=== PATIENT | female | born 1950 | race Caucasian/White ===

== ENCOUNTER → 2017-12-06 09:41 | Outpatient (CLI) | payer MEDICARE, OTHER, SELFPAY ==
--- NOTE | 2017-12-06 09:51 | XR_ITS ---
XR KUB HISTORY: ITS.REASON: SLOW TRANSIT CONSTIPATION,LLQ PAIN ORDERING PHYSICIAN: Apolonia Carbajal PATIENT AGE: 67 years COMPARISON: None FINDINGS: There is a moderate amount retained colonic feces throughout the colon. Full calcified gallstones are present. No evidence of small bowel obstruction. Small calcific densities overlie the kidneys and may be vascular. No acute bony anomalies. IMPRESSION: 1. Constipation. 2. Cholelithiasis
== END ==
PROVIDERS: PCP Nurse Practitioner Family; Visit Provider Nurse Practitioner Family
DX: R10.32 Left lower quadrant pain (principal); K59.01 Slow transit constipation
CPT/HCPCS: 74018

== ENCOUNTER → 2018-01-17 09:05 | Outpatient (CLI) | payer MEDICARE, OTHER, SELFPAY ==
[2018-01-17 10:18] LABS: Blood Urea Nitrogen 15 mg/dL (7-18); Creatinine,Serum 1.03 mg/dL (0.55-1.02); Estimated Glomerular Filt Rate 53 ml/min (>60); GFR (African American) 65 ML/MIN (>60)
--- NOTE | 2018-01-17 10:31 | CT_ITS ---
CT abdomen wo/w con CLINICAL INDICATION: ITS.REASON: LEFT KIDNEY MASS ORDERING PHYSICIAN: Apolonia Carbajal PATIENT AGE: 67 years COMPARISON: 12/17/2017 TECHNIQUE: Axial images obtained without and with contrast with sagittal and coronal reformats. All CT scans at the facility use one or more dose reduction, viz: automated exposure control, ma/kV adjustment per patient size (including targeted exams where dose is matched to indication, i.e. head), or iterative reconstruction technique. PROCEDURE: Oral Contrast: None IV Contrast: 75 mL of Isovue-370. FINDINGS: Lung base images show coronary artery calcifications. Hypoattenuating left breast mass once again noted at 4 cm consistent with seroma. Gallstones with distended gallbladder is noted.. On the portal venous phase enhanced images there are multiple small hypoattenuating lesions within the liver. 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 In addition, there are several isodense lesion of the spleen which are demonstrated on the portal venous phase images measuring up to 16 mm not readily apparent on the delayed or unenhanced images possibly due to hemangiomas. There are small lymph nodes in the celiac region. A parenchymal calcification present involving the left kidney superiorly and laterally at 4 mm no change with associated scar. There is an exophytic left renal nodule measuring 2 cm along the lower pole of the left kidney. Unenhanced density is 38 Hounsfield units. This does show some mild enhancement of 67 Hounsfield units. Delayed images show the density of 30 Hounsfield units. This may very well be due to a complex cyst. Ultrasound may confirm. No hydronephrosis. 3. Moderate amount retained colonic feces. IMPRESSION: 1. 2 cm left renal exophytic nodule which may be due to a complex cyst. Consider ultrasound for confirmation. 2. Multiple hypoattenuating small hepatic lesions as described above seen only on the immediate enhanced images consistent with biliary hamartomas 3. Cholelithiasis. 4. Hypoattenuating splenic lesions seen on the portal phase images which may be due to hemangiomas
== END ==
PROVIDERS: PCP Nurse Practitioner Family; Visit Provider Nurse Practitioner Family
DX: N28.89 Other specified disorders of kidney and ureter (principal)
CPT/HCPCS: 36415; 74170; 82565; 84520; Q9967

== ENCOUNTER → 2018-02-01 09:40 | Outpatient (CLI) | payer MEDICARE, OTHER, SELFPAY ==
--- NOTE | 2018-02-01 09:41 | US_ITS ---
US abdomen complete HISTORY: Abdominal pain and weight loss ITS.REASON: gallbladder problem, abdominal pain ORDERING PHYSICIAN: Jorge Walker MD PATIENT AGE: 67 years COMPARISON: None FINDINGS: PANCREAS:Unremarkable. No obvious mass or abnormal fluid collection. No ductal dilatation LIVER:No focal liver lesions demonstrated. Homogeneous echogenicity. No intrahepatic biliary ductal dilatation evident. There is appropriate direction of blood flow within a normal sized portal vein RIGHT KIDNEY:Normal size right kidney with some mild cortical scarring. A 13 mm cyst is present along the upper pole. LEFT KIDNEY:No hydronephrosis. Mild cortical scarring. 2.5 cm cyst is present along the lower pole and a 2.3 cm cyst along the upper pole. GALLBLADDER:Gallstones are present. Gallbladder is slightly distended and a x 4.5 cm. No gallbladder wall thickening, pericholecystic fluid, or common duct dilatation. AORTA:No evidence of aneurysmal dilatation. SPLEEN:Unremarkable. Normal size and echogenicity ASCITES:None demonstrated. IMPRESSION: 1. Cholelithiasis with mildly distended gallbladder 2. Bilateral renal cysts
--- NOTE | 2018-02-01 12:28 | CI_ITS ---
Cerebrovascular Exam Indications: 785.9 Bruit. IMPRESSIONS 1. The bilateral vertebral arteries are patent with normal antegrade flow. 2. Study suggests less than 20% stenosis involving the right internal carotid artery. 3. Study suggests 20-49% stenosis involving the left internal carotid artery, lower end of the scale. Carotid duplex study. Complete study and Doppler flow study including spectral analysis, color and patterson scale imaging. Weight: Weight: 63.5kg. Weight: 139.7lb. Location: Vascular laboratory. Patient status: Outpatient. Tables: Arterial flow: + +--------+--------+ Location V sys V ed + +--------+--------+ Right CCA - proximal 74.8cm/s 11.3cm/s + +--------+--------+ Right CCA - distal 55.3cm/s 15.1cm/s + +--------+--------+ Right ECA 52.2cm/s -------- + +--------+--------+ Right ICA - proximal 55.3cm/s 22cm/s + +--------+--------+ Right ICA - mid 68.5cm/s 24.5cm/s + +--------+--------+ Right ICA - distal 111cm/s 32.1cm/s + +--------+--------+ Right vertebral 46.5cm/s -------- + +--------+--------+ Left CCA - proximal 61.6cm/s 8.2cm/s + +--------+--------+ Left CCA - distal 51.5cm/s 13.2cm/s + +--------+--------+ Left ECA 53.1cm/s -------- + +--------+--------+ Left ICA - proximal 46.4cm/s 13.6cm/s + +--------+--------+ Left ICA - mid 64.9cm/s 22cm/s + +--------+--------+ Left ICA - distal 67.7cm/s 19.2cm/s + +--------+--------+ Left vertebral 50.6cm/s -------- + +--------+--------+ Velocity ratios: + + + + + + Right, V sys Right, V ed Left, V sys Left, V ed + + + + + + Max ICA/dist CCA 2.01 2.13 1.31 1.67 + + + + + + (Report amended ) Electronically signed by: Miles Stone [id number]
== END ==
PROVIDERS: PCP Nurse Practitioner Family; Visit Provider Surgery
DX: K82.9 Disease of gallbladder, unspecified (principal); R10.9 Unspecified abdominal pain; E11.9 Type 2 diabetes mellitus without complications; I45.10 Unspecified right bundle-branch block; R09.89 Other specified symptoms and signs involving the circulatory and respiratory systems; Z01.818 Encounter for other preprocedural examination
CPT/HCPCS: 76700; 93880

== ENCOUNTER → 2018-04-21 14:11 | Outpatient (CLI) | payer MEDICARE, OTHER, SELFPAY ==
[2018-04-21 14:56] LABS: Basophils % 0.2 % (0.1-2.0); Eosinophils % 0.2 % (0.1-12.0); Hematocrit 35.1 % (37.0-47.0); Hemoglobin 12.4 g/dL (12.2-16.2); Lymphocytes # 1.2 K/mm3 (0.7-4.5); Lymphocytes % 11.8 % (10-50); Mean Corpuscular HGB Conc 35.3 g/dL (31.8-35.4); Mean Corpuscular Hemoglobin 31.4 pg (27.0-31.2); Mean Corpuscular Volume 88.8 fl (81-99); Mean Platelet Volume 6.7 fl (7.4-10.4); Monocytes # 0.8 K/mm3 (0.1-1.0); Monocytes % 7.7 % (1.7-9.3); Neutrophils # 7.8 K/mm3 (1.8-7.8); Neutrophils % 80.1 % (37.0-80.0); Platelet Count 167 K/mm3 (142-424); Red Blood Count 3.95 M/mm3 (4.20-5.40); Red Cell Distribution Width 14.5 % (11.5-17.5); White Blood Count 9.8 K/mm3 (4.8-10.8)
[2018-04-21 16:09] LABS: Alanine Aminotransferase 13 U/L (12-78); Albumin Level 3.4 gm/dL (3.4-5.0); Albumin/Globulin Ratio 1.1 (1.1-1.8); Alkaline Phosphatase 96 U/L (46-116); Anion Gap 15.8 mEq/L (5-15); Aspartate Amino Transferase 11 U/L (15-37); Bilirubin,Total 0.6 mg/dL (0.2-1.0); Blood Urea Nitrogen 18 mg/dL (7-18); Calcium 9.2 mg/dL (8.5-10.1); Carbon Dioxide 27 mmol/L (21.0-32.0); Chloride 98 mmol/L (98-107); Creatinine,Serum 1.14 mg/dL (0.55-1.02); Estimated Glomerular Filt Rate 47 ml/min (>60); Free T4 (Free Thyroxine) 1.05 ng/dl (0.76-1.46); GFR (African American) 57 ML/MIN (>60); Globulin 3.1 gm/dl (1.3-3.2); Glucose 154 mg/dL (74-106); Magnesium 1.8 mg/dL (1.4-2.2); Sodium 138 mmol/L (136-145); Thyroid Stimulating Hormone 4.16 uIU/ml (0.358-3.740); Total Protein,Serum 6.5 gm/dL (6.4-8.2)
[2018-04-21 16:25] LABS: Potassium 2.8 mmoL/L (3.5-5.1)
== END ==
PROVIDERS: Visit Provider Nurse Practitioner Family
DX: R53.1 Weakness (principal); R63.4 Abnormal weight loss
CPT/HCPCS: 36415; 80053; 83735; 84439; 84443; 85025

== ENCOUNTER → 2018-06-01 12:38 | Outpatient (CLI) | payer MEDICARE, OTHER, SELFPAY ==
--- NOTE | 2018-06-01 12:48 | CT_ITS ---
CT head/brain wo con HISTORY: Memory loss, confusion, altered mental status ITS.REASON: memory changes ORDERING PHYSICIAN: Trisha Grider MD PATIENT AGE: 68 years COMPARISON: None TECHNIQUE: Axial images obtained without contrast. Brain and bone windows reviewed. All CT scans at the facility use one or more dose reduction, viz: automated exposure control, ma/kV adjustment per patient size (including targeted exams where dose is matched to indication, i.e. head), or iterative reconstruction technique. FINDINGS: No midline shift, mass effect, intracranial hemorrhage, hydrocephalus, or extra-axial fluid collection is evident. There is mild generalized atrophy with mild periventricular ischemic gliotic change. The calvarium has an unremarkable appearance. No mastoid effusion. No sinus air-fluid levels.. IMPRESSION: 1. No acute finding. 2. Atrophy with mild periventricular ischemic gliotic change
[2018-06-01 13:14] LABS: Blood Urea Nitrogen 22 mg/dL (7-18); Creatinine,Serum 1.08 mg/dL (0.55-1.02); Estimated Glomerular Filt Rate 50 ml/min (>60); GFR (African American) 61 ML/MIN (>60)
== END ==
PROVIDERS: Visit Provider Specialist
DX: F09 Unspecified mental disorder due to known physiological condition (principal); F20.9 Schizophrenia, unspecified; R41.3 Other amnesia
CPT/HCPCS: 36415; 70450; 82565; 84520

== ENCOUNTER → 2018-07-03 12:06 | Outpatient (CLI) | payer MEDICARE, OTHER, SELFPAY ==
[2018-07-03 13:58] LABS: Erythrocyte Sedimentation Rate 11 mm/hr (0-30)
[2018-07-03 15:52] LABS: Alanine Aminotransferase 12 U/L (12-78); Albumin Level 3.4 gm/dL (3.4-5.0); Albumin/Globulin Ratio 1.2 (1.1-1.8); Alkaline Phosphatase 126 U/L (46-116); Anion Gap 9.1 mEq/L (5-15); Aspartate Amino Transferase 10 U/L (15-37); Bilirubin,Total 0.3 mg/dL (0.2-1.0); Blood Urea Nitrogen 23 mg/dL (7-18); Calcium 8.9 mg/dL (8.5-10.1); Carbon Dioxide 32 mmol/L (21.0-32.0); Chloride 100 mmol/L (98-107); Creatinine,Serum 1.02 mg/dL (0.55-1.02); Estimated Glomerular Filt Rate 54 ml/min (>60); GFR (African American) 65 ML/MIN (>60); Globulin 2.9 gm/dl (1.3-3.2); Glucose 142 mg/dL (74-106); Potassium 4.1 mmoL/L (3.5-5.1); Sodium 137 mmol/L (136-145); Total Protein,Serum 6.3 gm/dL (6.4-8.2)
[2018-07-04 12:39] LABS: Folate 7.6 ng/mL (>3.0); Rapid Plasma Reagin Ab Titer Non Reactive (NonRea<1:1); Vitamin B12 692 pg/mL (232-1245)
[2018-07-04 14:31] LABS: Anti-Centromere B Antibodies <0.2 AI (0.0-0.9); Anti-Jo-1 <0.2 AI (0.0-0.9); Anti-Smith Antibody <0.2 AI (0.0-0.9); Antichromatin Antibodies <0.2 AI (0.0-0.9); Antiscleroderma-70 Antibodies <0.2 AI (0.0-0.9); RNP Antibodies <0.2 AI (0.0-0.9); Sjogren's Anti-SS-A <0.2 AI (0.0-0.9); Sjogren's Anti-SS-B <0.2 AI (0.0-0.9)
[2018-07-04 15:30] LABS: Anti-DNA (DS) Ab Qn <1 IU/mL (0-9)
== END ==
PROVIDERS: Visit Provider Specialist
DX: F09 Unspecified mental disorder due to known physiological condition (principal); F20.9 Schizophrenia, unspecified; R41.3 Other amnesia
CPT/HCPCS: 36415; 80053; 82607; 82746; 84443; 85651; 86225; 86235; 86592

== ENCOUNTER → 2019-01-22 09:37 | Outpatient (CLI) | payer MEDICARE, OTHER, SELFPAY ==
[2019-01-22 10:22] LABS: Basophils % 0.5 % (0.1-2.0); Eosinophils # 0.2 K/mm3 (0.0-0.4); Eosinophils % 4.5 % (0.1-12.0); Hemoglobin 12.7 g/dL (12.2-16.2); Lymphocytes # 1.5 K/mm3 (0.7-4.5); Lymphocytes % 29.9 % (10-50); Mean Corpuscular HGB Conc 33.4 g/dL (31.8-35.4); Mean Corpuscular Hemoglobin 30.4 pg (27.0-31.2); Mean Corpuscular Volume 91.2 fl (81-99); Mean Platelet Volume 7.5 fl (7.4-10.4); Monocytes # 0.3 K/mm3 (0.1-1.0); Neutrophils # 2.9 K/mm3 (1.8-7.8); Neutrophils % 59.1 % (37.0-80.0); Platelet Count 157 K/mm3 (142-424); Red Blood Count 4.16 M/mm3 (4.20-5.40); Red Cell Distribution Width 12.9 % (11.5-17.5); White Blood Count 4.9 K/mm3 (4.8-10.8)
[2019-01-22 10:27] LABS: INR 0.99 (0.9-1.1); Prothrombin Time 10.3 seconds (9.4-11.8)
== END ==
PROVIDERS: Visit Provider Nurse Practitioner Family
DX: R42 Dizziness and giddiness (principal); R53.1 Weakness; Z51.81 Encounter for therapeutic drug level monitoring
CPT/HCPCS: 36415; 85025; 85610

== ENCOUNTER → 2019-04-20 14:00 | Outpatient (CLI) | payer MEDICARE, OTHER, SELFPAY ==
--- NOTE | 2019-04-20 14:07 | XR_ITS ---
PROCEDURE: XR LUMBAR SPINE MIN 4V CLINICAL INDICATION: LOW BACK PAIN COMPARISON: ABDWW CT abdomen wo/w con from 01/17/2018 FINDINGS: There straightening of the lumbar lordosis. There is multilevel degenerative disc disease at T12-L1 L1-L2 L2-L3 L4-5 and L5-S1. No fracture or dislocation. Multiple gallstones are noted. There is a mild amount of retained colonic feces and there is mild lumbar curvature convex right. Small bilateral renal calcifications are present and could be vascular. IMPRESSION: 1. Lumbar spondylosis. 2. Cholelithiasis Dictated by: Miles Stone MD 04/20/2019 17:47 Electronically signed by Miles Stone MD in [place] 04/20/2019 17:47
== END ==
PROVIDERS: PCP Nurse Practitioner Family; Visit Provider Nurse Practitioner Family
DX: M54.5 Low back pain (principal)
CPT/HCPCS: 72110

== ENCOUNTER → 2019-05-24 10:18 | Outpatient (CLI) | payer MEDICARE, OTHER, SELFPAY ==
--- NOTE | 2019-05-24 10:21 | MM_ITS ---
PROCEDURE: MM DIG SCREENING MAMM BI W/CAD CLINICAL INDICATION: SCREENING A history of breast cancer patient's maternal aunt. There has been a previous lumpectomy with follow-up radiation therapy left breast. COMPARISON: DIAG MAMMO BI-LAT W/ CAD from 03/07/2014 DIAG MAMMO BI-LAT W/ CAD from 08/28/2015 [facility] DIG MAMM-SCREEN KIMBERLY W/CAD from 10/06/2016 TECHNIQUE: Standard CC and MLO images were obtained. Mónica images were performed. FINDINGS: Prominent diffuse scattered fibroglandular densities are seen in both breasts. There is a large stable asymmetric density just deep to the nipple left breast at the previous lumpectomy site with inward dimpling of the skin and nipple. There are surgical clips at the lumpectomy site. There are scattered benign-appearing microcalcifications in each breast. There is a stable cluster of benign-appearing microcalcifications lower inner quadrant right breast. . There is stable asymmetric benign-appearing nodular density upper right breast. There is minimal scattered arterial calcification in each breast. There is no new or suspicious lesion in either breast mónica images were reviewed showing no suspicious abnormality. IMPRESSION: Moderate diffuse breast density with stable and postsurgical changes as described above BI-RAD Category: 2 Benign Finding(s) FOLLOW-UP: 1YR 1 Year Follow-up (A letter has been sent to the patient regarding results of the study.) Dictated by: Dr. Jesse Thomas MD 05/29/2019 09:[address] Jesse Thomas MD in [place] 05/29/2019 09:32
== END ==
PROVIDERS: PCP Nurse Practitioner Family; Visit Provider Nurse Practitioner Family
DX: Z12.31 Encounter for screening mammogram for malignant neoplasm of breast (principal)
CPT/HCPCS: 77063; 77067

== ENCOUNTER → 2019-11-22 13:56 | Outpatient (CLI) | payer MEDICARE, OTHER, SELFPAY ==
--- NOTE | 2019-11-22 14:04 | XR_ITS ---
PROCEDURE: XR SHOULDER RT MIN 2V CLINICAL INDICATION: RT SHOULDER INJURY Pain COMPARISON: No exams were available for comparison FINDINGS: No fracture or dislocation. No lytic or blastic change. There is normal mineralization. There is some mild cortical regularity of the greater tuberosity which may be seen with rotator cuff disease. Other findings:None. IMPRESSION: Mild irregularity at the greater tuberosity which may be seen with rotator cuff disease otherwise negative Dictated by: Miles Stone MD 11/22/2019 14:31 Electronically signed by Miles Stone MD in [place] 11/22/2019 14:31
== END ==
PROVIDERS: PCP Nurse Practitioner Family; Visit Provider Nurse Practitioner Family
DX: S49.91XA Unspecified injury of right shoulder and upper arm, initial encounter (principal)
CPT/HCPCS: 73030

== ENCOUNTER → 2020-01-01 12:59 | Outpatient (CLI) | payer MEDICARE, OTHER, SELFPAY ==
--- NOTE | 2020-01-01 | MR_ITS ---
PROCEDURE: MR SHOULDER RT WO CON CLINICAL INDICATION: RT SHOULDER PAIN Pt c/o rt shoulder pain. She states she may have injured it pulling up on a walker to stand. Prior xray rt shoulder 11/22/2019 COMPARISON: CR XR SHOULDER RT MIN 2V from 11/22/2019 TECHNIQUE: Routine multiplanar multi echo sequences are performed without gadolinium enhancement. FINDINGS: There are hypertrophic changes of the acromioclavicular joint. There is a complete tear of the supraspinatus tendon in its mid aspect along the mid aspect of the humeral head region. There is mild retraction of the supraspinatus muscle and tendon. The infraspinatus tendon appears intact.. There appears to be a partial tear of the subscapularis tendon distally and superiorly. The teres minor tendon is intact. The long head of the biceps tendon is not visualized superiorly and could be torn. There is good degree of motion artifact at this area as well which could obscure the tendon. No obvious labral tear. There is a small shoulder joint effusion. Fluid is present in subcoracoid region and in the subacromial area. Small amount fluid also present in the subdeltoid area. There is a small amount of edema within the humeral neck. Osteoarthritic changes are present at the glenohumeral joint. IMPRESSION: 1. Complete tear of the supraspinatus tendon 2. Partial tear of the subscapularis tendon 3. The long head of the biceps tendon is not adequately visualized superiorly and may also be torn. There is some fluid in the bicipital tendon sheath. Motion artifact does obscure visualization at this area and could give the false impression of a bicipital tendon tear. 4. Osteoarthritic change with shoulder joint effusion and subcoracoid bursitis Dictated by: Miles Stone MD 01/03/2020 09:37 Miles Stone MD in [place] 01/03/2020 09:37
== END ==
PROVIDERS: PCP Nurse Practitioner Family; Visit Provider Nurse Practitioner Family
DX: S49.91XA Unspecified injury of right shoulder and upper arm, initial encounter (principal)
CPT/HCPCS: 73221

== ENCOUNTER 2020-04-02 14:00 | Outpatient (RCR) | payer MEDICARE, OTHER, SELFPAY ==
--- NOTE | 2020-02-27 10:48 | HMH.OTOPEV ---
OT Inpatient Evaluation Rehab OT Outpatient Eval Start: 02/27/20 10:18 Freq: Status: Active Protocol: Document 02/27/20 10:18 RMARSHALL (Rec: 02/27/20 10:48 [id number] Electronically Signed By Elyssa Marshall OT 02/27/20 10:18 Outpatient Therapy Subjective History Subjective History Pt is a 69 year old female who reports to therapy for initial evaluation to right shoulder. Pt reports she injured her shoulder while pulling on her walker to stand up from her couch. She explains when she pulled herself up, her shoulder popped and she had immediate pain. According to her notes this accident happened in October . Pt has had an MRI completed confirming a complete tear at supraspinatus, partial tear at subscapularis, and a possible complete tear of long head of the biceps tendon ( not visible on MRI). Pt does demonstrate with decreased AROM and strength at right shoulder. Pt is right hand dominant. Pt expresses she does not want to have surgery due to health concerns ( diabetes). Pt will continue to be seen twice weekly in order to address all functional deficits of right shoulder. Chief Complaint Pain,Stiff,Weakness Symptom Type Ache,Throb,Sharp,Dull Symptoms Relieved By Rest/Positioning Symptoms Aggravated By Physical Activity,Lifting Prior Functional Limitations None Current Functional Limitations Reaching,Lifting,Housework, Dressing,Sleeping,Recreation Activity Symptom Description Intermittent,Activity Dependent Level of pain today (0-10) 0 Pain scale - at its best (0-10) 0 Pain scale - at its worst (0-10) 9 Shoulder/Elbow Eval Shoulder Objective Measurements Shoulder ROM Right Shoulder Abduction Active Range of 95 degrees Motion (degrees) Shoulder Flexion Active Range of Motion 85 degrees (degrees) Query Text:
--- NOTE | 2020-03-31 13:52 | HMH.RHREAS ---
Rehab Reassessment Rehab OP Re-assessment Start: 03/31/20 13:05 Freq: Status: Active Protocol: Document 03/31/20 13:05 MAVIS (Rec: 03/31/20 13:52 MAVIS [id number]) Electronically Signed By Elyssa Marshall OT 03/31/20 13:05 Rehab Re-assessment Subjective Subjective It still hurts. Objective Objective Notes Pt continues to be seen in order to address right shoulder deficits. Pt engages in R shoulder AROM/AAROM/ strengthening exercses. Pt also receives modalities in order to decrease pain/ inflammation at right shoulder . Assessment Progress Assessment Progressing as Expected Assessment Notes Pt reports she is still continuing to have pain at the right shoulder despite therapy treatment. However, pt's AROM has improved significantly since beginning therapy. Pt claims she realizes her motion is much better and she is now able to do tasks she was not able to do prior to therapy. Pt rates her pain at a 6/10 at worst now. Current R shoulder AROM; MMT Flex: 130 degrees; 3+ Abd: 150 degrees; 3+ ER: 75 degrees: 3+ IR: 60 degrees: 3+ Patient goals met Short term goals have been met Goals Not Met LTG Revised Goals Continue progressing towards shelter goals written on initial evaluation. Plan Plan Continue with OT plan of care at this time. Frequency of Therapy 2 x's a week Duration of therapy 4 more weeka Time and Billing Re-Eval Time 10 Re-Eval Billing Units 1 PHYSICIAN CERTIFICATION: I certify the specified therapy services for Bea Escobar are required, authorized, and reviewed every 30 days.
== END 2020-04-02 15:00 | disposition home or self-care (01) ==
LOC: OT 14:00
PROVIDERS: PCP Nurse Practitioner Family; Visit Provider Orthopaedic Surgery
DX: M75.101 Unspecified rotator cuff tear or rupture of right shoulder, not specified as traumatic (principal); M12.811 Other specific arthropathies, not elsewhere classified, right shoulder
CPT/HCPCS: 97014; 97110; 97164; 97166; G0283

== ENCOUNTER → 2020-06-26 14:12 | Outpatient (CLI) | payer MEDICARE, OTHER, SELFPAY ==
--- NOTE | 2020-06-26 14:28 | XR_ITS ---
PROCEDURE: XR ANKLE RT MIN 3V CLINICAL INDICATION: ACUTE RT ANKLE PAIN COMPARISON: No exams were available for comparison FINDINGS: No fracture or dislocation. No lytic or blastic change. There is normal mineralization. The joint spaces are well-preserved. No significant degenerative/arthritic changes. No erosive changes evident. Other findings:Generalized vascular calcification is present. IMPRESSION: No acute findings. Dictated by: Miles Stone MD 06/26/2020 14:56 Miles Stone MD in [place] 06/26/2020 14:56
== END ==
PROVIDERS: PCP Nurse Practitioner Family; Visit Provider Nurse Practitioner Family
DX: M25.571 Pain in right ankle and joints of right foot (principal)
CPT/HCPCS: 73610

== ENCOUNTER → 2020-07-30 08:37 | Outpatient (CLI) | payer MEDICARE, OTHER, SELFPAY ==
--- NOTE | 2020-07-30 | US_ITS ---
APPROVED REPORT Exam Type: Ankle to Brachial Index Behaviorist: Lise RCS, RVS Indications Rest Pain: Right complains of burning sensation in right foot Risk Factors Hypertension Hyperlipidemia Pressures/Indices Right Indices Left Indices Brachial 172.00 mmHg Brachial 169.00 mmHg Low Thigh 194.00 mmHg 1.13 Low Thigh 184.00 mmHg 1.07 Ankle(PT) Ankle(PT) 164.00 mmHg 0.95 Ankle(DP) Ankle(DP) 202.00 mmHg 1.17 Digit 131.00 mmHg 0.76 Digit 161.00 mmHg 0.94 Findings RT TEREZA=Non compressible LT TEREZA=1.17 RT TPI=0.76 LT TPI=0.94 Conclusion RT TEREZA=Non compressible LT TEREZA=1.17 RT TPI=0.76 LT TPI=0.94 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
--- NOTE | 2020-07-30 08:41 | US_ITS ---
PROCEDURE: US KIDNEY CLINICAL INDICATION: NODULE OF KIDNEY COMPARISON: No exams were available for comparison FINDINGS: The right kidney is 10cmx5.2x5cm. No hydronephrosis, cortical thinning, or renal mass or perinephric fluid collection is evident. The left kidney is [id number]. No hydronephrosis, cortical thinning, or renal soft tissue mass or perinephric fluid collection is evident. Anechoic lesions are noted in the kidneys bilaterally measuring up to 1.2 centimeters. No other focal suspicious masses. The Multiple gallstones are partially visualized. IMPRESSION: Bilateral renal anechoic lesions measuring up to 1.2 centimeters, likely represent cysts. Dictated by: Alaina Sparrow 07/30/2020 11:20 Alaina Sparrow in [place] 07/30/2020 11:20
== END ==
PROVIDERS: PCP Nurse Practitioner Family; Visit Provider Nurse Practitioner Family
DX: M79.604 Pain in right leg (principal); M79.605 Pain in left leg; R09.89 Other specified symptoms and signs involving the circulatory and respiratory systems; N28.89 Other specified disorders of kidney and ureter
CPT/HCPCS: 76770; 93923

== ENCOUNTER → 2020-08-07 11:37 | Outpatient (CLI) | payer MEDICARE, OTHER, SELFPAY ==
--- NOTE | 2020-08-07 12:16 | MM_ITS ---
PROCEDURE: MM DIG SCREENING MAMM BI W/CAD Digital Breast Tomosynthesis Included CLINICAL INDICATION: SCREENING There has been a previous lumpectomy for malignancy left breast. There is history of breast cancer patient's maternal. COMPARISON: MG DIAG MAMMO BI-LAT W/ CAD from 08/28/2015 MG [facility] DIG MAMM-SCREEN KIMBERLY W/CAD from 10/06/2016 MG MM DIG SCREENING MAMM BI W/CAD from 05/24/2019 TECHNIQUE: Standard CC and MLO images and 3D Tomosynthesis was obtained. R2 CAD reviewed. FINDINGS: Again noted is a large mass deep to the nipple left breast associated surgical clips inward retraction and these findings are stable unchanged from 3 previous mammograms consistent previous lumpectomy. There is mild spiculation of the border of this mass but this has been seen previously and is stable. There is mild diffuse skin thickening probably due to previous radiation therapy. Scattered fibroglandular densities are seen throughout both breast. There is arterial calcification in both breasts and scattered benign-appearing microcalcifications are seen in both breasts. A stable benign-appearing nodular density upper-outer quadrant right breast. IMPRESSION: Stable mass and post lumpectomy scarring left breast with no suspicious lesion right breast BI-RAD Category: 2 Benign Finding(s) FOLLOW-UP: 1YR 1 Year Follow-up (A letter has been sent to the patient regarding results of the study.) Dictated by: Dr. Jesse Thomas MD 08/08/2020 11:59 Dr. Jesse Thomas MD in [place] 08/08/2020 11:59
== END ==
PROVIDERS: PCP Nurse Practitioner Family; Visit Provider Nurse Practitioner Family
DX: Z12.31 Encounter for screening mammogram for malignant neoplasm of breast (principal)
CPT/HCPCS: 77063; 77067

== ENCOUNTER → 2021-06-15 10:01 | Outpatient (CLI) | payer MEDICARE, OTHER, SELFPAY ==
--- NOTE | 2021-06-15 | US_ITS ---
FINAL REPORT CLINICAL HISTORY: ELEVATED LIVER ENZYMES FINDINGS: Sonographic images of the right upper quadrant were obtained. The pancreas is partially obscured. The liver has increased echogenicity consistent with fatty infiltration. The gallbladder wall measures 4 mm which is mildly thickened but nonspecific. There are numerous stones, sludge and polyps in the gallbladder. There is no evidence of biliary ductal dilatation.The common duct measures 2 mm. Limited images of the right kidney shows a 1.4 cm cyst in the renal cortex. IMPRESSION: Right renal cyst as described. Fatty infiltrated liver. Numerous stones, sludge and polyps in the gallbladder. Mildly thickened gallbladder wall, cholecystitis is not excluded. If indicated, nuclear medicine hepatobiliary scan may be helpful. Reviewed, Interpreted and Dictated by Jorge Bush III, MD Transcribed by Ronda Mckenna Authenticated by Jorge Bush III, MD on 06/15/2021 12:30:05 PM [facility]
== END ==
PROVIDERS: PCP Family Medicine; Visit Provider Nurse Practitioner Family
DX: R74.8 Abnormal levels of other serum enzymes (principal)
CPT/HCPCS: 76705

== ENCOUNTER → 2021-08-06 10:51 | Outpatient (CLI) | payer MEDICARE, OTHER, SELFPAY ==
--- NOTE | 2021-08-06 10:55 | MM_ITS ---
PROCEDURE INFORMATION: Exam: MG Bilateral Screening 3D Mammography Exam date and time: 08/06/2021 10:57 AM Age: 71 years old Clinical indication: Screening examination; history of left lumpectomy for carcinoma TECHNIQUE: Imaging protocol: Bilateral Screening tomosynthesis and 2D mammography including computer-aided detection (CAD) when performed. COMPARISON: 1. MG MM DIG SCREENING MAMM BI W/CAD 08/07/2020 1:01 PM 2. MG MM DIG SCREENING MAMM BI W/CAD 05/24/2019 11:00 AM FINDINGS: MAMMOGRAPHY: Breast composition: The breast tissue is composed of scattered areas of fibroglandular density. Mass: Stable 4.6 cm mass in the lumpectomy site, most likely reflecting a chronic seroma Architectural distortion: Stable post operative architectural distortion in the left central breast with associated overlying skin thickening and retraction due to prior lumpectomy for carcinoma. Calcifications: No suspicious calcifications. Asymmetric density: None. Skin thickening: see above. Axillary adenopathy: There is very limited evaluation of the posterior left breast due to the patient's inability to fully cooperate with the examination. IMPRESSION: No mammographic evidence of malignancy. Annual screening is recommended unless otherwise clinically indicated. ASSESSMENT: BI-RADS Category 2: Benign
== END ==
PROVIDERS: PCP Nurse Practitioner Family; Visit Provider Nurse Practitioner Family
DX: Z12.31 Encounter for screening mammogram for malignant neoplasm of breast (principal)
CPT/HCPCS: 77063; 77067

== ENCOUNTER 2022-02-19 11:00 | Outpatient (RCR) | payer MEDICARE, OTHER, SELFPAY | END 2022-02-19 11:05 | disposition home or self-care (01) | LOC: OT 11:00 | PROVIDERS: PCP Nurse Practitioner Family; Visit Provider Nurse Practitioner Family | DX: M25.511 Pain in right shoulder (principal); S46.011D Strain of muscle(s) and tendon(s) of the rotator cuff of right shoulder, subsequent encounter | CPT/HCPCS: 97010; 97014; 97110; 97140; 97166; G0283 ==

== ENCOUNTER → 2022-05-14 13:37 | Outpatient (CLI) | payer MEDICARE, OTHER, SELFPAY ==
--- NOTE | 2022-05-14 13:41 | MM_ITS ---
PROCEDURE INFORMATION: Exam: MG Left Diagnostic Breast Tomosynthesis Exam date and time: 05/14/2022 1:47 PM Age: 72 years old Clinical indication: Concern for left axillary swelling. Personal history of left breast cancer, status post lumpectomy. TECHNIQUE: Imaging protocol: Left Diagnostic tomosynthesis and 2D mammography including computer-aided detection (CAD) when performed. Unilateral or bilateral exam. COMPARISON: 1. MG MM DIG SCREENING MAMM BI W/CAD 08/06/2021 10:57 AM 2. MG MM DIG SCREENING MAMM BI W/CAD 08/07/2020 1:01 PM 3. MG MM DIG SCREENING MAMM BI W/CAD 05/24/2019 11:00 AM 4. MG [facility] DIG MAMM-SCREEN KIMBERLY W/CAD 10/06/2016 10:20 AM FINDINGS: MAMMOGRAPHY: Breast composition: There are scattered areas of fibroglandular density. Mass: Stable 4.6 cm mass at the lumpectomy site most likely reflecting a chronic seroma. No suspicious mass. Architectural distortion: Stable postoperative architectural distortion deformity in retraction in the left central breast related to lumpectomy. Calcifications: No suspicious calcifications. Asymmetric density: None. Skin thickening: Stable skin thickening. Axillary adenopathy: Limited visualization of the axilla and posterior left breast due to history of the patient's inability to cooperate fully with the examination. IMPRESSION: Patient will be recalled for left axillary ultrasound for further evaluation of left axilla, with history of left axillary swelling and limited visualization of the left axilla on mammography. Further evaluation of a palpable abnormality should be based on clinical grounds regardless of radiographic findings or lack thereof. No mammographic evidence of malignancy. ASSESSMENT: BI-RADS Category 0: Incomplete- Need Additional Imaging Evaluation and/or Prior Mammograms for Comparison
--- NOTE | 2022-05-14 13:41 | US_ITS ---
PROCEDURE INFORMATION: Exam: US Left Breast, Complete Exam date and time: 05/14/2022 3:07 PM Age: 72 years old Clinical indication: Arm, upper; Left; Patient HX: PT has lt axillary swelling-- scanned RT breast also; Additional info: L axillary swelling, HX of breast cancer TECHNIQUE: Imaging protocol: Complete ultrasound of all four quadrants of the Left breast and the retroareolar regions, including ultrasound of the axilla when performed. COMPARISON: No relevant recent comparison exams. FINDINGS: Breast: High resolution sonography of the LEFT breast shows marked shadowing at site of lumpectomy with questionable underlying 3.1 x 4.5 cm nodule demonstrating punctate internal vascularity. A few scattered echogenic nodules with hypoechoic cortex adjacent to the site of the scar/axilla. IMPRESSION: 1. Questionable 3.1 x 4.5 cm nodule with extensive shadowing underlying the site lumpectomy scar. 2. Benign-appearing lymph nodes with diffusely fatty hilum adjacent to the surgical site/LEFT axilla. ASSESSMENT: BI-RADS 0: Need Additional Imaging Evaluation and/or Mammograms For Comparison
== END ==
PROVIDERS: PCP Nurse Practitioner Family; Visit Provider Nurse Practitioner Family
DX: M79.89 Other specified soft tissue disorders (principal); Z85.3 Personal history of malignant neoplasm of breast
CPT/HCPCS: 76882; 77061; 77065; G0279

== ENCOUNTER → 2022-08-09 12:52 | Outpatient (CLI) | payer MEDICARE, OTHER, SELFPAY ==
--- NOTE | 2022-08-09 12:55 | MM_ITS ---
PROCEDURE INFORMATION: Exam: MG Bilateral Screening 3D Mammography Exam date and time: 08/09/2022 12:50 PM Age: 72 years old Clinical indication: Screening mammogram TECHNIQUE: Imaging protocol: Bilateral Screening tomosynthesis and 2D mammography including computer-aided detection (CAD) when performed. COMPARISON: 1. The MG MM DIG MAMM DX UNILAT LT CAD 05/14/2022 1:47 PM 2. 05/24/2019 3. MG MM DIG SCREENING MAMM BI W/CAD 08/06/2021 10:57 AM 4. MG MM DIG SCREENING MAMM BI W/CAD 08/07/2020 1:01 PM 5. MG MM DIG SCREENING MAMM BI W/CAD 05/24/2019 11:00 AM FINDINGS: MAMMOGRAPHY: Breast composition: There are scattered areas of fibroglandular density. Mass: Stable benign-appearing nodules are present in the bilateral breasts. No new or morphologically suspicious nodule has developed to suggest malignancy. Architectural distortion: No new or suspicious architectural distortion. Calcifications: Stable benign-appearing calcifications are present. No new or suspicious cluster of microcalcifications have developed. Asymmetric density: No new or suspicious asymmetric density is present Skin thickening: None. Axillary adenopathy: None. Other findings: Stable postoperative findings on the left IMPRESSION: No mammographic evidence of malignancy. Recommend annual screening mammography unless otherwise clinically indicated. ASSESSMENT: BI-RADS category 2: Benign
== END ==
PROVIDERS: PCP Nurse Practitioner Family; Visit Provider Nurse Practitioner Family
DX: Z12.31 Encounter for screening mammogram for malignant neoplasm of breast (principal)
CPT/HCPCS: 77063; 77067

== ENCOUNTER → 2022-09-16 13:46 | Outpatient (CLI) | payer MEDICARE, OTHER, SELFPAY ==
[2022-09-16 14:41] LABS: Basophils % 0.4 % (0.1-2.0); Eosinophils # 0.2 K/mm3 (0.0-0.4); Hematocrit 42.4 % (37.0-47.0); Hemoglobin 13.9 g/dL (12.2-16.2); Lymphocytes # 1.8 K/mm3 (0.7-4.5); Lymphocytes % 29.9 % (10-50); Mean Corpuscular HGB Conc 32.8 g/dL (31.8-35.4); Mean Corpuscular Hemoglobin 30.8 pg (27.0-31.2); Mean Corpuscular Volume 93.8 fl (81-99); Mean Platelet Volume 8.1 fl (7.4-10.4); Monocytes # 0.4 K/mm3 (0.1-1.0); Monocytes % 7.2 % (1.7-9.3); Neutrophils # 3.5 K/mm3 (1.8-7.8); Neutrophils % 59.5 % (37.0-80.0); Platelet Count 187 K/mm3 (142-424); Red Blood Count 4.52 M/mm3 (4.20-5.40); Red Cell Distribution Width 13.2 % (11.5-17.5); White Blood Count 5.9 K/mm3 (4.8-10.8)
[2022-09-16 15:29] LABS: Alanine Aminotransferase 24 U/L (12-78); Albumin Level 4.4 g/dl (3.5-5.0); Alkaline Phosphatase 163 U/L (38-126); Anion Gap 18.3 mEq/L (5-15); Aspartate Amino Transferase 31 U/L (14-36); Bilirubin,Indirect 0.3 mg/dL (0.0-0.9); Bilirubin,Total 0.3 mg/dl (0.2-1.3); Bilirubin,Unconjugated 0.5 mg/dL (0.0-1.1); Blood Urea Nitrogen 21 mg/dl (7-17); Calcium 9.2 mg/dl (8.4-10.2); Carbon Dioxide 29 mmol/L (22.0-30.0); Chloride 94 mmol/L (98-107); Chol/HDL Ratio 3.4 (1-3.5); Cholesterol 198 mg/dl (140-200); Estimated Glomerular Filt Rate 62 ml/min (>60); GFR (African American) 74 ML/MIN (>60); Glucose 212 mg/dl (74-100); HDL Cholesterol 58 mg/dl (40-60); Magnesium 1.9 mg/dl (1.6-2.3); Potassium 4.3 mmoL/L (3.5-5.1); Sodium 137 mmol/L (136-145); Total Protein,Serum 6.8 g/dl (6.3-8.2); Triglycerides 174 mg/dl (30-150); VLDL Cholesterol 35 mg/dL (0-40)
[2022-09-16 15:40] LABS: Direct LDL Cholesterol 106.15 mg/dL (100-129)
[2022-09-16 15:49] LABS: Free T4 (Free Thyroxine) 0.93 ng/dl (0.78-2.19)
[2022-09-16 16:00] LABS: Thyroid Stimulating Hormone 2.08 uIU/mL (0.465-4.68)
== END ==
PROVIDERS: PCP Nurse Practitioner Family; Visit Provider Nurse Practitioner
DX: E11.9 Type 2 diabetes mellitus without complications (principal); E78.5 Hyperlipidemia, unspecified; I10 Essential (primary) hypertension; I65.23 Occlusion and stenosis of bilateral carotid arteries; R06.00 Dyspnea, unspecified
CPT/HCPCS: 36415; 80048; 80061; 80076; 83735; 84439; 84443; 85025

== ENCOUNTER → 2022-09-22 12:33 | Outpatient (CLI) | payer MEDICARE, OTHER, SELFPAY ==
--- NOTE | 2022-09-22 12:47 | CA_ITS ---
FINAL REPORT TECHNIQUE: Color Doppler, duplex Doppler and patterson scale sonography of the bilateral neck arterial vasculature was performed. Velocities were measured in the carotid arteries. Stenosis evaluation based on the validated velocity criteria. CLINICAL HISTORY: baltazar, HTN, HLD, DM, dizziness. FINDINGS: The peak systolic velocity of the right common carotid artery is 67 cm/s. The peak systolic velocity of the right internal carotid artery is 107 cm/s and end diastolic velocity 21 cm/s. The ICA/CCA ratio is 2.1. A small amount of plaque is present. The right external carotid artery is patent. The right vertebral artery is patent with antegrade flow. The peak systolic velocity of the left common carotid artery is 70 cm/s. The peak systolic velocity of the left internal carotid artery is 69 cm/s and end diastolic velocity 18 cm/s. The ICA/CCA ratio is 1.1. A small amount of plaque is present. The left external carotid artery is patent.The left vertebral artery is patent with antegrade flow. IMPRESSION: Less than 50% bilateral carotid stenoses. Bilateral patent vertebral arteries with antegrade flow. If indicated, CTA or MRA could further evaluate. Reviewed, Interpreted and Dictated by Jorge Bush III, MD Transcribed by Elizabeth Banks Authenticated and [facility]
== END ==
PROVIDERS: PCP Nurse Practitioner Family; Visit Provider Nurse Practitioner Family
DX: E11.9 Type 2 diabetes mellitus without complications (principal); E78.5 Hyperlipidemia, unspecified; I10 Essential (primary) hypertension; I65.23 Occlusion and stenosis of bilateral carotid arteries; Z79.84 Long term (current) use of oral hypoglycemic drugs
CPT/HCPCS: 93880

== ENCOUNTER → 2022-09-30 14:12 | Outpatient (CLI) | payer MEDICARE, OTHER, SELFPAY ==
--- NOTE | 2022-09-30 14:26 | XR_ITS ---
FINAL REPORT CLINICAL HISTORY: RIGHT HIP PAIN. COMPARISON: None FINDINGS: RIGHT HIP Two views of the right hip demonstrate no acute fracture or dislocation. The visualized bony structures are well aligned. No soft tissue abnormality is seen. There is mild narrowing of the right hip joint with degenerative subchondral cyst formation in the acetabulum, particularly its lateral aspect. IMPRESSION: No acute bony abnormality. Mild degenerative change in the right hip as described above. Reviewed, Interpreted and Dictated by Rangel Meade MD Transcribed by Karen Ventura Authenticated and [facility]
== END ==
PROVIDERS: PCP Nurse Practitioner Family; Visit Provider Nurse Practitioner Family
DX: M25.551 Pain in right hip (principal)
CPT/HCPCS: 73502

== ENCOUNTER → 2023-02-21 11:38 | Outpatient (CLI) | payer MEDICARE, OTHER, SELFPAY ==
--- NOTE | 2023-02-21 11:49 | XR_ITS ---
FINAL REPORT CLINICAL HISTORY: ALKALINE PHOSPHATASE ABOVE REFERANCE RANGE FINDINGS: 2 views of the chest were obtained . The heart is normal in size. The mediastinum is within normal limits. The lungs are clear. There is no pneumothorax. Osseous structures are unremarkable. IMPRESSION: No acute cardiopulmonary process. Reviewed, Interpreted and Dictated by Jorge Bush III, MD Transcribed by Obdulia Gaxiola Authenticated and . [facility]
== END ==
PROVIDERS: PCP Nurse Practitioner Family; Visit Provider Nurse Practitioner Family
DX: R74.8 Abnormal levels of other serum enzymes (principal)
CPT/HCPCS: 71046

== ENCOUNTER → 2023-03-01 12:56 | Outpatient (CLI) | payer MEDICARE, OTHER, SELFPAY ==
--- NOTE | 2023-03-01 | US_ITS ---
FINAL REPORT CLINICAL HISTORY: DM, HLD, HTN, claudication. FINDINGS: COMPLETE ANKLE/BRACHIAL INDICES BILATERAL Complete ankle brachial indices were obtained. The right TEREZA is 1.1. The left TEREZA is 1.2. IMPRESSION: ABIs are within normal limits bilaterally. Reviewed, Interpreted and Dictated by Jorge Bush III, MD Transcribed by Elizabeth Banks Authenticated and [facility]
== END ==
PROVIDERS: PCP Nurse Practitioner Family; Visit Provider Nurse Practitioner Family
DX: R09.89 Other specified symptoms and signs involving the circulatory and respiratory systems
CPT/HCPCS: 93923

== ENCOUNTER → 2023-04-20 11:29 | Outpatient (CLI) | payer MEDICARE, OTHER, SELFPAY ==
[2023-04-20 11:51] LABS: Basophils % 0.3 % (0.1-2.0); Eosinophils # 0.2 K/mm3 (0.0-0.4); Eosinophils % 3.2 % (0.1-12.0); Hematocrit 39.3 % (37.0-47.0); Hemoglobin 13.6 g/dL (12.2-16.2); Lymphocytes # 1.7 K/mm3 (0.7-4.5); Lymphocytes % 28.5 % (10-50); Mean Corpuscular HGB Conc 34.6 g/dL (31.8-35.4); Mean Corpuscular Hemoglobin 31.8 pg (27.0-31.2); Mean Corpuscular Volume 91.9 fl (81-99); Mean Platelet Volume 7.4 fl (7.4-10.4); Monocytes # 0.4 K/mm3 (0.1-1.0); Monocytes % 7.6 % (1.7-9.3); Neutrophils # 3.5 K/mm3 (1.8-7.8); Neutrophils % 60.5 % (37.0-80.0); Platelet Count 143 K/mm3 (142-424); Red Blood Count 4.27 M/mm3 (4.20-5.40); Red Cell Distribution Width 13.4 % (11.5-17.5); White Blood Count 5.8 K/mm3 (4.8-10.8)
[2023-04-20 12:26] LABS: Chloride 94 mmol/L (98-107); Sodium 133 mmol/L (136-145)
[2023-04-20 12:28] LABS: Alanine Aminotransferase 31 U/L (12-78); Aspartate Amino Transferase 36 U/L (14-36); Bilirubin,Unconjugated 0.1 mg/dL (0.0-1.1); Blood Urea Nitrogen 27 mg/dl (7-17); Estimated Glomerular Filt Rate 54 ml/min (>60); GFR (African American) 66 ML/MIN (>60)
[2023-04-20 12:29] LABS: Albumin Level 4.2 g/dl (3.5-5.0); Alkaline Phosphatase 134 U/L (38-126); Bilirubin,Direct 0.3 mg/dl (0.0-0.4); Bilirubin,Indirect 0.1 mg/dL (0.0-0.9); Bilirubin,Total 0.4 mg/dl (0.2-1.3); Calcium 8.9 mg/dl (8.4-10.2); Carbon Dioxide 30 mmol/L (22.0-30.0); Chol/HDL Ratio 3.6 (1-3.5); Cholesterol 197 mg/dl (140-200); Glucose 250 mg/dl (74-100); HDL Cholesterol 55 mg/dl (40-60); Magnesium 1.9 mg/dl (1.6-2.3); Total Protein,Serum 6.7 g/dl (6.3-8.2); Triglycerides 115 mg/dl (30-150); VLDL Cholesterol 23 mg/dL (0-40)
[2023-04-20 12:41] LABS: Direct LDL Cholesterol 109.79 mg/dL (100-129)
[2023-04-20 12:46] LABS: Free T4 (Free Thyroxine) 1.02 ng/dl (0.78-2.19)
[2023-04-20 13:01] LABS: Thyroid Stimulating Hormone 2.12 uIU/mL (0.465-4.68)
== END ==
PROVIDERS: PCP Nurse Practitioner Family; Visit Provider Physician Assistant
DX: I10 Essential (primary) hypertension; R06.00 Dyspnea, unspecified; E16.2 Hypoglycemia, unspecified; E11.8 Type 2 diabetes mellitus with unspecified complications
CPT/HCPCS: 36415; 80048; 80061; 80076; 83735; 84439; 84443; 85025

== ENCOUNTER → 2023-04-28 14:19 | Outpatient (CLI) | payer MEDICARE, OTHER, SELFPAY ==
--- NOTE | 2023-04-28 | CA_ITS ---
APPROVED REPORT EXAM: Comprehensive 2D, Doppler, and color-flow Echocardiogram Sales Development Manager: Karyna Morrison RT(R) Ht: 5 ft 6 in Wt: 158lbs BSA: 1.81 BP: 144/70 mmHg Indications: edema, HTN, DM, palpitations, SOB, CAD, left breast lumpectomy. 2D Dimensions Left Atrium 3.28 cm F: 2.7 - 3.8 EF AP4 44.90 % LVOT 1.91 cm (M/F) 1.5-2.5 GL Strain -14.4 % M-Mode Dimensions RVDd 2.71 cm (0.9-2.6) LVDd 3.82 cm (3.5-5.7) Ao Diam 2.59 cm (2.0-3.7) LVDs 1.56 cm (3.5-5.7) IVSd 0.99 cm (0.6-1.1) PWd 0.78 cm (0.6-1.1) EF (Teich) 89.30% FS 59.20% EDV (Teich) 62.70 mL ESV (Teich) 6.70 mL LV Diastology E Decel Time 164 (160-240 msec) E/A Ratio 0.7 MED E' 7.5 (>= 7 cm/sec) E'/MED E' Ratio 9.11 (<= 14) LAT E' 8.1 (>= 10 cm/sec) E/LAT E' Ratio 8.43 (<= 14) Mitral Valve MV E Max Smooth. 68.0 (40-130 cm/s) MV A Velocity 103.0 (40-130 cm/s) E/A Ratio 0.66 MV Decel. Time 164 (160-240 ms) Left Ventricle The left ventricle is normal size. The left ventricular systolic function is normal. The left ventricular ejection fraction is within the normal range. There is increased LV wall thickness. There is normal LV segmental wall motion. Transmitral Doppler flow pattern suggests impaired LV relaxation. LVEF is 55%. Right Ventricle The right ventricle is mildly dilated. The right ventricular systolic function is normal. Atria The left atrium size is normal. The right atrium size is normal. There is no Doppler evidence of interatrial shunt. Aortic Valve The aortic valve is mildly thickened. There is no aortic valvular stenosis. Trace aortic regurgitation. Mitral Valve The mitral valve leaflets are mildly thickened. No evidence of mitral valve stenosis. Trace mitral regurgitation. Tricuspid Valve The tricuspid valve leaflets are thin and pliable. Trace tricuspid regurgitation. There is insufficient TR jet to estimate RVSP. Pulmonic Valve The pulmonary valve is normal in structure. Trace pulmonic regurgitation. Great Vessels The aortic root is normal in size. The ascending aorta is normal in size. IVC is normal in size and collapses >50% with inspiration. Pericardium There is no pericardial effusion. Other Information Study Quality: Fair Conclusion Normal biventricular systolic function. Mild RV dilation. No significant valvular stenosis or regurgitation. Electronically signed by : Michelle Macias MD 05/01/2023 22:07:23
== END ==
LOC: RT 14:22
PROVIDERS: PCP Nurse Practitioner Family; Visit Provider Nurse Practitioner Family
DX: R60.0 Localized edema (principal)
CPT/HCPCS: 93306

== ENCOUNTER 2023-07-12 09:49 | Outpatient (CLI) | payer MEDICARE, OTHER, SELFPAY ==
[2023-07-12 10:54] LABS: Chloride 95 mmol/L (98-107); Potassium 3.8 mmoL/L (3.5-5.1); Sodium 135 mmol/L (136-145)
[2023-07-12 10:57] LABS: Anion Gap 8.8 mEq/L (5-15); Blood Urea Nitrogen 34 mg/dl (7-17); Carbon Dioxide 35 mmol/L (22.0-30.0); Estimated Glomerular Filt Rate 49 ml/min (>60); GFR (African American) 59 ML/MIN (>60)
[2023-07-12 10:58] LABS: Calcium 9.5 mg/dl (8.4-10.2); Glucose 203 mg/dl (74-100)
== END 2023-07-12 23:59 ==
PROVIDERS: PCP Nurse Practitioner Family; Visit Provider Physician Assistant
DX: E11.9 Type 2 diabetes mellitus without complications (principal); E78.5 Hyperlipidemia, unspecified; I10 Essential (primary) hypertension; R60.9 Edema, unspecified; R06.00 Dyspnea, unspecified; Z79.84 Long term (current) use of oral hypoglycemic drugs
CPT/HCPCS: 36415; 80048

== ENCOUNTER 2023-11-09 11:03 | Outpatient (CLI) | payer MEDICARE, OTHER, SELFPAY ==
--- NOTE | 2023-11-09 11:11 | XR_ITS ---
FINAL REPORT CLINICAL HISTORY: LOWER BACK PAIN COMPARISON: 04/20/2019 FINDINGS: LUMBAR SPINE Three views demonstrate no acute fracture. There are moderate degenerative changes. There is vacuum phenomenon at L4-5, worse than previous. Vascular calcification is identified. There is rightward curvature. There is no malalignment. IMPRESSION: Degenerative changes as above. Reviewed, Interpreted and Dictated by Jorge Bush III, MD Transcribed by Elizabeth Banks Authenticated and [facility]
--- NOTE | 2023-11-09 11:43 | XR_ITS ---
FINAL REPORT CLINICAL HISTORY: PAIN FINDINGS: THORACIC SPINE Two views demonstrate no acute fracture. There is rightward curvature of the thoracic spine. Mild and moderate degenerative changes are present. There are multiple presumed gallstones in the gallbladder. There is no malalignment. IMPRESSION: Degenerative changes as above. Presumed gallstones. Reviewed, Interpreted and Dictated by Jorge Bush III, MD Transcribed by Elizabeth Banks Authenticated and . [facility]
== END 2023-11-09 23:59 | disposition home or self-care (01) ==
LOC: RAD 11:04
PROVIDERS: PCP Nurse Practitioner Family; Visit Provider Nurse Practitioner Family
DX: M54.50 Low back pain, unspecified (principal); T14.8XXA Other injury of unspecified body region, initial encounter
CPT/HCPCS: 72070; 72100

== ENCOUNTER 2025-03-11 11:14 | Inpatient (IN) | payer MEDICARE, MEDICAID, SELFPAY ==
--- OUTSIDE RECORDS SUMMARY | 2024-02-27 08:53 | XMS_ITS | Encounter Summary ---
Author Organization [place] [address] Care Team Providers Care Naturopathic Doctor Name Role Phone Apolonia Carbajal TAX INTERN Primary Care Provider Encounter Details Date Type Department Care Team (Late st Contact Info) Description 02/27/2024 9:53 AM EDT Hospital Encounter [facility] Referral Lab [address] [place], [place] [id number] Arnaldo Orr MD [address] [place] [address] Social History Tobacco Use Types Packs/Day Years Used Date Smoking Tobacco: Never Smokeless Tobacco: Never Alcohol Use Standard Drinks/Week Comments Never 0 (1 standard drink = 0.6 oz pur e alcohol) Sexually Active Control Partners Comments Not Currently Male Comments No Sex and Gender Information Value Date Recorded Sex Assigned at Not on file Legal Sex Female 5:44 PM EDT Gender Identity Not on file Sexual Orientation Not on file documented as of this encounter Plan of Treatment Not on file documented as of this encounter Results * (ABNORMAL) URINALYSIS (02/27/2024 12:50 PM EDT) UA Color Colorless 02/27/2024 4:42 PM EDT [facility] UA Appear Clear Clear 02/27/2024 4:42 PM EDT [facility] UA Glucose 4+ (>1000mg/dL) (A) Negative mg/dL 02/27/2024 4:42 PM EDT [facility] UA Ketones Negative Negative mg/dL 02/27/2024 4:42 PM EDT [facility] UA Blood Negative Negative 02/27/2024 4:42 PM EDT [facility] UA pH 6.5 5.0 - 8.0 pH 02/27/2024 4:42 PM EDT [facility] UA Protein Negative Negative mg/dL 02/27/2024 4:42 PM EDT [facility] UA Urobilinogen Normal <=1 mg/dL 4:42 PM EDT [facility] UA Bili Negative Negative 02/27/2024 4:42 PM EDT [facility] UA Nitrite Negative Negative 02/27/2024 4:42 PM EDT [facility] UA Leuk Est 2+ (75 Javier/mcl)(A) Negative 02/27/2024 4:42 PM EDT [facility] UA Spec Grav 1.023 1.001 - 1.035 no units 02/27/2024 4:42 PM EDT [facility] Comment:Reference range vanessa d for random specimens only. UA WBC 6(H) 0 - 4 /HPF 02/27/2024 4:42 PM EDT [facility] UA RBC 2 0 - 3 /HPF 02/27/2024 4:42 PM EDT [facility] UA Squam Epi 2+ /LPF 02/27/2024 4:42 PM EDT [facility] UA Mucus Trace /LPF 02/27/2024 4:42 PM EDT [facility] Urine URINE SPECIMEN COLLECTION, CLEAN CATCH / Unknown 02/27/2024 12:50 PM EDT 02/27/2024 4:27 PM EDT us Arnaldo Orr MD URINE ORDERABLES Final Result [facility] [address] [facility] , [place] [address] documented in this encounter Visit Diagnoses Not on filedocumented in this encounter Care Teams Naturopathic Doctor Relationship Specialty Start Date End Date Apolonia Carbajal APRN [address] [place] [address] PCP - General Nurse Practitioner-Family 09/13/17 documented as of this encounter
[2025-03-11] VITALS (16 sets, daily range): BP systolic 84–122; BP diastolic 38–82; PULSE 66–81; RESP 13–36; TEMP 36.4–36.8; O2SAT 86–100; BMI 31.6
--- NOTE | 2025-03-11 11:17 | XR_ITS ---
FINAL REPORT CLINICAL HISTORY: Shortness of breath COMPARISON: 01/01/2019 FINDINGS: A single frontal view of the chest was obtained. No acute pulmonary opacity is present. There is no evidence of effusion or pneumothorax. Mediastinum is unremarkable. Heart size is normal. IMPRESSION: No acute abnormality. Reviewed, Interpreted and Dictated by Jennifer Jacinto MD Transcribed by Jessica Che Authenticated and [facility]
--- NOTE | 2025-03-11 11:20 | PC.NURSE ---
Pt NT suctioned at this time. Thick white/yellow sputum suctioned.
--- NOTE | 2025-03-11 11:25 | CT_ITS ---
FINAL REPORT TECHNIQUE: Axial images were performed through the brain.This study was performed with techniques to keep radiation doses as low as reasonably achievable, (ALARA). Individualized dose reduction techniques using automated exposure control or adjustment of mA and/or kV according to the patient''s size were employed. CLINICAL HISTORY: AMS COMPARISON: 06/01/2018 FINDINGS: There is global moderate atrophy and chronic microvascular changes, stable from prior exam. The ventricles are normal in size for the degree of atrophy. There is no extra-axial fluid or midline shift. There is no evidence of acute hemorrhage or mass. IMPRESSION: Atrophy. No acute intracranial process. Reviewed, Interpreted and Dictated by Jennifer Jacinto MD Transcribed by Obdulia Gaxiola Authenticated and [facility]
--- NOTE | 2025-03-11 11:25 | ECG_ITS ---
APPROVED REPORT Exam: Resting ECG HR:65 bpm ECG Measurements Heart Rate 65 AXES ND 173 P 47 QRSd 151 QRS 90 QT 447 T 35 QTc 459 Conclusion SINUS RHYTHM INTRAVENTRICULAR CONDUCTION DELAY [130+ ms QRS DURATION] ANTERIOR MYOCARDIAL INFARCTION , OF INDETERMINATE AGE [40+ ms Q WAVE AND/OR ST/T ABNORMALITY IN V3/V4] INFERIOR MYOCARDIAL INFARCTION , OF INDETERMINATE AGE [40+ ms Q WAVE AND/OR ST/T ABNORMALITY IN II/aVF] ABNORMAL ECG UNCONFIRMED REPORT Electronically signed by : DEDRICK CHAVIS, 03/12/2025 05:23:29
--- NOTE | 2025-03-11 11:26 | CT_ITS ---
FINAL REPORT TECHNIQUE: IV contrast enhanced exam This study was performed with techniques to keep radiation doses as low as reasonably achievable, (ALARA). Individualized dose reduction techniques using automated exposure control or adjustment of mA and/or kV according to the patient''s size were employed. CLINICAL HISTORY: Sepsis, abdominal distention COMPARISON: 01/17/2018 FINDINGS: Abdomen: No acute density is seen within the lung bases. The gallbladder is unremarkable. Lower pole left renal cyst is stable. Remaining solid abdominal organs are unremarkable. Numerous tiny gallstones with distention of the gallbladder, similar to the prior study. No biliary ductal dilatation. No bowel obstruction is present. There is no free air. No fluid collection is seen. There is no adenopathy. Pelvis: The appendix is not seen, possibly removed at time of hysterectomy. Severe fecal impaction of the rectosigmoid colon. The distal sigmoid colon is distended up to 1.8 cm with stool. There is no free fluid. No pelvic mass is seen. IMPRESSION: Significant rectosigmoid fecal impaction. Cholelithiasis. Reviewed, Interpreted and Dictated by Jennifer Jacinto MD Transcribed by Jessica Che Authenticated and [facility]
--- NOTE | 2025-03-11 11:26 | CT_ITS ---
FINAL REPORT TECHNIQUE: Thin section axial CT with contrast with multiplanar reconstruction This study was performed with techniques to keep radiation doses as low as reasonably achievable, (ALARA). Individualized dose reduction techniques using automated exposure control or adjustment of mA and/or kV according to the patient''s size were employed. CLINICAL HISTORY: Respiratory distress, concern for aspiration, COMPARISON: 01/17/2018 abdomen and pelvis FINDINGS: Pulmonary vessels enhance in normal fashion without evidence of embolism. Thoracic aorta shows no dissection or aneurysm. Nonspecific perihilar airspace opacities could reflect mild edema. Vague nodularity in both lungs [id number] and greatest in the left lower lobe is compatible with bronchopneumonia. No lung mass or dense consolidation identified. There is no significant pleural effusion. There is no significant pericardial effusion. No mediastinal or hilar adenopathy is present. Low-density mass in the left breast measuring up to 41 mm may represent postoperative seroma or hematoma but stable since 2018. IMPRESSION: Bronchopneumonia, greatest in the left lower lobe. No evidence of pulmonary embolism. Left breast mass, favor postoperative fluid collection. Reviewed, Interpreted and Dictated by Jennifer Jacinto MD Transcribed by Jessica Che Authenticated and [facility]
--- NOTE | 2025-03-11 11:29 | [facility].EDCP ---
Discharge Plan Disposition Patient Disposition: Admitted Condition: Fair Clinical Impressions Clinical Impression: Bronchopneumonia, Sepsis Discharge ED Provider: Emmanuel Rincon HPI <ABBIE Fitzpatrick - Last Filed: 03/11/25 15:19> General Chief Complaint: Shortness of Breath/Dyspnea Stated Complaint: aspiration Pneu Time Seen by Provider: 03/11/25 11:15 Mode of Arrival: EMS Source of Information: EMS and Medical Record Limitations: No Limitations History of Present Illness HPI narrative: 74-year-old female presents emergency department via EMS from skilled nursing facility initially called out for seizure , patient had what appears to be witnessed seizure-like activity according to EMS and nurse staff, however on the scene patient was unresponsive, hypoxic, thus was placed on nonrebreather 15 mL of oxygen, not on any submental oxygen therapy at baseline, with some improvement of her symptomatology, patient was given DuoNeb and route per EMS. EMS states this started this morning, concern for aspiration , patient did have some vomiting per skilled nursing staff upon my examination GCS of 13, will answer to her name, somewhat hard to ascertain, due to respiratory distress, thus review of systems was not obtained due to patient state and condition. However upon medical record review patient has past medical history consistent with carotid artery stenosis, thrombocytopenia, T2DM, hyperlipidemia, hypertension, venous insufficiency, anxiety/depression. Initial triage vitals notable for tachypnea, hypotension, triggering sepsis criteria. Unknown history of substance use/abuse. Please note that above description of symptoms, in this electronic medical record under categorization of recalled from ER triage doctor by RN are reflective of an initial nursing assessment, however, is not reflective of my full history and physical exam that was personally taken and clarified. Consequentially, this preceding description of symptoms, which may include the patient's categorized chief complaint in the EMR, do not reflect my personal clinical impression, and the ultimate description of history of present illness and patient stated complaints should be deferred to this section of the note. Unless stated otherwise or congruent with this section of the note, additional signs, symptoms, or incongruence should be interpreted as inaccurate with my clinical impression. complaint: other Related Data Home Medications ?Medication ?Instructions ?Recorded ?Confirmed diclofenac sodium 50 mg 50 mg PO TID PRN 07/12/23 12/18/24 tablet,delayed release Held on 10/26/23. Instructions: Doctor's Order aspirin 81 mg tablet,delayed 81 mg PO DAILY 10/26/23 12/18/24 release divalproex 500 mg tablet,delayed 500 mg PO BID 04/18/24 12/18/24 release lisinopril 20 mg tablet 20 mg PO BID 04/18/24 12/18/24 loratadine 10 mg tablet 10 mg PO DAILY 04/18/24 12/18/24 docusate sodium 100 mg tablet 100 mg PO ONCE 06/13/24 12/18/24 (Stool Softener) torsemide 20 mg tablet 20 mg PO DAILY 06/13/24 12/18/24 trazodone 50 mg tablet 50 mg PO DAILY 06/13/24 12/18/24 pen needle, diabetic, safety 30 #100 ea 12/11/24 12/18/24 gauge x 3/16 (AutoShield Duo Pen Needle) rosuvastatin 40 mg tablet 40 mg PO DAILY 12/11/24 12/18/24 acetaminophen 500 mg capsule 500 mg PO Q6H PRN 12/18/24 12/18/24 latanoprost 0.005 % eye drops 1 drp ophthalmic (eye) DAILY 12/18/24 12/18/24 polyethylene glycol 3350 17 17 g PO DAILY 12/18/24 12/18/24 gram/dose oral powder (Miralax) Previous Rx's ?Medication ?Instructions ?Recorded carvedilol 25 mg tablet (Coreg) 25 mg PO BID #60 tabs 04/18/24 Allergies Allergy/AdvReac Type Severity Reaction Status Date / Time No Known Allergies Allergy Verified 12/18/24 11:31 FORMERLY [facility], [facility]–1983 <ABBIE Fitzpatrick - Last Filed: 03/11/25 15:19> FORMERLY [facility], [facility] Disclaimer: The information contained in this section may have been updated after the patient was seen, as this information can be updated by other users. Medical History Stenosis of carotid artery T2DM (type 2 diabetes mellitus) T1DM (type 1 diabetes mellitus) Renal disease HTN (hypertension), benign HLD (hyperlipidemia) Depression Cancer Atherosclerotic heart disease Anxiety Surgical History Hx of tonsillectomy H/O breast biopsy History of lumpectomy of left breast Family History Other Cancer Diabetes Social History Smoking Status: Unknown if ever smoked alcohol intake: never substance use type: denies use current occupational status: retired Travel in the last 8 weeks?: None number of children: 0 Other Medical History Have you received the Flu Vaccine for this season: No Have you received the Pneumonia Vaccine: Yes <ABBIE Fitzpatrick - Last Filed: 03/11/25 15:19> ROS Obtained: Yes All systems reviewed & no additional complaints except as documented Physical Exam <ABBIE Fitzpatrick - Last Filed: 03/11/25 15:19> General General appearance: alert Comment: Obvious respiratory distress, pale, ill-appearing female Head Head exam: atraumatic and normocephalic Eye Eye exam: Present PERRL and EOMI ENT ENT exam: Present mucous membranes moist Neck Neck exam: Present normal inspection Chest Chest inspection: Present normal inspection and symmetric chest wall rise Respiratory Respiratory exam: Present respiratory distress, wheezes and other (Audible wheezes/crackles that are moderate to severe in nature, noted bilaterally. Tachypnea, and use of intercostal muscles.); Absent normal lung sounds bilaterally Cardiovascular Cardiovascular exam: Present regular rate and normal rhythm Abdominal Exam Abdominal exam: Present soft; Absent tenderness, guarding, rebound or rigidity Extremities Exam Extremities exam: Present normal inspection Neurological Exam Neurological exam: Present alert and other (Answers question about place and knows name, GCS 13, obeys commands, opens eyes spontaneously); Absent oriented X3 Psychiatric Psychiatric exam: Present normal affect Skin Skin exam: Present warm and dry HEART Score <ABBIE Fitzpatrick - Last Filed: 03/11/25 15:19> HEART Score HEART Score assessment performed?: No Critical Care <ABBIE Fitzpatrick - Last Filed: 03/11/25 15:19> Critical Care Time Critical Care Time: No Medical Decision Making <ABBIE Fitzpatrick - Last Filed: 03/11/25 15:19> Medical Records Medical records reviewed: Yes I reviewed the patient's medical records. [place] Inquiry Pt receiving controlled substance: No [place] was queried for this patient: No Vital Signs Vital Signs: 03/11/25 11:06 03/11/25 11:20 03/11/25 11:45 Temperature 97.6 F Temperature Source Axillary Pulse Rate [Right Radial] 66 Respiratory Rate 36 H Blood Pressure [Right Arm] 84/38 L Blood Pressure Mean [Right Arm] 53 02 Sat by Pulse Oximetry 86 L 96 96 Oxygen Delivery Method Non-Rebreather Vapotherm Vapotherm Oxygen Flow Rate (LPM) 15 35 35 Fraction of Inspired Oxygen 70 70 03/11/25 13:05 03/11/25 15:14 Temperature Temperature Source Pulse Rate [Right Radial] Respiratory Rate Blood Pressure [Right Arm] Blood Pressure Mean [Right Arm] 02 Sat by Pulse Oximetry 95 95 Oxygen Delivery Method Vapotherm Vapotherm Oxygen Flow Rate (LPM) 35 30 Fraction of Inspired Oxygen 75 65 Lab Data Lab results reviewed: Yes I reviewed the patient's lab results. Labs: Lab Results 03/11/25 11:30: WBC 5.3, RBC 3.56 L, Hgb 11.4 L, Hct 34.1 L, MCV 95.8, MCH 32.0 H, MCHC 33.4, RDW 13.4, Plt Count 92 L, MPV 9.2, Neut % (Auto) 63.9, Lymph % (Auto) 21.1, [place] % (Auto) 13.3 H, Eos % (Auto) 0.9, Baso % (Auto) 0.2, Neut # (Auto) 3.4, Lymph # (Auto) 1.1, [place] # (Auto) 0.7, Eos # (Auto) 0.1, Baso # (Auto) 0.0, PT 12.3, INR 1.12 H, VBG pH 7.32, VBG pCO2 71.5 H, VBG pO2 40.4 H, VBG HCO3 35.8 H, VBG Total CO2 38.0 H, VBG O2 Saturation 71.0 H, VBG Base Excess 9.6 H, VBG Lactic Acid 2.7 H, Sodium 131 L, Potassium 3.9, Chloride 98, Carbon Dioxide 32 H, Anion Gap 4.9 L, BUN 28 H, Creatinine 1.30 H, Estimated Creat Clear 52, Estimated GFR 40 L, Est GFR ( Amer) 48 L, Glucose 112 H, Lactate 1.6, Calcium 9.1, Magnesium 2.0, Total Bilirubin 0.6, AST 31, ALT 14, Alkaline Phosphatase 70, Troponin I 0.01, C-Reactive Protein 6.1 H, NT-Pro-B Natriuret Pep 2520 H, Total Protein 6.0 L, Albumin 2.8 L, Globulin 3.2, Albumin/Globulin Ratio 0.9 L, Lipase 45, Procalcitonin 0.121 03/11/25 11:30 03/11/25 11:30 Response Orders (Tests/Meds): ED MEDICATIONS Generic Name Dose Route Start Last Admin Trade Name Freq PRN Reason Stop Dose Admin Sodium Chloride 10 ml 03/11/25 12:35 03/11/25 12:39 Sodium Chloride 0.9% 10ml Syr (Rad Only) IV 04/10/25 12:34 10 ml NEEDED PRN Administration Maintain IV Site Sodium Chloride 3 ml 03/11/25 14:27 Sodium Chloride 3% 15ml Neb IH 04/10/25 14:26 ONCE PRN INDUCE SPUTUM COLLECTION Discontinued Medications Generic Name Dose Route Start Last Admin Trade Name Freq PRN Reason Stop Dose Admin Piperacillin Sod/Tazobactam 50 mls @ 100 mls/hr 03/11/25 11:18 03/11/25 12:54 Sod 3.375 gm/ Sodium Chloride IV 03/11/25 11:47 Infused ONCE ONE Infusion Sodium Chloride 1,000 mls @ 500 mls/hr 03/11/25 11:24 03/11/25 12:35 Sod Chlor 0.9% 1000ml Bag IV 03/11/25 13:23 Not Given .Q2H ONE Vancomycin/PEG/NADA/Lysine/Water 1.5 gm in 300 mls @ 150 mls/hr 03/11/25 11:30 03/11/25 12:44 Vancomycin 1.5gm/300ml (Peg) Premix IV 03/11/25 13:29 150 mls/hr ONCE ONE Administration Iopamidol 70 ml 03/11/25 12:35 03/11/25 12:39 Iopamidol-370 (76%);100ml Bottle IV 03/11/25 12:36 70 ml ONCE ONE Administration Miscellaneous 1 each 03/11/25 11:30 Vancomycin Consult Request NOTAPPLIC 04/10/25 11:[address] [facility] Ondansetron HCl 4 mg 03/11/25 13:45 03/11/25 14:11 Ondansetron 4mg/2ml Vial IV 03/11/25 13:46 4 mg ONCE ONE Administration Sodium Chloride 50 ml 03/11/25 12:35 03/11/25 12:39 0.9 % Sodium Chloride 50 Ml Vial IV 03/11/25 12:36 50 ml ONCE ONE Administration ORDERS Category Date Time Status CT abdomen pelvis w con Stat Cat Scan 03/11/25 11:[address] angio chest PE protocol Stat Cat Scan 03/11/25 11:[address] head/brain wo con Stat Cat Scan 03/11/25 11:25 Completed XR chest portable Stat Exams 03/11/25 11:17 Completed CRP [C-Reactive Protein] Stat Lab 03/11/25 11:30 Completed Complete Blood Count Auto Diff Stat Lab 03/11/25 11:30 Completed Comprehensive Metabolic Panel Stat Lab 03/11/25 11:30 Completed Full Resp Panel w/COVID ([facility]) Routine Lab 03/11/25 14:28 Ordered Lactic Acid Stat Lab 03/11/25 11:30 Completed Lipase Stat Lab 03/11/25 11:30 Completed Magnesium Stat Lab 03/11/25 11:30 Completed NT Pro Brain Natriuretic Pep. Stat Lab 03/11/25 11:30 Completed PT INR [Prothrombin Time INR] Stat Lab 03/11/25 11:30 Completed Procalcitonin Urgent Lab 03/11/25 11:30 Completed Troponin I Q3H Lab 03/11/25 14:30 Ordered Troponin I Q3H Lab 03/11/25 17:30 Ordered Troponin I Stat Lab 03/11/25 11:30 Completed Urinalysis and Microscopic Stat Lab 03/11/25 11:17 Ordered Blood Culture Stat Micro 03/11/25 11:35 Received Sputum Culture & Gram Stain Stat Micro 03/11/25 14:27 Ordered VBG [Venous Blood Gas] Stat RT 03/11/25 11:30 Completed MDM Narrative Medical Decision Narrative: 74-year-old female presents the emergency department for respiratory distress,/aspiration pneumonia, see HPI for detailed past medical history, differential diagnose include but not limited to sepsis, aspiration pneumonia, pneumonitis, pleural effusion, new onset/CHF/exacerbation, acute UTI, COPD exacerbation, acid-base disturbance, pulmonary edema, cardiac arrhythmia, electrolyte disturbance, pneumonia among others. I discussed this patient case with the attending physician Will obtain basic laboratory studies, EKG, CT ab pelvis with contrast, CTA chest with and without contrast PE protocol, CTA, chest x-ray, lactic acid level, magnesium level proBNP, PT/INR, troponin, lipase, urinalysis, blood cultures, patient initially meeting sepsis criteria upon arrival, thus will give 500 mL liter IV sodium chloride dose, will hold off on 30 mg/kg sepsis bolus dosing due to concern for fluid overload based on lung auscultation/exam, will obtain VBG, and will give IV 3.375 Zosyn and pharmacy to dose vancomycin for sepsis. Patient on 15 L of nonrebreather, will call respiratory therapy for potential deep suction and other therapies, patient is documented DNR/DNI. Nursing staff had conversation with family via the phone and patient has once again documented DNR/DNI would not want any mechanical ventilation or resuscitation efforts. After examination of the patient I have low concern for seizure activity/disorder, patient has no history of seizure disorder, on divalproex for anxiety according to medication review/chart review, patient is not postictal appearing, more likely thought to be hypoxic event due to underlying pneumonia/aspiration. CBC is notable for hemoglobin and hematocrit 11.4/34.1 respectively thrombocytopenia 92 which the patient has a history of, but is decreased outside of baseline. CMP is noted for mild hyponatremia 131, BUN is elevated 28, creatinine is over 1.3, no lactic acidosis VBG is notable for 7.32 pH, pCO2 is elevated 71.5, bicarb elevated at 35.8, venous lactic acid level is elevated at 2.7. Coags unremarkable proBNP is elevated at 2520, thus will cancel fluid bolus with concern for fluid overload in the setting of respiratory failure. Initial troponin is 0.01. Respiratory therapist placed patient on high flow nasal cannula 35 and 70% after some deep suction, patient did have some improvement in her oxygen saturation with these interventions initially I had a long discussion about goals of care with patient and family at the bedside at approximately 12 PM, patient's power of estate attorney/next of kin brother and sister at the bedside (Colby Valencia and Lisa Coon) patient is now more responsive, answering questions appropriately, states that she is DNR/DNI would not like any intervention to include mechanical ventilation and ablation. Brother and sister at the bedside are in agreement would like to pursue treatment of most likely pneumonia with IV antibiotics and high flow oxygen. Also of note, brother tells me that skilled nursing facility was concerned about the patient for what sounds like pneumonia first noticed on 03/07/2025, patient had what sounds like productive cough, and dyspnea. I was notified by nursing staff at approximately 1:45 PM that the patient complaining of some nausea, felt like she had the urge to throw up , thus will give 4 mg IV Zofran for nausea. I reviewed the patient's chest x-ray along the corresponding radiologic report, no acute abnormality. I reviewed the patient's CT and pelvis with contrast along with corresponding radiologic report, significant rectosigmoid fecal impaction cholelithiasis The patient's CTA chest with and without contrast PE protocol, along the corresponding radiologic report, bronchopneumonia greatest in the left lower lobe no evidence pulmonary embolism, left breast mass favored postoperative fluid collection. I reviewed the patient CT head without contrast on the corresponding radiologic report, atrophy no acute intracranial process. I discussed this patient's case with the hospital physician Dr. Mai at approximately 2:26 PM, he is in agreement with the current admission plan/treatment plan for pneumonia. I discussed need for admission with the patient and family at the bedside patient and family are in agreement with current treatment plan/admission plan. <Emmanuel Rincon MD - Last Filed: 03/11/25 15:23> Vital Signs Vital Signs: 03/11/25 11:06 03/11/25 11:20 03/11/25 11:45 Temperature 97.6 F Temperature Source Axillary Pulse Rate [Right Radial] 66 Respiratory Rate 36 H Blood Pressure [Right Arm] 84/38 L Blood Pressure Mean [Right Arm] 53 02 Sat by Pulse Oximetry 86 L 96 96 Oxygen Delivery Method Non-Rebreather Vapotherm Vapotherm Oxygen Flow Rate (LPM) 15 35 35 Fraction of Inspired Oxygen 70 70 03/11/25 13:05 03/11/25 15:14 Temperature Temperature Source Pulse Rate [Right Radial] Respiratory Rate Blood Pressure [Right Arm] Blood Pressure Mean [Right Arm] 02 Sat by Pulse Oximetry 95 95 Oxygen Delivery Method Vapotherm Vapotherm Oxygen Flow Rate (LPM) 35 30 Fraction of Inspired Oxygen 75 65 Lab Data Labs: Lab Results 03/11/25 11:30: WBC 5.3, RBC 3.56 L, Hgb 11.4 L, Hct 34.1 L, MCV 95.8, MCH 32.0 H, MCHC 33.4, RDW 13.4, Plt Count 92 L, MPV 9.2, Neut % (Auto) 63.9, Lymph % (Auto) 21.1, [place] % (Auto) 13.3 H, Eos % (Auto) 0.9, Baso % (Auto) 0.2, Neut # (Auto) 3.4, Lymph # (Auto) 1.1, [place] # (Auto) 0.7, Eos # (Auto) 0.1, Baso # (Auto) 0.0, PT 12.3, INR 1.12 H, VBG pH 7.32, VBG pCO2 71.5 H, VBG pO2 40.4 H, VBG HCO3 35.8 H, VBG Total CO2 38.0 H, VBG O2 Saturation 71.0 H, VBG Base Excess 9.6 H, VBG Lactic Acid 2.7 H, Sodium 131 L, Potassium 3.9, Chloride 98, Carbon Dioxide 32 H, Anion Gap 4.9 L, BUN 28 H, Creatinine 1.30 H, Estimated Creat Clear 52, Estimated GFR 40 L, Est GFR ( Amer) 48 L, Glucose 112 H, Lactate 1.6, Calcium 9.1, Magnesium 2.0, Total Bilirubin 0.6, AST 31, ALT 14, Alkaline Phosphatase 70, Troponin I 0.01, C-Reactive Protein 6.1 H, NT-Pro-B Natriuret Pep 2520 H, Total Protein 6.0 L, Albumin 2.8 L, Globulin 3.2, Albumin/Globulin Ratio 0.9 L, Lipase 45, Procalcitonin 0.121 Response Orders (Tests/Meds): ED MEDICATIONS Generic Name Dose Route Start Last Admin Trade Name Freq PRN Reason Stop Dose Admin Sodium Chloride 10 ml 03/11/25 12:35 03/11/25 12:39 Sodium Chloride 0.9% 10ml Syr (Rad Only) IV 04/10/25 12:34 10 ml NEEDED PRN Administration Maintain IV Site Sodium Chloride 3 ml 03/11/25 14:27 Sodium Chloride 3% 15ml Neb IH 04/10/25 14:26 ONCE PRN INDUCE SPUTUM COLLECTION Discontinued Medications Generic Name Dose Route Start Last Admin Trade Name Freq PRN Reason Stop Dose Admin Piperacillin Sod/Tazobactam 50 mls @ 100 mls/hr 03/11/25 11:18 03/11/25 12:54 Sod 3.375 gm/ Sodium Chloride IV 03/11/25 11:47 Infused ONCE ONE Infusion Sodium Chloride 1,000 mls @ 500 mls/hr 03/11/25 11:24 03/11/25 12:35 Sod Chlor 0.9% 1000ml Bag IV 03/11/25 13:23 Not Given .Q2H ONE Vancomycin/PEG/NADA/Lysine/Water 1.5 gm in 300 mls @ 150 mls/hr 03/11/25 11:30 03/11/25 12:44 Vancomycin 1.5gm/300ml (Peg) Premix IV 03/11/25 13:29 150 mls/hr ONCE ONE Administration Iopamidol 70 ml 03/11/25 12:35 03/11/25 12:39 Iopamidol-370 (76%);100ml Bottle IV 03/11/25 12:36 70 ml ONCE ONE Administration Miscellaneous 1 each 03/11/25 11:30 Vancomycin Consult Request NOTAPPLIC 04/10/25 11:[address] [facility] Ondansetron HCl 4 mg 03/11/25 13:45 03/11/25 14:11 Ondansetron 4mg/2ml Vial IV 03/11/25 13:46 4 mg ONCE ONE Administration Sodium Chloride 50 ml 03/11/25 12:35 03/11/25 12:39 0.9 % Sodium Chloride 50 Ml Vial IV 03/11/25 12:36 50 ml ONCE ONE Administration ORDERS Category Date Time Status CT abdomen pelvis w con Stat Cat Scan 03/11/25 11:[address] angio chest PE protocol Stat Cat Scan 03/11/25 11:[address] head/brain wo con Stat Cat Scan 03/11/25 11:25 Completed XR chest portable Stat Exams 03/11/25 11:17 Completed CRP [C-Reactive Protein] Stat Lab 03/11/25 11:30 Completed Complete Blood Count Auto Diff Stat Lab 03/11/25 11:30 Completed Comprehensive Metabolic Panel Stat Lab 03/11/25 11:30 Completed Full Resp Panel w/COVID ([facility]) Routine Lab 03/11/25 14:28 Ordered Lactic Acid Stat Lab 03/11/25 11:30 Completed Lipase Stat Lab 03/11/25 11:30 Completed Magnesium Stat Lab 03/11/25 11:30 Completed NT Pro Brain Natriuretic Pep. Stat Lab 03/11/25 11:30 Completed PT INR [Prothrombin Time INR] Stat Lab 03/11/25 11:30 Completed Procalcitonin Urgent Lab 03/11/25 11:30 Completed Troponin I Q3H Lab 03/11/25 14:30 Ordered Troponin I Q3H Lab 03/11/25 17:30 Ordered Troponin I Stat Lab 03/11/25 11:30 Completed Urinalysis and Microscopic Stat Lab 03/11/25 11:17 Ordered Blood Culture Stat Micro 03/11/25 11:35 Received Sputum Culture & Gram Stain Stat Micro 03/11/25 14:27 Ordered VBG [Venous Blood Gas] Stat RT 03/11/25 11:30 Completed ECG Data Tracing #1: ECG Narrative: Independently interpreted by me rate is 65, rhythm is regular, axis is normal, right bundle branch block, no ST elevation in anatomical contiguous leads, QTc 459 MDM Narrative Medical Decision Narrative: 74-year-old female presents the emergency department for respiratory distress,/aspiration pneumonia, see HPI for detailed past medical history, differential diagnose include but not limited to sepsis, aspiration pneumonia, pneumonitis, pleural effusion, new onset/CHF/exacerbation, acute UTI, COPD exacerbation, acid-base disturbance, pulmonary edema, cardiac arrhythmia, electrolyte disturbance, pneumonia among others. I discussed this patient case with the attending physician Will obtain basic laboratory studies, EKG, CT ab pelvis with contrast, CTA chest with and without contrast PE protocol, CTA, chest x-ray, lactic acid level, magnesium level proBNP, PT/INR, troponin, lipase, urinalysis, blood cultures, patient initially meeting sepsis criteria upon arrival, thus will give 500 mL liter IV sodium chloride dose, will hold off on 30 mg/kg sepsis bolus dosing due to concern for fluid overload based on lung auscultation/exam, will obtain VBG, and will give IV 3.375 Zosyn and pharmacy to dose vancomycin for sepsis. Patient on 15 L of nonrebreather, will call respiratory therapy for potential deep suction and other therapies, patient is documented DNR/DNI. Nursing staff had conversation with family via the phone and patient has once again documented DNR/DNI would not want any mechanical ventilation or resuscitation efforts. After examination of the patient I have low concern for seizure activity/disorder, patient has no history of seizure disorder, on divalproex for anxiety according to medication review/chart review, patient is not postictal appearing, more likely thought to be hypoxic event due to underlying pneumonia/aspiration. CBC is notable for hemoglobin and hematocrit 11.4/34.1 respectively thrombocytopenia 92 which the patient has a history of, but is decreased outside of baseline. CMP is noted for mild hyponatremia 131, BUN is elevated 28, creatinine is over 1.3, no lactic acidosis VBG is notable for 7.32 pH, pCO2 is elevated 71.5, bicarb elevated at 35.8, venous lactic acid level is elevated at 2.7. Coags unremarkable proBNP is elevated at 2520, thus will cancel fluid bolus with concern for fluid overload in the setting of respiratory failure. Initial troponin is 0.01. Respiratory therapist placed patient on high flow nasal cannula 35 and 70% after some deep suction, patient did have some improvement in her oxygen saturation with these interventions initially I had a long discussion about goals of care with patient and family at the bedside at approximately 12 PM, patient's power of estate attorney/next of kin brother and sister at the bedside (Colby Valencia and Lisa Coon) patient is now more responsive, answering questions appropriately, states that she is DNR/DNI would not like any intervention to include mechanical ventilation and ablation. Brother and sister at the bedside are in agreement would like to pursue treatment of most likely pneumonia with IV antibiotics and high flow oxygen. Also of note, brother tells me that skilled nursing facility was concerned about the patient for what sounds like pneumonia first noticed on 03/07/2025, patient had what sounds like productive cough, and dyspnea. I was notified by nursing staff at approximately 1:45 PM that the patient complaining of some nausea, felt like she had the urge to throw up , thus will give 4 mg IV Zofran for nausea. I reviewed the patient's chest x-ray along the corresponding radiologic report, no acute abnormality. I reviewed the patient's CT and pelvis with contrast along with corresponding radiologic report, significant rectosigmoid fecal impaction cholelithiasis The patient's CTA chest with and without contrast PE protocol, along the corresponding radiologic report, bronchopneumonia greatest in the left lower lobe no evidence pulmonary embolism, left breast mass favored postoperative fluid collection. I reviewed the patient CT head without contrast on the corresponding radiologic report, atrophy no acute intracranial process. I discussed this patient's case with the hospital physician Dr. Mai at approximately 2:26 PM, he is in agreement with the current admission plan/treatment plan for pneumonia. I discussed need for admission with the patient and family at the bedside patient and family are in agreement with current treatment plan/admission plan. Emmanuel Rincon MD: I was consulted by the RC, and we discussed the complexity of the problems being addressed. I approved the treatment and management plan for this patient's care in the emergency department, thus performing a substantive portion of the medical decision making.
--- OUTSIDE RECORDS SUMMARY | 2025-03-11 11:33 | XMS_ITS | Clinical Summary ---
Author Organization Healthcare Address [address] [place] [address] Care Team Providers Care Cash Posting Representative Name Role Phone Apolonia Carbajal Harsha CHOWDARY Primary Care Provider [phone] Family History Medical History Relation Name Comments Acute Leukemia Father Acute Leukemia Mother Diabetes Mother Relation Name Status Comments Father Mother Social History Tobacco Use Types Packs/Day Years Used Date Smoking Tobacco: Never Alcohol Use Standard Drinks/Week Comments No 0 (1 standard drink = 0.6 oz pur e alcohol) Comments Unknown Sex and Gender Information Value Date Recorded Sex Assigned at Not on file Legal Sex Female 8:19 PM EDT Gender Identity Not on file Sexual Orientation Not on file Last Filed Vital Signs Vital Sign Reading Time Taken Comments Blood Pressure - - Pulse - - Temperature - - Respiratory Rate - - Oxygen Saturation - - Inhaled Oxygen Concentration - - Weight 85.5 kg (188 lb 6.1 oz) 08/04/2016 9:02 A M EDT Height - - Body Mass Index - - Plan of Treatment Health Maintenance Due Date Last Done Comments [facility]-Bone Density Scan 1950 [facility]-Depression Screening 1950 [facility]-Diabetes: Hemoglobin A1C 1950 [facility]-Hepatitis C Screening 1950 [facility]-Medicare Annual Wellness (AWV) 1950 [facility]-/Child/Adol SDOH Screenings 1950 Diabetes: Dental Exam 1960 [facility]- SDOH Screenings 1968 [facility]-Adult SDOH Screenings 1968 CT Colonography 1995 Colonoscopy 1995 FIT-DNA 1995 FIT 1995 FOBT 1995 Sigmoidoscopy 1995 [facility]-Colorectal Cancer Screening 1995 [facility]-Zoster Vaccines (1 of 2) 2000 [facility]-Breast Cancer Screening 08/27/2017 08/28/2015, 1 05/07/2013 LAN-NDVSL-14 Vaccine (1 - 2024- season) 2024 [facility]-Influenza Vaccine (#1) 12/31/202402/06, 01/25/2023, 01/24/2014, Additional history exists [facility]-RSV Vaccine: 60+ Years or (1 - 1-dose 75+ series) 2025 [facility]-DTaP,Tdap,and Td Vaccines (2 - Td or Tdap) 09/11/2025 09/12/2015 [facility]-Pneumococcal Vaccine: 50+ Years Completed 03/29/2023, 04/03/2016, 02/02/2011 HPV Vaccines Aged Out No longer eligi ble based on patient's age to complete this topic [facility]-HIB Vaccines Aged Out No longer e ligible based on patient's age to complete this topic [facility]-Hepatitis A Vaccines Aged Out No longer eligible based on patient's age to complete this topic [facility]-IPV Vaccines Aged Out No longer e ligible based on patient's age to complete this topic [facility]-Rotavirus Vaccines Aged Out No lo nger eligible based on patient's age to complete this topic Procedures Procedure Name Priority Date/Time Associated Diagnosis Comments MAMMOGRAPHY BREAST DIAGNOSTIC TOMOSYNTHESIS BILATERAL Routine 08/28/2015 12:00 PM EDT from Last 3 Months or Most Recently Relevant to Health Maintenance Results * Mammography Breast Diagnostic Tomosynthesis Bilateral (08/28/2015 12:00 PM EDT) Anatomical Region Laterality Modality Breast Bilateral Mammography Impressions 08/28/2015 11:44 AM EDT BI-RADS Assessment Category 2: Benign finding. RECOMMENDATION: Bilateral diagnostic mammogram in 1 year. Clinical management recommended. COMMUNICATION: The results and recommendations were discussed with the patient and a printed lay language version of the imaging report was given to the patient at the time of the visit. The mammogram was read with the assistance of CAD and tomosynthesis. Read By: Amie Wiggins M.D. Signed By: Amie Wiggins M.D. on 08/28/2015 at 11:44:13 AM Page 2 of 2 Read By: AMIE WIGGINS M.D. Signed By: AMIE WIGGINS M.D. on 08/28/2015 at 11:44:14 Narrative 08/28/2015 11:44 AM EDT REQUESTING PHYSICIAN: PARVEEN EDWARDS REASON FOR EXAMINATION/PROCEDURE: u/s bilateral abnormality on mamm EXAMINATION / PROCEDURE: DIAG MAMMO BI-LAT W/ CAD Aug 28 2015 09:12 [facility] Aug 28 2015:12 US R BREAST-AXILLA IF PERF LTD Aug 28 2015:09 US L BREAST-AXILLA IF PERF LTD Aug 28 2015 11:09 HISTORY: Patient is 65 years old and is seen for a diagnostic evaluation; prior history of breast cancer (no new issue). The patient has a history of l eft breast lumpectomy in 2010 - malignant - invasive moderately differentiated mammary carcino. The patient has a history of invasive ductal left breast carcinoma in 2010. The patient has the following family history of breast cancer: materna l aunt, breast cancer, specified type unknown. COMPARISON: The present examination has been compared to prior imaging studies performed at [facility] 04/09[facility]2011, 04/14/2011, 02/17/2012, 08/17/2012, 03/01/2013 and 03/07/2014, a nd at an outside location on 01/29/2009, 02/06/2009, 02/09/2010, 02/18/2011, 03/03/2011 and 03/10/2011. MAMMOGRAM TECHNIQUE: The following mammographic views were obtained: bilateral craniocaudal; bilateral mediolateral oblique; and bilatera l tomosynthesis images were obtained. Computer assisted detection was used in the interpretation of this study. ULTRASOUND TECHNIQUE: High-resolution real-time ultrasound scanning was performed. MAMMOGRAM FINDINGS: The breast tissue is heterogeneously dense, which may obscure detection of small masses. Finding 1: There are a changes consistent with scarring from lumpectomy and radiation therapy in the left breast at 10 o'clock located 5 centimeters from the nipple. This s urgical site is slightly larger than on prior studies. Ultrasound was performed to further evaluate. Finding 2: There is a stable focal asymmetry in the right breast at 11 o'clock located 11 centimeters from the nipple. Ultrasound was perfor med to further evaluate. Finding 3: There is a stable oval mass with circumscribed margins in the right breast at 11 o'clock located 10 centimeters from the nipple. Ultrasound was performed to further evaluate. The findings are confirmed with tomosynthesis. ULTRASOUND FINDINGS: Finding 1: A focused ultrasound was performed in the left breast in the area of the palpable concern from 9 o'clock to 10 o'clock 5 cm from the nipple using a radial and anti-radial approach. Ultras ound demonstrates an oval avascular fluid collection with circumscribed margins measuring 47 x 39 x 46 mm, parallel to the skin in the left breast at 10 o'clock located 5 centimeters from the nipple. Internal echotexture is hypoechoic. This a mauro is most consistent with a seroma. Finding 2: A focused ultrasound was performed in the right breast at 11 o'clock 11 cm from the nipple using a radial and anti-radial approach. Ultrasound demonstrates an avascular dense breast tissue in th e right breast at 11 o'clock located 11 centimeters from the nipple. Internal echotexture is hypoechoic. No suspicious cystic or solid lesion was identified in the area of interest. This area is stable compared to prior mammograms, and has a correlate with prior MRI that had benign characteristics. Finding 3: A focused ultrasound was performed in the right breast at 11 o'clock 10 cm from the nipple using a radial and anti-radial approach. Ultrasound demonstrates an oval avascula r mass with circumscribed margins measuring 10 millimeters, parallel to the skin in the right breast at 11 o'clock located 10 centimeters from the nipple. Internal echotexture is hypoechoic. Similar to prior MRI April 2011 and had benign c haracteristics. IMPRESSION: BI-RADS Assessment Category 2: Benign finding. RECOMMENDATION: Bilateral diagnostic mammogram in 1 year. Clinical management recommended. COMMUNICATION: The results and recommendations were discussed with e patient and a printed lay language version of the imaging report was given to the patient at the time of the visit. The mammogram was read with the assistance of CAD and tomosynthesis. Read By: AMIE WIGGINS M.D. Signed By: AMIE WIGGINS M.D. on 08/28/2015 at 11:44:14 Verified by: AMIE WIGGINS M.D. on Aug 28 2015 11:44A Transcribed by: [facility] Aug 28 2015 11:44A Dictated by: AMIE WIGGINS M.D. on Aug 28 2015 11:44A Patient Name:Bea Escobar : 1950 Age: 65 Gender: femaleDate of Service: 08/28/2015 eferrtacos Phy:Parveen Edwards M.D.Account: [id number] Parveen Edwards M.D. General Surgery [address] [place], [place] [id number] FINAL REPORT PROCEDURE: Tomosynthesis Diagnostic Bilateral - bilateral , Diagnostic Mammogram with CAD - bilateral , Right Breast Ultrasound limited and Axilla - right and Left Breast Ultrasound limited and Axilla - left HISTORY: Patient is 65 years old and is seen for a diagnostic evaluation; prior history of breast cancer (no new issue). The patient has a history of left breast lumpectomy in 2010 - malignant - invasive moderately differentiated mammary carcino. The patient has a history of invasive ductal left breast carcinoma in 2010. The patient has the following family history of breast cancer: maternal aunt, breast cancer, specified type unknown. COMPARISON: The present examination has been compared to prior imaging studies performed at [facility] on 04/09/2011, 04/14/2011, 02/17/2012, 08/17/2012, 03/01/2013 and 03/07/2014, and at an outside location on 01/29/2009, 02/06/2009, 02/09/2010, 02/18/2011, 03/03/2011 and 03/10/2011. MAMMOGRAM TECHNIQUE: The following mammographic views were obtained: bilateral craniocaudal; bilateral mediolateral oblique; and bilateral tomosynthesis images were obtained. Computer assisted detection was used in the interpretation of this study. ULTRASOUND TECHNIQUE: High-resolution real-time ultrasound scanning was performed. MAMMOGRAM FINDINGS: The breast tissue is heterogeneously dense, which may obscure detection of small masses. Finding 1: There are a changes consistent with scarring from lumpectomy and radiation therapy in the left breast at 10 o'clock located 5 centimeters from the nipple. This surgical site is slightly larger than on prior studies. Ultrasound was performed to further evaluate. Finding 2: There is a stable focal asymmetry in the right breast at 11 o'clock located 11 centimeters from the nipple. Ultrasound was performed to further evaluate. Page 1 of 2 Patient Name:Bea Escobar : 1950 Age: 65 Gender: femaleDate of Service: 08/28/2015 eferring Phy:Parveen Edwards M.D.Account: [id number] Finding 3: There is a stable oval mass with circumscribed margins in the right breast at 11 o'clock located 10 centimeters from the nipple. Ultrasound was performed to further evaluate. The findings are confirmed with tomosynthesis. ULTRASOUND FINDINGS: Finding 1: A focused ultrasound was performed in the left breast in the area of the palpable concern from 9 o'clock to 10 o'clock 5 cm from the nipple using a radial and anti-radial approach. Ultrasound demonstrates an oval avascular fluid collection with circumscribed margins measuring 47 x 39 x 46 mm, parallel to the skin in the left breast at 10 o'clock located 5 centimeters from the nipple. Internal echotexture is hypoechoic. This area is most consistent with a seroma. Finding 2: A focused ultrasound was performed in the right breast at 11 o'clock 11 cm from the nipple using a radial and anti-radial approach. Ultrasound demonstrates an avascular dense breast tissue in the right breast at 11 o'clock located 11 centimeters from the nipple. Internal echotexture is hypoechoic. No suspicious cystic or solid lesion was identified in the area of interest. This area is stable compared to prior mammograms, and has a correlate with prior MRI that had benign characteristics. Finding 3: A focused ultrasound was performed in the right breast at 11 o'clock 10 cm from the nipple using a radial and anti-radial approach. Ultrasound demonstrates an oval avascular mass with circumscribed margins measuring 10 millimeters, parallel to the skin in the right breast at 11 o'clock located 10 centimeters from the nipple. Internal echotexture is hypoechoic. Similar to prior MRI April 2011 and had benign characteristics. Procedure Note Amie Wiggins - 09/07/2020 REQUESTING PHYSICIAN: PARVEEN EDWARDS REASON FOR EXAMINATION/PROCEDURE: u/s bilateral abnormality on mamm EXAMINATION / PROCEDURE: DIAG MAMMO BI-LAT W/ CAD Aug 28 2015 - 09:12 [facility] DIAGNO[facility] Aug 28 2015 - 09:12 US R BREAST-AXILLA IF PERF LTD Aug 28 2015 11:09 US L BREAST-AXILLA IF PERF LTD Aug 28 2015 - 11:09 HISTORY: Patient is 65 years old and is seen for a diagnostic evaluation; prior history of breast cancer (no new issue). The patient has a history of l eft breast lumpectomy in 2010 - malignant - invasive moderately differentiated mammary carcino. The patient has a history of invasive ductal left breast carcinoma in 2010. The patient has the following family history of breast cancer: materna l aunt, breast cancer, specified type unknown. COMPARISON: The present examination has been compared to prior imaging studies performed at [facility] on 04/09/2011, 04/14/2011, 02/17/2012, 08/17/2012, 03/01/2013 and 03/07/2014, a nd at an outside location on 01/29/2009, 02/06/2009, 02/09/2010, 02/18/2011, 03/03/2011 and 03/10/2011. MAMMOGRAM TECHNIQUE: The following mammographic views were obtained: bilateral craniocaudal; bilateral mediolateral oblique; and bilatera l tomosynthesis images were obtained. Computer assisted detection was used in the interpretation of this study. ULTRASOUND TECHNIQUE: High-resolution real-time ultrasound scanning was performed. MAMMOGRAM FINDINGS: The breast tissue is heterogeneously dense, which may obscure detection of small masses. Finding 1: There are a changes consistent with scarring from lumpectomy and radiation therapy in the left breast at 10 o'clock located 5 centimeters from the nipple. This s urgical site is slightly larger than on prior studies. Ultrasound was performed to further evaluate. Finding 2: There is a stable focal asymmetry in the right breast at 11 o'clock located 11 centimeters from the nipple. Ultrasound was perfor med to further evaluate. Finding 3: There is a stable oval mass with circumscribed margins in the right breast at 11 o'clock located 10 centimeters from the nipple. Ultrasound was performed to further evaluate. The findings are confirmed with tomosynthesis. ULTRASOUND FINDINGS: Finding 1: A focused ultrasound was performed in the left breast in the area of the palpable concern from 9 o'clock to 10 o'clock 5 cm from the nipple using a radial and anti-radial approach. Ultras ound demonstrates an oval avascular fluid collection with circumscribed margins measuring 47 x 39 x 46 mm, parallel to the skin in the left breast at 10 o'clock located 5 centimeters from the nipple. Internal echotexture ishypoechoic. This a mauro is most consistent with a seroma. Finding 2: A focused ultrasound was performed in the right breast at 11 o'clock 11 cm from the nipple using a radial and anti-radial approach. Ultrasound demonstrates an avascular dense breast tissue in th e right breast at 11 o'clock located 11 centimeters from the nipple. Internal echotexture is hypoechoic. No suspicious cystic or solid lesion was identified in the area of interest. This area is stable compared to prior mammograms, and has a correlate with prior MRI that had benign characteristics. Finding 3: A focused ultrasound was performed in the right breast at 11 o'clock 10 cm from the nipple using a radial and anti-radial approach. Ultrasound demonstrates an oval avascula r mass with circumscribed margins measuring 10 millimeters, parallel to the skin in the right breast at 11 o'clock located 10 centimeters from the nipple. Internal echotexture is hypoechoic. Similar to prior MRI April 2011 and had benign c haracteristics. IMPRESSION: BI-RADS Assessment Category 2: Benign finding. RECOMMENDATION: Bilateral diagnostic mammogram in 1 year. Clinical management recommended. COMMUNICATION: The results and recommendations were discussed with th e patient and a printed lay language version of the imaging report was given to the patient at the time of the visit. The mammogram was read with the assistance of CAD and tomosynthesis. Read By: AMIE WIGGINS M.D. Signed By: AMIE WIGGINS M.D. on 08/28/2015 at 11:44:14 Verified by: AMIE WIGGINS M.D. on Aug 28 2015 11:44A Transcribed by: [facility] Aug 28 2015 11:44A Dictated by: AMIE WIGGINS M.D. on Aug 28 2015 11:44A Patient Name:Bea Escobar : 1950 Age: 65 Gender: femaleDate of Service:08/28/2015 eferring Phy:Parveen Edwards M.D.Account: [id number] Parveen Edwards M.D. General Surgery [address] [place] [address] FINAL REPORT PROCEDURE: Tomosynthesis Diagnostic Bilateral - bilateral , Diagnostic Mammogram withCAD - bilateral , Right Breast Ultrasound limited and Axilla - right and Left Breast Ultrasound limited and Axilla- left HISTORY: Patient is 65 years old and is seen for a diagnostic evaluation; priorhistory of breast cancer (no new issue). The patient has a history of left breast lumpectomy in 2010 - malignant -invasive moderately differentiated mammary carcino. The patient has a history of invasive ductal left breastcarcinoma in 2010. The patient has the following family history of breast cancer: maternal aunt, breast cancer, specifiedtype unknown. COMPARISON: The present examination has [facility], [facility]2012, 08/17/2012, 03/01/2013 and 03/07/2014,and at an outside location on 01/29/2009, 02/06/2009, 02/09/2010, 02/18/2011, 03/03/2011 and03/10/2011. MAMMOGRAM TECHNIQUE: The following mammographic views were obtained: bilateral craniocaudal;bilateral mediolateral oblique; and bilateral tomosynthesis images were obtained. Computer assisted detection was usedin the interpretation of this study. ULTRASOUND TECHNIQUE: High-resolution real-time ultrasound scanning was performed. MAMMOGRAM FINDINGS: The breast tissue is heterogeneously dense, which may obscure detection ofsmall masses. Finding 1: There are a changes consistent with scarring from lumpectomyand radiation therapy in the left breast at 10 o'clock located 5 centimeters from the nipple. This surgical site isslightly larger than on prior studies. Ultrasound was performed to further evaluate. Finding 2: There is a stable focal asymmetry in the right breast at 11o'clock located 11 centimeters from the nipple. Ultrasound was performed to further evaluate. Page 1 of 2 Patient Name:Bea Escobar : 1950 Age: 65 Gender: femaleDate of Service:08/28/2015 efmathew Phy:Parveen Edwards M.D.Account: [id number] Finding 3: There is a stable oval mass with circumscribed margins in theright breast at 11 o'clock located 10 centimeters from the nipple. Ultrasound was performed to furtherevaluate. The findings are confirmed with tomosynthesis. ULTRASOUND FINDINGS: Finding 1: A focused ultrasound was performed in the left breast in thearea of the palpable concern from 9 o'clock to 10 o'clock 5 cm from the nipple using a radial and anti-radialapproach. Ultrasound demonstrates an oval avascular fluid collection with circumscribed margins measuring 47 x 39 x 46 mm,parallel to the skin in the left breast at 10 o'clock located 5 centimeters from the nipple. Internal echotexture ishypoechoic. This area is most consistent with a seroma. Finding 2: A focused ultrasound was performed in the right breast at 11o'clock 11 cm from the nipple using a radial and anti-radial approach. Ultrasound demonstrates an avascular densebreast tissue in the right breast at 11 o'clock located 11 centimeters from the nipple. Internal echotexture ishypoechoic. No suspicious cystic or solid lesion was identified in the area of interest. This area is stable compared to priormammograms, and has a correlate with prior MRI that had benign characteristics. Finding 3: A focused ultrasound was performed in the right breast at 11o'clock 10 cm from the nipple using a radial and anti-radial approach. Ultrasound demonstrates an oval avascular masswith circumscribed margins measuring 10 millimeters, parallel to the skin in the right breast at 11 o'clocklocated 10 centimeters from the nipple. Internal echotexture is hypoechoic. Similar to prior MRI April 2011 and hadbenign characteristics. IMPRESSION: BI-RADS Assessment Category 2: Benign finding. RECOMMENDATION: Bilateral diagnostic mammogram in 1 year. Clinical management recommended. COMMUNICATION: The results and recommendations were discussed with the patient and aprinted lay language version of the imaging report was given to the patient at the time of the visit. The mammogramwas read with the assistance of CAD and tomosynthesis. Read By: Amie Wiggins M.D. Signed By: Amie Wiggins M.D. on 08/28/2015 at 11:44:13 AM Page 2 of 2 Read By: AMIE WIGGINS M.D. Signed By: AMIE WIGGINS M.D. on 08/28/2015 at 11:44:14 us Historical Provider IMG BI PROCEDURES Final Resu lt from Last 3 Months or Most Recently Relevant to Health Maintenance Insurance MEDICARE [place]ICA[place] Care Teams Cash Posting Representative Relationship Specialty Start Date End Date Apolonia Carbajal APRN [address] [place] [address] PCP - General 09/12/20
--- OUTSIDE RECORDS SUMMARY | 2025-03-11 11:35 | XMS_ITS | Clinical Summary ---
Author Organization [facility] Address [address] [place] [address] Care Team Providers Care Traffic Analyst Name Role Phone Denver Mcarthur MD Primary Care Provider Allergies No known active allergies Medications Acetaminophen Extra Strength 500 MG tablet 5 Active aspirin 81 MG EC tablet TAKE ONE (1) TABLET BY MOUTH EVERY DAY 4 Active carvedilol (COREG) 25 MG tablet Take 1 tablet by mouth 2 (Two) Times a Day With Meals. 5 Active divalproex (DEPAKOTE) [address] tablet Take 1 tablet by mouth 2 (Two) Times a Day. Active Stool Softener 100 MG capsule 5 Active ipratropium-albut genie (DUO-NEB) 0.5-2.5 mg/3 ml nebulizer 5 Active Jardiance 10 MG tablet tablet Take 1 tablet by mouth Daily. 5 Active lisinopril (PRINIVIL,ZESTRIL ) 20 MG tablet Take 1 tablet by mouth Daily. Active loratadine (CLARITIN) 10 MG tablet 5 Active pantoprazole (PROTONIX) 40 MG EC tablet Take 1 tablet by mouth Daily. Active polyethylene glycol (MIRALAX) 17 GM/SCOOP powder 5 Active potassium chloride 10 MEQ CR tablet Take 1 tablet by mouth Daily. Active risperiDONE (risperDAL) 2 MG tablet Take 1 tablet by mouth Daily. Active rOPINIRole (REQUIP) 0.5 MG tablet 5 Active torsemide (DEMADEX) 20 MG tablet Take 1 tablet by mouth 2 (Two) Times a Day. 5 Active traZODone (DESYREL) 50 MG tablet Take 1 tablet every day by oral route at bedtime for 90 days. Active BD AutoShield Duo 30G X 5 MM misc 5 Active Insulin Degludec FlexTouch 100 UNIT/ML solution pen-injector 5 Active Insulin Aspart (NovoLOG) 100 UNIT/ML injection Inject 30 Units under the skin into the appropriate area as directed. Active rosuvastatin (CRESTOR) 40 MG tabletIndications :Hyperlipidemia LDL goal <55 Take 1 tablet by mouth Daily. 90 tablet 3 5 Active RSVPreF3 Vac Recomb Adjuvanted (AREXVY) 120 MCG/0.5ML reconstituted suspension injection Inject 0.5 mL into the appropriate muscle as directed by prescriber 1 (One) Time. Active famotidine (PEPCID) 10 MG tablet Take 2 tablets by mouth 2 (Two) Times a Day. Active Glucagon 1 MG/0.2ML solution auto-injector Inject under the skin into the appropriate area as directed. Active latanoprost (XALATAN) 0.005 % ophthalmic solution Apply 1 drop to eye(s) as directed by provider Every Night. Active Tirzepatide (Mounjaro) 5 MG/0.5ML solution auto-injector Inject under the skin into the appropriate area as directed. Active polyethyl glycol-propyl glycol (SYSTANE) 0.4-0.3 % solution ophthalmic solution (artificial tears) Administer 1 drop to both eyes Every 1 (One) Hour As Needed. Active timolol (TIMOPTIC-XR) 0.5 % ophthalmic gel-forming Apply 1 drop to eye(s) as directed by provider Daily. Active Active Problems Problem Noted Date Diagnosed Date Hyperlipidemia LDL goal <55 06/27/2024 Assessment & Plan (12/28/2024 11:46 AM EDT): Needs lipid panel Continue current Rx Orders: Hepatic Function Panel; Future High Sensitivity CRP; Future Lipoprotein A (LPA); Future Lipid Panel; Future Assessment & Plan (09/27/2024 11:18 AM EDT): Not within goal Orders: rosuvastatin (CRESTOR) 40 MG tablet; Take 1 tablet by mouth Daily. Assessment & Plan (06/27/2024 11:09 AM EST): Orders: Hepatic Function Panel; Future High Sensitivity CRP; Future Lipoprotein A (LPA); Future Lipid Panel; Future Stage 3 chronic kidney disease 06/26/2024 Assessment & Plan (12/28/2024 11:46 AM EDT): eGFR 42.1, K 4.0 Stable Continue Lisinopril and Jardiance Add Kerendia BMP 4 weeks Orders: Comprehensive Metabolic Panel; Future Microalbumin / Creatinine Urine Ratio - Urine, Clean Catch; Future Assessment & Plan (09/27/2024 11:18 AM EDT): Needs UACR Orders: Microalbumin / Creatinine Urine Ratio - Urine, Clean Catch; Future Duplex Renal Artery - Bilateral Complete CAR; Future Assessment & Plan (06/27/2024 11:09 AM EST): Orders: Basic Metabolic Panel; Future Microalbumin / Creatinine Urine Ratio - Urine, Clean Catch; Future Nonrheumatic mitral valve regurgitation 06/26/19 Assessment & Plan (12/28/2024 11:46 AM EDT): Stable Assessment & Plan (09/27/2024 11:18 AM EDT): Stable 2 D Echo if symptomatic Assessment & Plan (06/27/2024 11:09 AM EST): 2 D echo if symptomatic Type 2 diabetes mellitus wit h hyperglycemia, with long-term current use of insulin 06/26/2024 Assessment & Plan (06/27/2024 11:09 AM EST): Continue current insulin regimen plus Jardiance. Primary hypertension 06/26/2024 Assessment & Plan (12/28/2024 11:46 AM EDT): Hypertension is stable and controlled Continue current treatment regimen. Blood pressure will be reassessed in 6 months. Assessment & Plan (09/27/2024 11:18 AM EDT): Hypertension is stable and controlled Continue current treatment regimen. Blood pressure will be reassessed in 6 months . Assessment & Plan (06/27/2024 11:09 AM EST): Stable Continue lisinopril andf Coreg at current doses BP log. Encounters Date Type Department Care Team Description 12/28/2024 10:45 AM EDT Office Visit [facility] [address] [place] [address] Michael Gómez MD Stage 3a chronic kidney disease (Primary Dx); Primary hypertension; Nonrheumatic mitral valve regurgitation; Hyperlipidemia LDL goal <55; Type 2 diabetes mellitus with other circulatory complication, with long-term current use of insulin 12/28/2024 Telephone [facility] [address] [place] [address] G[address]mez MD DR. ERES - PAPERWORK REQUEST 12/28/2024 Travel from Last 3 Months Social History Tobacco Use Types Packs/Day Years Used Date Smoking Tobacco: Never Smokeless Tobacco: Never Tobacco Cessation:Counseling Given: Not Answered Alcohol Use Standard Drinks/Week Comments Never 0 (1 standard drink = 0.6 oz pur e alcohol) Comments Unknown Sex and Gender Information Value Date Recorded Sex Assigned at Not on file Legal Sex Female 9:24 AM EST Gender Identity Not on file Sexual Orientation Not on file Last Filed Vital Signs Vital Sign Reading Time Taken Comments Blood Pressure 113/60 12/28/2024 10:52 AM EDT Pulse 88 12/28/2024 10:52 AM EDT Temperature - - Respiratory Rate - - Oxygen Saturation - - Inhaled Oxygen Concentration - - Weight 92.5 kg (204 lb) 12/28/2024 10:52 AM EDT Height 160 cm (5' 3 ) 12/28/2024 10:52 AM EDT Body Mass Index 36.14 12/28/2024 10:52 AM EDT Plan of Treatment Health Maintenance Due Date Last Done Comments DXA SCAN 1950 COVID-19 Vaccine (#1) 1955 DIABETIC EYE EXAM 1960 DIABETIC FOOT EXAM 1960 COLON CANCER SCREENING 5 YEA R SIGMOIDOSCOPY [address] COLONOGRAPHY 1995 FECAL OCCULT BLOOD TEST 1995 FIT Testing (1 year) 1995 ZOSTER VACCINE (1 of 2) 2000 MAMMOGRAM 08/27/2017 08/28/2015, 03/07/2014 ANNUAL WELLNESS VISIT 06/13/2024 HEPATITIS C SCREENING 06/13/2024 INFLUENZA VACCINE 11/30/2024 02/07/2024, , 01/24/2014, Additional history exists HEMOGLOBIN A1C 03/30/2025 09/27/2024, 06/03, 02/24/2024 LIPID PANEL 06/27/2025 06/27/2024 TDAP/TD VACCINES (2 - Td or Tdap) 09/11/2025 016 URINE MICROALBUMIN-CREATININ E RATIO (uACR) 09/27/2025 09/27/2024 COLOGUARD 03/15/2026 03/15/2023 COLORECTAL CANCER SCREENING 03/15/2026 Pneumococcal Vaccine 50+ Completed 025, 03/29/2023, 04/03/2016, Additional history exists Procedures Procedure Name Priority Date/Time Associated Diagnosis Comments MICROALBUMIN / CREATININE URINE RATIO Routine 09/27/2024 11:37 AM EDT Stage 3 chronic kidney disease, unspecified whether stage 3a or 3b CKD HEMOGLOBIN A1C Routine 09/27/2024 11:37 AM EDT Type 2 diabetes mellitus with other circulatory complication, with long-term current use of insulin LIPID PANEL Routine 06/27/2024 11:27 AM EST Hyperlipidemia LDL goal <55 from Last 3 Months or Most Recently Relevant to Health Maintenance Results * (ABNORMAL) Microalbumin / Creatinine Urine Ratio - Urine, Clean Catch (09/27/2024 11:37 AM EDT) Microalbumin/C reatinine Ratio 104.7(H) 0.0 - 29.0 mg/g 09/28/2024 12:25 AM EDT [facility] Creatinine, Urine 17.2 mg/dL 09/28/2024 12:25 AM EDT [facility] Microalbumin, Urine 1.8 mg/dL 09/28/2024 12:25 AM EDT [facility] Urine Urine specimen obtained by clean catch procedure / Unknown Collection / Unknown 09/27/2024 11:37 AM EDT 09/27/2024 11:37 AM EDT us Michael Gómez MD URINE ORDERABLES Final Result Performing Organization Address [facility] Co de Phone Number [facility]
[address] [place] [address], * (ABNORMAL) Hemoglobin A1c (09/27/2024 11:37 AM EDT) Hemoglobin A1C 7.60(H) 4.80 - 5.60 % 09/27/2024 11:13 PM EDT [facility] Blood Venipuncture / Unknown 09/27/2024 11:37 AM EDT 09/27/2024 11:37 AM EDT Narrative [facility] - 09/27/2024 11:13 PM EDT Hemoglobin A1C Ranges: Increased Risk for Diabetes 5.7% to 6.4% Diabetes >= 6.5% Diabetic Goal < 7.0% us Michael Gómez MD LAB BLOOD ORDERABLES Final Resul t [facility]
[address] [place] [address], * (ABNORMAL) Lipid Panel (06/27/2024 11:27 AM EST) Total Cholesterol 202(H) 0 - 200 mg/dL 06/28/2024 12:33 AM EST [facility] Triglycerides 136 0 - 150 mg/dL 06/28/2024 12:33 AM EST [facility] HDL Cholesterol 46 40 - 60 mg/dL 06/28/2024 12:33 AM EST [facility] LDL Cholesterol 132(H) 0 - 100 mg/dL 06/28/2024 12:33 AM [facility] VLDL Cholesterol 24 5 - 40 mg/dL 06/28/2024 12:33 AM EST [facility] LDL/HDL Ratio 2.80 06/28/2024 12:33 AM [facility] Blood Venipuncture / Unknown 06/27/2024 11:27 AM EST 06/27/2024 11:27 AM EST Narrative [facility] - 06/28/2024 12:33 AM EST Cholesterol Reference Ranges (U.S. Department of Health and Human Services ATP III Classifications) Desirable <200 mg/dL Borderline High 200-239 mg/dL High Risk >240 mg/dL Triglyceride Reference Ranges (U.S. Department of Health and Human Services ATP III Classifications) Normal <150 mg/dL Borderline High 150-199 mg/dL High 200-499 mg/dL Very High >500 mg/dL HDL Reference Ranges (U.S. Department of Health and Human Services ATP III Classifications) Low <40 mg/dl (major risk factor for CHD) High >60 mg/dl ('negative' risk factor for CHD) LDL Reference Ranges (U.S. Department of Health and Human Services ATP III Classifications) Optimal <100 mg/dL Near Optimal 100-129 mg/dL Borderline High 130-159 mg/dL High 160-189 mg/dL Very High >189 mg/dL LDL is calculated using the NIH LDL-C calculation. Michael Gómez MD LAB BLOOD ORDERABLES Final Resul t [facility]
[address] [place] [address], from Last 3 Months or Most Recently Relevant to Health Maintenance Insurance MEDICARE A & B [place]ICAID [place] Care Teams Traffic Analyst Relationship Specialty Start Date End Date Denver Mcarthur MD [facility] [place] [address] [place] [address] PCP - General Internal Medicine 06/27/24
--- OUTSIDE RECORDS SUMMARY | 2025-03-11 11:35 | XMS_ITS | Data Portability ---
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 -The potential side effects of medications were discussed. -Counseling was done on care goals and ways to prevent future hospitalizatio ns. -Further treatment per orders listed below. [email or web address] Not available 02/16/2024 09:25:17 Plan of Treatment Reminders Order Date Submit Date Provider Last Modified By Organization Details Last Modified Time Details Appointments None recorded. Lab glucose, fingerstick , blood 2023 [facility], [address] [place] [address], [place], [address], 10:05:52 BMP, serum or plasma 2023 [email or web address], [address], [address], [place], [address], 5 15:21:02 TSH + free T4, serum 2023 [facility], [address], [address], [place], [address], 4 12:09:08 HbA1c (hemoglobin A1c), blood 2023 024 [facility], [address], [address], [place], [address], 12:09:10 CMP, serum or plasma 2023 024 [facility], [address], [address], [place], [address], 12:09:09 CBC w/ auto diff 2023 024 [facility], [address], [address], [place], [address], 12:09:08 lipid panel, serum 2023 024 [facility], [address], [address], [place], [address], 12:09:09 venipunctur e 2023 024 [email or web address], [address], [address], [place], [address], 4 13:39:09 CMP, serum or plasma 2023 024 [facility], [address], [address], [place], [address], 4 04:07:06 urinalysis, dipstick 2023 024 [facility], [address] [place] [address], [address], 13:44:19 magnesium, serum or plasma 2023 024 [facility], [address], [place], [address], 4 04:07:06 CBC w/ auto diff 2023 024 [facility], [address], [place], [address], 4 04:07:04 Referral physical therapist referral - needs unaboots bilateral legs 2023 [facility], [address] [place], [address], 5 14:48:17 Procedures None recorded. Surgeries None recorded. Imaging XR, ankle, 3 or more view 2023 [facility], [address] [place] [address] , [place], [address], 5 14:13:58 XR, lumbosacral spine, 2 or 3 view 2023 [facility] (X-Ray), [address] [facility] [address], [place], [address], 4 02:39:15 XR, thoracic spine, 2 view 2023 [facility] (X-Ray), [address] [facility] [address], [place], [address], 4 05:23:27 electrocard iogram 2023 [facility], [address] [place] [address], [address], 4 14:52:09 Medication Orders mupirocin 2 % topical ointment 2023 [facility], [facility] [place], [address], 4 14:36:06 furosemide 20 mg tablet 2023 [facility], [address] [place] [address], [address], 4 14:35:56 cyanocobala min (vit B-12) 1,000 mcg/mL injection solution 2023 024 [facility], [address] [facility], [place], [address], 4 13:56:27 Patient TargetsNo targets recorded. Patient InstructionsNo instructions recorded. Reason for Referral Physical Therapist Referral for Abnormal gait due to muscle weakness needs unaboots bilateral legs Referring Physician: Karen Zarate, Family Medicine, Encounter Date: 02/16/2024 Results Created Date Observation Date Name Description Value Unit Range Abnormal Flag Note LastModifiedBy Organization Detail LastModifiedTime 09/15/19 24 09/15/2023 micro album in/cr eatin ine, mass ratio , urine Microalbumin 10 mg/L Not Available [address], [address], 09/15/2023 11:02:39 09/15/19 24 09/15/2023 micro album in/cr eatin ine, mass ratio , urine Creatinine 50 mg/dL Not Available [address], [address], 09/15/2023 11:02:39 09/15/19 24 09/15/2023 micro album in/cr eatin ine, mass ratio , urine Ratio < 30 mg/g Not Available [address], [address], 09/15/2023 11:02:39 09/23/19 24 09/24/2023 HEMAT OPATH CONSU LTATI ON, SMEAR WBC 5.3 x10e3 /uL 3.4-10 .8 Not Available [facility] ([facility]) [address] [facility], [place], [address], 09/28/2023 18:07:11 09/23/19 24 09/24/2023 HEMAT OPATH CONSU LTATI ON, SMEAR RBC 4.40 x10e6 /uL 3.77-5 .28 Not Available [facility] ([facility]) [address] [facility], [place], [address], 09/28/2023 18:07:11 09/23/19 24 09/24/2023 HEMAT OPATH CONSU LTATI ON, SMEAR hemoglobin 13.2 g/dL 11.1-1 5.9 Not Available [facility] ([facility]) [address] [facility], [place], [address], 09/28/2023 18:07:11 09/23/19 24 09/24/2023 HEMAT OPATH CONSU LTATI ON, SMEAR hematocrit 40.6 % 34.0-4 6.6 Not Available [facility] ([facility]) [address] [facility], [place], [address], 09/28/2023 18:07:11 09/23/19 24 09/24/2023 HEMAT OPATH CONSU LTATI ON, SMEAR MCV 92 fL 79-97 Not Available [facility] ([facility]) [address] [facility], [place], [address], 09/28/2023 18:07:11 09/23/19 24 09/24/2023 HEMAT OPATH CONSU LTATI ON, SMEAR MCH 30.0 pg 26.6-3 3.0 Not Available [facility] ([facility]) [address] [facility], [place], [address], 09/28/2023 18:07:11 09/23/19 24 09/24/2023 HEMAT OPATH CONSU LTATI ON, SMEAR MCHC 32.5 g/dL 31.5-3 5.7 Not Available [facility] ([facility]) [address] [facility], [place], [address], 09/28/2023 18:07:11 09/23/19 24 09/24/2023 HEMAT OPATH CONSU LTATI ON, SMEAR RDW 13.4 % 11.7-1 5.4 Not Available [facility] ([facility]) [address] [facility], [place], [address], 09/28/2023 18:07:11 09/23/19 24 09/24/2023 HEMAT OPATH CONSU LTATI ON, SMEAR platelets 148 x10e3 /uL 150-45 0 below low normal Not Available [facility] ([facility]) [address] [facility], [place], [address], 09/28/2023 18:07:11 09/23/1909/24/2023 HEMAT OPATH CONSU LTATI ON, SMEAR neutrophils 56 % not estab. Not Available [facility] ([facility]) [address] [facility], [place], [address], 09/28/2023 18:07:11 09/23/19 24 09/24/2023 HEMAT OPATH CONSU LTATI ON, SMEAR lymphs 31 % not estab. Not Available [facility] ([facility]) [address] [facility], [place], [address], 09/28/2023 18:07:11 09/23/19 24 09/24/2023 HEMAT OPATH CONSU LTATI ON, SMEAR monocytes 10 % not estab. Not Available [facility] ([facility]) [address] [facility], [place], [address], 09/28/2023 18:07:11 09/23/19 24 09/24/2023 HEMAT OPATH CONSU LTATI ON, SMEAR eos 2 % not estab. Not Available [facility] ([facility]) [address] [facility], [place], [address], 09/28/2023 18:07:11 09/23/19 24 09/24/2023 HEMAT OPATH CONSU LTATI ON, SMEAR basos 1 % not estab. Not Available [facility] ([facility]) [address] [facility], [place], [address], 09/28/2023 18:07:11 09/23/19 24 09/24/2023 HEMAT OPATH CONSU LTATI ON, SMEAR immature cells SENIOR SUSTAINABILITY ADVISOR Not Available [facility] ([facility]) [address] [facility], [place], [address], 09/28/2023 18:07:11 09/23/19 24 09/24/2023 HEMAT OPATH CONSU LTATI ON, SMEAR neutrophils (absolute) 3.0 x10e3 /uL 1.4-7. 0 Not Available [facility] ([facility]) [address] [facility], [place], [address], 09/28/2023 18:07:11 09/23/19 24 09/24/2023 HEMAT OPATH CONSU LTATI ON, SMEAR lymphs (absolute) 1.6 x10e3 /uL 0.7-3. 1 Not Available [facility] ([facility]) [address] [facility], [place], [address], 09/28/2023 18:07:11 09/23/19 24 09/24/2023 HEMAT OPATH CONSU LTATI ON, SMEAR monocytes(ab solute) 0.5 x10e3 /uL 0.1-0. 9 Not Available [facility] ([facility]) [address] [facility], [place], [address], 09/28/2023 18:07:11 09/23/19 24 09/24/2023 HEMAT OPATH CONSU LTATI ON, SMEAR eos (absolute) 0.1 x10e3 /uL 0.0-0. 4 Not Available [facility] ([facility]) [address] [place], [address], 09/28/2023 18:07:11 09/23/19 24 09/24/2023 HEMAT OPATH CONSU LTATI ON, SMEAR baso (absolute) 0.0 x10e3 /uL 0.0-0. 2 Not Available [facility] ([facility]) [address] [facility], [place], [address], 09/28/2023 18:07:11 09/23/19 24 09/24/2023 HEMAT OPATH CONSU LTATI ON, SMEAR immature granulocytes 0 % not estab. Not Available [facility] ([facility]) [address] [facility], [place], [address], 09/28/2023 18:07:11 09/23/19 24 09/24/2023 HEMAT OPATH CONSU LTATI ON, SMEAR immature grans (abs) 0.0 x10e3 /uL 0.0-0. 1 Not Available [facility] ([facility]) [address] [facility], [place], [address], 09/28/2023 18:07:11 09/23/19 24 09/24/2023 HEMAT OPATH CONSU LTATI ON, SMEAR NRBC SENIOR SUSTAINABILITY ADVISOR Not Available [facility] ([facility]) [address] [facility], [place], [address], 09/28/2023 18:07:11 09/23/19 24 09/24/2023 HEMAT OPATH CONSU LTATI ON, SMEAR hematology comments: SENIOR SUSTAINABILITY ADVISOR Not Available [facility] ([facility]) [address] [facility], [place], [address], 09/28/2023 18:07:11 09/23/19 24 09/28/2023 HEMAT OPATH CONSU LTATI ON, SMEAR WBC Commen t Not Available [facility] ([facility]) [address] [facility], [place], [address], 09/28/2023 18:07:11 09/23/19 24 09/28/2023 HEMAT OPATH CONSU LTATI ON, SMEAR RBC Commen t Not Available [facility] ([facility]) [address] [facility], [place], [address], 09/28/2023 18:07:11 09/23/19 24 09/28/2023 HEMAT OPATH CONSU LTATI ON, SMEAR plts Commen t Throm bocyt openi a. Morph ology david l. Cause not evide nt. Not Available [facility] ([facility]) [address] [place], [address], 09/28/2023 18:07:11 09/23/19 24 09/28/2023 HEMAT OPATH CONSU LTATI ON, SMEAR comments/rec ommendations Commen t No signi fican t morph ologi c abnor malit y was detec arash on the igh t-sta ined smear . Not Available [facility] ([facility]) [address] [place], [address], 09/28/2023 18:07:11 09/23/19 24 09/28/2023 HEMAT OPATH CONSU LTATI ON, SMEAR pathologist Commen t Revie wed by: Celso Mccain MD, Patho logis t Not Available [facility] ([facility]) [address] [place], [address], 09/28/2023 18:07:11 09/23/19 24 09/24/2023 COMP. METAB OLIC PANEL (14) glucose 187 mg/dL 70-99 above high normal Not Available [facility] ([facility]) [address] [place], [address], 09/28/2023 18:07:12 09/23/19 24 09/24/2023 COMP. METAB OLIC PANEL (14) BUN 34 mg/dL 8-27 above high normal Not Available [facility] ([facility]) [address] [place], [address], 09/28/2023 18:07:12 09/23/19 24 09/24/2023 COMP. METAB OLIC PANEL (14) creatinine 1.20 mg/dL 0.57-1 .00 above high normal Not Available [facility] ([facility]) [address] [place], [address], 09/28/2023 18:07:12 09/23/19 24 09/24/2023 COMP. METAB OLIC PANEL (14) eGFR 48 mL/mi n/1.7 3 >59 below low normal Not Available [facility] ([facility]) [address], [place], [id number], 09/28/2023 18:07:12 09/23/19 24 09/24/2023 COMP. METAB OLIC PANEL (14) BUN/creatini ne ratio 28 12-28 Not Available [facility] ([facility]) [address] [place], [id number], 09/28/2023 18:07:12 09/23/19 24 09/24/2023 COMP. METAB OLIC PANEL (14) sodium 137 mmol/ L 134-14 4 Not Available [facility] ([facility]) [address], [place], [id number], 09/28/2023 18:07:12 09/23/19 24 09/24/2023 COMP. METAB OLIC PANEL (14) potassium 4.0 mmol/ L 3.5-5. 2 Not Available [facility] ([facility]) [address], [place], [id number], 09/28/2023 18:07:12 09/23/19 24 09/24/2023 COMP. METAB OLIC PANEL (14) chloride 93 mmol/ L 96-106 below low normal Not Available [facility] ([facility]) [address] [place], [id number], 09/28/2023 18:07:12 09/23/19 24 09/24/2023 COMP. METAB OLIC PANEL (14) carbon dioxide, total 27 mmol/ L 20-29 Not Available [facility] ([facility]) [address] [place], [id number], 09/28/2023 18:07:12 09/23/19 24 09/24/2023 COMP. METAB OLIC PANEL (14) calcium 9.5 mg/dL 8.7-10 .3 Not Available [facility] ([facility]) [address] [place], [id number], 09/28/2023 18:07:12 09/23/19 24 09/24/2023 COMP. METAB OLIC PANEL (14) protein, total 6.6 g/dL 6.0-8. 5 Not Available [facility] ([facility]) [address] [place], [id number], 09/28/2023 18:07:12 09/23/19 24 09/24/2023 COMP. METAB OLIC PANEL (14) albumin 4.5 g/dL 3.8-4. 8 Not Available [facility] ([facility]) [address] [place], [id number], 09/28/2023 18:07:12 09/23/19 24 09/24/2023 COMP. METAB OLIC PANEL (14) globulin, total 2.1 g/dL 1.5-4. 5 Not Available [facility] ([facility]) [address] [place], [id number], 09/28/2023 18:07:12 09/23/19 24 09/24/2023 COMP. METAB OLIC PANEL (14) A/G ratio 2.1 1.2-2. 2 Not Available [facility] ([facility]) [address] [place], [id number], 09/28/2023 18:07:12 09/23/19 24 09/24/2023 COMP. METAB OLIC PANEL (14) bilirubin, total 0.2 mg/dL 0.0-1. 2 Not Available [facility] ([facility]) [address] [place], [id number], 09/28/2023 18:07:12 09/23/19 24 09/24/2023 COMP. METAB OLIC PANEL (14) alkaline phosphatase 96 IU/L 44-121 Not Available [facility] ([facility]) [address] [facility], [place], [address], 09/28/2023 18:07:12 09/23/19 24 09/24/2023 COMP. METAB OLIC PANEL (14) AST (SGOT) 22 IU/L 0-40 Not Available [facility] ([facility]) [address] [facility], [place], [address], 09/28/2023 18:07:12 09/23/19 24 09/24/2023 COMP. METAB OLIC PANEL (14) ALT (SGPT) 19 IU/L 0-32 Not Available [facility] ([facility]) [address] [facility], [place], [address], 09/28/2023 18:07:12 10/14/19 24 10/15/2023 CBC WITH DIFFE RENTI AL/PL ATELE T WBC 5.2 x10e3 /uL 3.4-10 .8 Not Available [facility] ([facility]) [address] [facility], [place], [address], 10/15/2023 04:07:04 10/14/19 24 10/15/2023 CBC WITH DIFFE RENTI AL/PL ATELE T RBC 4.52 x10e6 /uL 3.77-5 .28 Not Available [facility] ([facility]) [address] [place], [address], 10/15/2023 04:07:04 10/14/1910/15/2023 CBC WITH DIFFE RENTI AL/PL ATELE T hemoglobin 13.9 g/dL 11.1-1 5.9 Not Available [facility] ([facility]) [address] [facility], [place], [address], 10/15/2023 04:07:04 10/14/19 24 10/15/2023 CBC WITH DIFFE RENTI AL/PL ATELE T hematocrit 41.6 % 34.0-4 6.6 Not Available [facility] ([facility]) [address] [place], [address], 10/15/2023 04:07:04 10/14/19 24 10/15/2023 CBC WITH DIFFE RENTI AL/PL ATELE T MCV 92 fL 79-97 Not Available [facility] ([facility]) [address] [place], [address], 10/15/2023 04:07:04 10/14/19 24 10/15/2023 CBC WITH DIFFE RENTI AL/PL ATELE T MCH 30.8 pg 26.6-3 3.0 Not Available [facility] ([facility]) [address] [facility], [place], [address], 10/15/2023 04:07:04 10/14/19 24 10/15/2023 CBC WITH DIFFE RENTI AL/PL ATELE T MCHC 33.4 g/dL 31.5-3 5.7 Not Available [facility] ([facility]) [address] [place], [address], 10/15/2023 04:07:04 10/14/19 24 10/15/2023 CBC WITH DIFFE RENTI AL/PL ATELE T RDW 13.2 % 11.7-1 5.4 Not Available [facility] ([facility]) [address] [place], [address], 10/15/2023 04:07:04 10/14/19 24 10/15/2023 CBC WITH DIFFE RENTI AL/PL ATELE T platelets 139 x10e3 /uL 150-45 0 below low normal Not Available [facility] ([facility]) [address] [place], [address], 10/15/2023 04:07:04 10/14/19 24 10/15/2023 CBC WITH DIFFE RENTI AL/PL ATELE T neutrophils 56 % not estab. Not Available [facility] ([facility]) [address] [place], [address], 10/15/2023 04:07:04 10/14/19 24 10/15/2023 CBC WITH DIFFE RENTI AL/PL ATELE T lymphs 32 % not estab. Not Available [facility] ([facility]) [address] [facility], [place], [address], 10/15/2023 04:07:04 10/14/19 24 10/15/2023 CBC WITH DIFFE RENTI AL/PL ATELE T monocytes 9 % not estab. Not Available [facility] ([facility]) [address] [facility], [place], [address], 10/15/2023 04:07:04 10/14/19 24 10/15/2023 CBC WITH DIFFE RENTI AL/PL ATELE T eos 2 % not estab. Not Available [facility] ([facility]) [address] [facility], [place], [address], 10/15/2023 04:07:04 10/14/19 24 10/15/2023 CBC WITH DIFFE RENTI AL/PL ATELE T basos 1 % not estab. Not Available [facility] ([facility]) [address] [place], [address], 10/15/2023 04:07:04 10/14/19 24 10/15/2023 CBC WITH DIFFE RENTI AL/PL ATELE T immature cells SENIOR SUSTAINABILITY ADVISOR Not Available [facility] ([facility]) [address] [place], [address], 10/15/2023 04:07:04 10/14/19 24 10/15/2023 CBC WITH DIFFE RENTI AL/PL ATELE T neutrophils (absolute) 2.9 x10e3 /uL 1.4-7. 0 Not Available [facility] ([facility]) [address] [place], [address], 10/15/2023 04:07:04 10/14/19 24 10/15/2023 CBC WITH DIFFE RENTI AL/PL ATELE T lymphs (absolute) 1.7 x10e3 /uL 0.7-3. 1 Not Available [facility] ([facility]) [address] [facility], [place], [address], 10/15/2023 04:07:04 10/14/19 24 10/15/2023 CBC WITH DIFFE RENTI AL/PL ATELE T monocytes(ab solute) 0.5 x10e3 /uL 0.1-0. 9 Not Available [facility] ([facility]) [address] [facility], [place], [address], 10/15/2023 04:07:04 10/14/19 24 10/15/2023 CBC WITH DIFFE RENTI AL/PL ATELE T eos (absolute) 0.1 x10e3 /uL 0.0-0. 4 Not Available [facility] ([facility]) [address] [facility], [place], [address], 10/15/2023 04:07:04 10/14/19 24 10/15/2023 CBC WITH DIFFE RENTI AL/PL ATELE T baso (absolute) 0.0 x10e3 /uL 0.0-0. 2 Not Available [facility] ([facility]) [address] [facility], [place], [address], 10/15/2023 04:07:04 10/14/19 24 10/15/2023 CBC WITH DIFFE RENTI AL/PL ATELE T immature granulocytes 0 % not estab. Not Available [facility] ([facility]) [address] [facility], [place], [address], 10/15/2023 04:07:04 10/14/19 24 10/15/2023 CBC WITH DIFFE RENTI AL/PL ATELE T immature grans (abs) 0.0 x10e3 /uL 0.0-0. 1 Not Available [facility] ([facility]) [address], [place], [id number], 10/15/2023 04:07:04 10/14/19 24 10/15/2023 CBC WITH DIFFE RENTI AL/PL ATELE T NRBC SENIOR SUSTAINABILITY ADVISOR Not Available [facility] ([facility]) [address], [place], [id number], 10/15/2023 04:07:04 10/14/19 24 10/15/2023 CBC WITH DIFFE RENTI AL/PL ATELE T hematology comments: SENIOR SUSTAINABILITY ADVISOR Not Available [facility] ([facility]) [address], [place], [id number], 10/15/2023 04:07:04 10/14/19 24 10/15/2023 COMP. METAB OLIC PANEL (14) glucose 214 mg/dL 70-99 above high normal Not Available [facility] ([facility]) [address], [place], [id number], 10/15/2023 04:07:05 10/14/19 24 10/15/2023 COMP. METAB OLIC PANEL (14) BUN 43 mg/dL 8-27 above high normal Not Available [facility] ([facility]) [address] [facility] [place], [id number], 10/15/2023 04:07:05 10/14/19 24 10/15/2023 COMP. METAB OLIC PANEL (14) creatinine 1.58 mg/dL 0.57-1 .00 above high normal Not Available [facility] ([facility]) [address] [place], [id number], 10/15/2023 04:07:05 10/14/19 24 10/15/2023 COMP. METAB OLIC PANEL (14) eGFR 34 mL/mi n/1.7 3 >59 below low normal Not Available [facility] ([facility]) [address] [place], [id number], 10/15/2023 04:07:05 10/14/19 24 10/15/2023 COMP. METAB OLIC PANEL (14) BUN/creatini ne ratio 27 12-28 Not Available [facility] ([facility]) [address], [place], [id number], 10/15/2023 04:07:05 10/14/19 24 10/15/2023 COMP. METAB OLIC PANEL (14) sodium 137 mmol/ L 134-14 4 Not Available [facility] ([facility]) [address], [place], [id number], 10/15/2023 04:07:05 10/14/19 24 10/15/2023 COMP. METAB OLIC PANEL (14) potassium 4.2 mmol/ L 3.5-5. 2 Not Available [facility] ([facility]) [address] [facility], [place], [address], 10/15/2023 04:07:05 10/14/19 24 10/15/2023 COMP. METAB OLIC PANEL (14) chloride 90 mmol/ L 96-106 below low normal Not Available [facility] ([facility]) [address] [facility], [place], [id number], 10/15/2023 04:07:05 10/14/19 24 10/15/2023 COMP. METAB OLIC PANEL (14) carbon dioxide, total 24 mmol/ L 20-29 Not Available [facility] ([facility]) [address] [facility], [place], [id number], 10/15/2023 04:07:05 10/14/19 24 10/15/2023 COMP. METAB OLIC PANEL (14) calcium 9.8 mg/dL 8.7-10 .3 Not Available [facility] ([facility]) [address] [facility], [place], [id number], 10/15/2023 04:07:05 10/14/19 24 10/15/2023 COMP. METAB OLIC PANEL (14) protein, total 6.7 g/dL 6.0-8. 5 Not Available [facility] ([facility]) [address] [facility] [place], [id number], 10/15/2023 04:07:05 10/14/19 24 10/15/2023 COMP. METAB OLIC PANEL (14) albumin 4.4 g/dL 3.8-4. 8 Not Available [facility] ([facility]) [address], [place], [id number], 10/15/2023 04:07:05 10/14/19 24 10/15/2023 COMP. METAB OLIC PANEL (14) globulin, total 2.3 g/dL 1.5-4. 5 Not Available [facility] ([facility]) [address] [facility] [place], [id number], 10/15/2023 04:07:05 10/14/19 24 10/15/2023 COMP. METAB OLIC PANEL (14) bilirubin, total 0.2 mg/dL 0.0-1. 2 Not Available [facility] ([facility]) [address] [facility], [place], [id number], 10/15/2023 04:07:05 10/14/19 24 10/15/2023 COMP. METAB OLIC PANEL (14) alkaline phosphatase 86 IU/L 44-121 Not Available [facility] ([facility]) [address] [facility], [place], [id number], 10/15/2023 04:07:05 10/14/19 24 10/15/2023 COMP. METAB OLIC PANEL (14) AST (SGOT) 21 IU/L 0-40 Not Available [facility] ([facility]) [address] [facility], [place], [id number], 10/15/2023 04:07:05 10/14/19 24 10/15/2023 COMP. METAB OLIC PANEL (14) ALT (SGPT) 18 IU/L 0-32 Not Available [facility] ([facility]) [address] [facility], [place], [address], 10/15/2023 04:07:05 10/14/19 24 10/15/2023 MAGNE SIUM magnesium 1.6 mg/dL 1.6-2. 3 Not Available [facility] ([facility]) [address] [facility], [place], [address], 10/15/2023 04:07:06 10/14/19 24 10/14/2023 urina lysis , dipst ick Leukocytes Negati ve Not Available [address], [address], 10/14/2023 13:42:30 10/14/19 24 10/14/2023 urina lysis , dipst ick Nitrite negati ve Not Available [address], [address], 10/14/2023 13:42:30 10/14/19 24 10/14/2023 urina lysis , dipst ick Urobilinogen .2 Not Available [facility] [address], [address], 10/14/2023 13:42:30 10/14/19 24 10/14/2023 urina lysis , dipst ick Protein Negati ve Not Available [address], [address], 10/14/2023 13:42:30 10/14/19 24 10/14/2023 urina lysis , dipst ick pH 5.5 Not Available [address], [address], 10/14/2023 13:42:30 10/14/19 24 10/14/2023 urina lysis , dipst ick Blood Negati ve Not Available [address], [address], 10/14/2023 13:42:30 10/14/19 24 10/14/2023 urina lysis , dipst ick Specific Stanton 1.015 Not Available [address], [address], 10/14/2023 13:42:30 10/14/19 24 10/14/2023 urina lysis , dipst ick Ketone Negati ve Not Available [address], [address], 10/14/2023 13:42:30 10/14/19 24 10/14/2023 urina lysis , dipst ick Bilirubin Negati ve Not Available [address], [address], 10/14/2023 13:42:30 10/14/19 24 10/14/2023 urina lysis , dipst ick Glucose 1000 Not Available [address], [address], 10/14/2023 13:42:30 10/14/19 24 10/14/2023 urina lysis , dipst ick Appearance Clear Not Available [address], [address], 10/14/2023 13:42:30 10/14/19 24 10/14/2023 urina lysis , dipst ick Color Yellow Not Available [address], [address], 10/14/2023 13:42:30 11/01/19 24 11/02/2023 COMP. METAB OLIC PANEL (14) glucose 296 mg/dL 70-99 above high normal Not Available [facility] ([facility]) [address] [facility] [place], [address], 11/02/2023 10:09:23 11/01/19 24 11/02/2023 COMP. METAB OLIC PANEL (14) BUN 24 mg/dL 8-27 Not Available [facility] ([facility]) [address] [facility] [place], [address], 11/02/2023 10:09:23 11/01/19 24 11/02/2023 COMP. METAB OLIC PANEL (14) creatinine 1.13 mg/dL 0.57-1 .00 above high normal Not Available [facility] ([facility]) [address] [facility] [place], [address], 11/02/2023 10:09:23 11/01/19 24 11/02/2023 COMP. METAB OLIC PANEL (14) eGFR 51 mL/mi n/1.7 3 >59 below low normal Not Available [facility] ([facility]) [address] [place], [address], 11/02/2023 10:09:23 11/01/19 24 11/02/2023 COMP. METAB OLIC PANEL (14) BUN/creatini ne ratio 21 12-28 Not Available [facility] ([facility]) [address] [place], [address], 11/02/2023 10:09:23 11/01/19 24 11/02/2023 COMP. METAB OLIC PANEL (14) sodium 137 mmol/ L 134-14 4 Not Available [facility] ([facility]) [address] [place], [address], 11/02/2023 10:09:23 11/01/19 24 11/02/2023 COMP. METAB OLIC PANEL (14) potassium 3.9 mmol/ L 3.5-5. 2 Not Available [facility] ([facility]) [address] [place], [id number], 11/02/2023 10:09:23 11/01/19 24 11/02/2023 COMP. METAB OLIC PANEL (14) chloride 95 mmol/ L 96-106 below low normal Not Available [facility] ([facility]) [address] [place], [id number], 11/02/2023 10:09:23 11/01/19 24 11/02/2023 COMP. METAB OLIC PANEL (14) carbon dioxide, total 27 mmol/ L 20-29 Not Available [facility] ([facility] [address] [place], [id number], 11/02/2023 10:09:23 11/01/19 24 11/02/2023 COMP. METAB OLIC PANEL (14) calcium 10.0 mg/dL 8.7-10 .3 Not Available [facility] ([facility]) [address] [place], [id number], 11/02/2023 10:09:23 11/01/19 24 11/02/2023 COMP. METAB OLIC PANEL (14) protein, total 7.2 g/dL 6.0-8. 5 Not Available [facility] ([facility]) [address] [facility] [place], [id number], 11/02/2023 10:09:23 11/01/19 24 11/02/2023 COMP. METAB OLIC PANEL (14) albumin 4.5 g/dL 3.8-4. 8 Not Available [facility] ([facility] [address] [place], [id number], 11/02/2023 10:09:23 11/01/19 24 11/02/2023 COMP. METAB OLIC PANEL (14) globulin, total 2.7 g/dL 1.5-4. 5 Not Available [facility] ([facility]) [address] [facility] [place], [address], 11/02/2023 10:09:23 11/01/19 24 11/02/2023 COMP. METAB OLIC PANEL (14) bilirubin, total 0.5 mg/dL 0.0-1. 2 Not Available [facility] ([facility]) [address] [facility] [place], [address], 11/02/2023 10:09:23 11/01/19 24 11/02/2023 COMP. METAB OLIC PANEL (14) alkaline phosphatase 111 IU/L 44-121 Not Available [facility] ([facility] [address] [facility] [place], [address], 11/02/2023 10:09:23 11/01/19 24 11/02/2023 COMP. METAB OLIC PANEL (14) AST (SGOT) 19 IU/L 0-40 Not Available [facility] ([facility]) [address] [facility] [place], [address], 11/02/2023 10:09:23 11/01/19 24 11/02/2023 COMP. METAB OLIC PANEL (14) ALT (SGPT) 21 IU/L 0-32 Not Available [facility] ([facility]) [address] [place], [address], 11/02/2023 10:09:23 02/07/20 24 02/08/2024 TSH+F REE T4 TSH 2.060 uIU/m L 0.450- 4.500 normal Not Available [facility] ([facility]) [address] [place], [address], 02/08/2024 12:09:08 02/07/20 24 02/08/2024 TSH+F REE T4 T4,free(dire ct) 1.18 NG/dL 0.82-1 .77 normal Not Available [facility] ([facility]) [address] [place], [address], 02/08/2024 12:09:08 02/07/20 24 02/08/2024 CBC WITH DIFFE RENTI AL/PL ATELE T WBC 7.0 x10e3 /uL 3.4-10 .8 normal Not Available [facility] ([facility]) [address] [facility], [place], [address], 02/08/2024 12:09:08 02/07/2002/08/2024 CBC WITH DIFFE RENTI AL/PL ATELE T RBC 4.69 x10e6 /uL 3.77-5 .28 normal Not Available [facility] ([facility]) [address] [facility], [place], [address], 02/08/2024 12:09:08 02/07/2002/08/2024 CBC WITH DIFFE RENTI AL/PL ATELE T hemoglobin 13.7 g/dL 11.1-1 5.9 normal Not Available [facility] ([facility]) [address] [facility], [place], [address], 02/08/2024 12:09:08 02/07/2002/08/2024 CBC WITH DIFFE RENTI AL/PL ATELE T hematocrit 43.6 % 34.0-4 6.6 normal Not Available [facility] ([facility]) [address] [facility], [place], [address], 02/08/2024 12:09:08 02/07/2002/08/2024 CBC WITH DIFFE RENTI AL/PL ATELE T MCV 93 fL 79-97 normal Not Available [facility] ([facility]) [address] [place], [address], 02/08/2024 12:09:08 02/07/2002/08/2024 CBC WITH DIFFE RENTI AL/PL ATELE T MCH 29.2 pg 26.6-3 3.0 normal Not Available [facility] ([facility]) [address] [place], [address], 02/08/2024 12:09:08 02/07/20 24 02/08/2024 CBC WITH DIFFE RENTI AL/PL ATELE T MCHC 31.4 g/dL 31.5-3 5.7 below low normal Not Available [facility] ([facility]) [address] [facility], [place], [address], 02/08/2024 12:09:08 02/07/20 24 02/08/2024 CBC WITH DIFFE RENTI AL/PL ATELE T RDW 12.6 % 11.7-1 5.4 Not Available [facility] ([facility]) [address] [facility], [place], [address], 02/08/2024 12:09:08 02/07/20 24 02/08/2024 CBC WITH DIFFE RENTI AL/PL ATELE T platelets 438 x10e3 /uL 150-45 0 normal Not Available [facility] ([facility]) [address] [facility], [place], [address], 02/08/2024 12:09:08 02/07/20 24 02/08/2024 CBC WITH DIFFE RENTI AL/PL ATELE T neutrophils 57 % not estab. normal Not Available [facility] ([facility]) [address] [facility], [place], [address], 02/08/2024 12:09:08 02/07/20 24 02/08/2024 CBC WITH DIFFE RENTI AL/PL ATELE T lymphs 32 % not estab. normal Not Available [facility] ([facility]) [address] [facility], [place], [address], 02/08/2024 12:09:08 02/07/20 24 02/08/2024 CBC WITH DIFFE RENTI AL/PL ATELE T monocytes 9 % not estab. normal Not Available [facility] ([facility]) [address] [place], [address], 02/08/2024 12:09:08 02/07/2002/08/2024 CBC WITH DIFFE RENTI AL/PL ATELE T eos 2 % not estab. normal Not Available [facility] ([facility]) [address] [facility], [place], [address], 02/08/2024 12:09:08 02/07/20 24 02/08/2024 CBC WITH DIFFE RENTI AL/PL ATELE T basos 0 % not estab. normal Not Available [facility] ([facility]) [address] [facility], [place], [address], 02/08/2024 12:09:08 02/07/2002/08/2024 CBC WITH DIFFE RENTI AL/PL ATELE T immature cells SENIOR SUSTAINABILITY ADVISOR Not Available [facility] ([facility]) [address] [facility], [place], [address], 02/08/2024 12:09:08 02/07/2002/08/2024 CBC WITH DIFFE RENTI AL/PL ATELE T neutrophils (absolute) 3.9 x10e3 /uL 1.4-7. 0 normal Not Available [facility] ([facility]) [address] [place], [address], 02/08/2024 12:09:08 02/07/20 24 02/08/2024 CBC WITH DIFFE RENTI AL/PL ATELE T lymphs (absolute) 2.3 x10e3 /uL 0.7-3. 1 normal Not Available [facility] ([facility]) [address] [place], [address], 02/08/2024 12:09:08 02/07/2002/08/2024 CBC WITH DIFFE RENTI AL/PL ATELE T monocytes(ab solute) 0.6 x10e3 /uL 0.1-0. 9 normal Not Available [facility] ([facility]) [address] [place], [address], 02/08/2024 12:09:08 02/07/20 24 02/08/2024 CBC WITH DIFFE RENTI AL/PL ATELE T eos (absolute) 0.1 x10e3 /uL 0.0-0. 4 normal Not Available [facility] ([facility]) [address] [facility], [place], [address], 02/08/2024 12:09:08 02/07/20 24 02/08/2024 CBC WITH DIFFE RENTI AL/PL ATELE T baso (absolute) 0.0 x10e3 /uL 0.0-0. 2 normal Not Available [facility] ([facility]) [address] [facility], [place], [address], 02/08/2024 12:09:08 02/07/2002/08/2024 CBC WITH DIFFE RENTI AL/PL ATELE T immature granulocytes 0 % not estab. Not Available [facility] ([facility]) [address] [facility], [place], [address], 02/08/2024 12:09:08 02/07/2002/08/2024 CBC WITH DIFFE RENTI AL/PL ATELE T immature grans (abs) 0.0 x10e3 /uL 0.0-0. 1 Not Available [facility] ([facility]) [address] [facility], [place], [address], 02/08/2024 12:09:08 02/07/20 24 02/08/2024 CBC WITH DIFFE RENTI AL/PL ATELE T NRBC SENIOR SUSTAINABILITY ADVISOR Not Available [facility] ([facility]) [address] [facility], [place], [address], 02/08/2024 12:09:08 02/07/20 24 02/08/2024 CBC WITH DIFFE RENTI AL/PL ATELE T hematology comments: SENIOR SUSTAINABILITY ADVISOR Not Available [facility] ([facility]) [address] [facility], [place], [address], 02/08/2024 12:09:08 02/07/20 24 02/08/2024 COMP. METAB OLIC PANEL (14) glucose 95 mg/dL 70-99 normal Not Available [facility] ([facility]) [address] [place], [address], 02/08/2024 12:09:09 02/07/20 24 02/08/2024 COMP. METAB OLIC PANEL (14) BUN 10 mg/dL 8-27 normal Not Available [facility] ([facility]) [address] [place], [address], 02/08/2024 12:09:09 02/07/20 24 02/08/2024 COMP. METAB OLIC PANEL (14) creatinine 0.71 mg/dL 0.57-1 .00 normal Not Available [facility] ([facility]) [address] [place], [address], 02/08/2024 12:09:09 02/07/20 24 02/08/2024 COMP. METAB OLIC PANEL (14) eGFR 90 mL/mi n/1.7 3 >59 normal Not Available [facility] ([facility]) [address] [place], [address], 02/08/2024 12:09:09 02/07/20 24 02/08/2024 COMP. METAB OLIC PANEL (14) BUN/creatini ne ratio 14 12-28 normal Not Available [facility] ([facility]) [address] [place], [address], 02/08/2024 12:09:09 02/07/20 24 02/08/2024 COMP. METAB OLIC PANEL (14) sodium 145 mmol/ L 134-14 4 above high normal Not Available [facility] ([facility]) [address] [place], [address], 02/08/2024 12:09:09 02/07/20 24 02/08/2024 COMP. METAB OLIC PANEL (14) potassium 4.7 mmol/ L 3.5-5. 2 normal Not Available [facility] ([facility]) [address] [place], [id number], 02/08/2024 12:09:09 02/07/20 24 02/08/2024 COMP. METAB OLIC PANEL (14) chloride 106 mmol/ L 96-106 normal Not Available [facility] ([facility]) [address] [place], [id number], 02/08/2024 12:09:09 02/07/20 24 02/08/2024 COMP. METAB OLIC PANEL (14) carbon dioxide, total 25 mmol/ L 20-29 normal Not Available [facility] ([facility]) [address] [place], [id number], 02/08/2024 12:09:09 02/07/20 24 02/08/2024 COMP. METAB OLIC PANEL (14) calcium 9.6 mg/dL 8.7-10 .3 normal Not Available [facility] ([facility]) [address] [place], [id number], 02/08/2024 12:09:09 02/07/20 24 02/08/2024 COMP. METAB OLIC PANEL (14) protein, total 6.8 g/dL 6.0-8. 5 normal Not Available [facility] ([facility]) [address] [place], [id number], 02/08/2024 12:09:09 02/07/20 24 02/08/2024 COMP. METAB OLIC PANEL (14) albumin 4.3 g/dL 3.8-4. 8 normal Not Available [facility] ([facility]) [address] [place], [id number], 02/08/2024 12:09:09 02/07/20 24 02/08/2024 COMP. METAB OLIC PANEL (14) globulin, total 2.5 g/dL 1.5-4. 5 Not Available [facility] ([facility]) [address] [place], [address], 02/08/2024 12:09:09 02/07/20 24 02/08/2024 COMP. METAB OLIC PANEL (14) bilirubin, total 0.4 mg/dL 0.0-1. 2 normal Not Available [facility] ([facility]) [address] [place], [address], 02/08/2024 12:09:09 02/07/20 24 02/08/2024 COMP. METAB OLIC PANEL (14) alkaline phosphatase 89 IU/L 44-121 normal Not Available [facility] ([facility]) [address] [place], [address], 02/08/2024 12:09:09 02/07/20 24 02/08/2024 COMP. METAB OLIC PANEL (14) AST (SGOT) 14 IU/L 0-40 normal Not Available [facility] ([facility]) [address] [place], [address], 02/08/2024 12:09:09 02/07/20 24 02/08/2024 COMP. METAB OLIC PANEL (14) ALT (SGPT) 12 IU/L 0-32 normal Not Available [facility] ([facility]) [address] [place], [id number], 02/08/2024 12:09:09 02/07/20 24 02/08/2024 LIPID PANEL cholesterol, total 189 mg/dL 100-19 9 normal Not Available [facility] ([facility]) [address] [place], [address], 02/08/2024 12:09:09 02/07/20 24 02/08/2024 LIPID PANEL triglyceride s 82 mg/dL 0-149 normal Not Available [facility] ([facility]) [address] [place], [id number], 02/08/2024 12:09:09 02/07/2002/08/2024 LIPID PANEL HDL cholesterol 35 mg/dL >39 below low normal Not Available [facility] ([facility]) [address] [facility], [place], [address], 02/08/2024 12:09:09 02/07/20 24 02/08/2024 LIPID PANEL VLDL cholesterol jayne 15 mg/dL 5-40 Not Available [facility] ([facility]) [address] [facility], [place], [address], 02/08/2024 12:09:09 02/07/2002/08/2024 LIPID PANEL LDL chol calc ([facility]) 139 mg/dL 0-99 above high normal Not Available [facility] ([facility]) [address] [facility], [place], [address], 02/08/2024 12:09:09 02/07/2002/08/2024 LIPID PANEL LDL calc comment: SENIOR SUSTAINABILITY ADVISOR Not Available [facility] ([facility]) [address] [facility], [place], [address], 02/08/2024 12:09:09 02/07/2002/08/2024 HEMOG LOBIN A1C hemoglobin A1C 5.8 % 4.8-5. 6 above high normal Predi abete s: 5.7 - 6.4 Diabe yodit: >6.4 Glyce henry contr ol for adult s with diabe yodit: <7.0 Not Available [facility] ([facility]) [address] [facility], [place], [address], 02/08/2024 12:09:10 02/16/2002/16/2024 glucjustin bonner se, blood Blood Glucose: mg/dl 279 Not Available [address], [address], 02/16/2024 10:04:50 02/16/2002/16/2024 gluco se, finge rstic k, blood Reference Range (60-100) abnorm al Not Available [address], [address], 02/16/2024 10:04:50 10/14/19 24 10/14/2023 elect rocar diogr am No observ ation record ed. [address], [address], 10/14/2023 15:20:44 10/14/19 24 10/14/2023 elect rocar diogr am No observ ation record ed. [address], [address], 10/17/2023 14:29:11 11/10/19 24 11/09/2023 XR, lumbo sacra l spine , 2 or 3 view No observ ation record ed. [facility] [address], [place], [address], 11/11/2023 08:30:35 11/10/19 24 11/09/2023 XR, thora cic spine , 2 view No observ ation record ed. [facility] [address], [place], [address], 11/11/2023 08:30:34 02/13/20 24 02/10/2024 XR, foot, 3 or more view No observ ation record ed. [facility] [address] [place], [address], 02/13/2024 10:33:24 Result Notes None recorded. Problems Name Problem SNOMED Code Status Onset Date Resolution Date Notes Provider Name and Address Organization Details Recorded Time Type 2 diabetes mellitus 76451554 Active Not Available [facility] 18:31:28 Hypertens maya disorder 14520657 Active Not Available [facility] 02/09/202 4 18:31:28 Acid reflux 604998767 Active Not Available [facility] 4 18:31:29 Schizophr enia 53171741 Active Not Available [facility] 4 18:31:28 Bipolar disorder 87718252 Active Not Available [facility] 4 18:31:28 Malignant neoplasm of breast 235058391 Active states she is in remission Not Available [facility] 4 18:31:28 Hyperchol esterolem ia 13978717 Active Not Available [facility] 4 18:31:28 [place] 006132464 Active Not Available [facility] 4 18:31:28 Problem Notes Documentation Provider Name and Address Organization Details Recorded Time Hospital History And Physical (h&p) : [place] History Physical - Adult REPORT #: [id number] REPORT STATUS: Signed DATE: 11/12/23 TIME: 142 PATIENT: BEA SIMMONS UNIT #: [id number] ROOM/BED: [address] AGE: 73 SEX: F ATTEND: William Santana MD ADM AUTHOR: William Santana MD * ALL edits or amendments must be made on the electronic/computer document * History of Present Illness Date of Service: 11/12/23 Chief complaint: I FELL AGAIN HPI: 81-year-old female with PVD awaiting surgery in [place] December 02, diabetes, hypertension, DJD of spine, oa hips and knees, depression, tardive dyskinesia, previous breast cancer with left lumpectomy and was brought in by EMS after another fall. She is been seen by EMS 8 times this week for falls at home. This time they brought her in to be evaluated. The patient states she was recently started on Lasix for lower extremity edema. This has made her dehydrated in the past and caused her to fall which she has been doing again. Today she was seated when she fell out of her chair. She hit her left hip arm and head. She had no loss of consciousness. There was no trauma and she had no when pushed her or caused her to fall. She denies any neck pain or low back pain. She has not been eating or drinking well just not felt well recently. She denies any head trauma or change in her vision. No chest pain tightness or palpitations. Occasional nausea but no emesis no constipation or diarrhea. No rashes no bleeding. No new focal muscular neurologic deficits. Really just progressive decline with recurrent falls difficulty getting around. She was trying to get out of her lift chair today specifically when she fell. Medications: Home Medications: Medication Dose/Rte/Freq Days Qty Entered Last Max Daily Dose Reviewed CARVEDILOL (COREG) 12.5 MG PO BID 11/12/23 11/12/23 Strength: 12.5 MG TABLET 1400 1407 DIVALPROEX SODIUM 500 MG PO BID 11/12/23 11/12/23 (DEPAKOTE ER) 1401 1407 Strength: 250 MG TAB [GLYXAMBI] 11/12/23 11/12/23 Strength: 1402 1407 traZODone HCL (DESYREL) 50 MG PO HS 11/12/23 11/12/23 Strength: 50 MG TAB 1403 1407 PANTOPRAZOLE SOD 40 MG PO DAILY 11/12/23 11/12/23 SESQUIHYDRATE 1403 1407 (PROTONIX) Strength: 40 MG TABLET Potassium Chloride 10 MEQ PO DAILY 11/12/23 11/12/23 Strength: 10 MEQ TABLET.ER 1404 1407 risperiDONE (RisperDAL) 1 MG PO BID 11/12/23 11/12/23 Strength: 1 MG TABLET 1404 1407 Lisinopril (lisinopriL) 20 MG PO DAILY 11/12/23 11/12/23 Strength: 20 MG TABLET 1404 1407 SIMVASTATIN (ZOCOR) 20 MG PO HS 11/12/23 11/12/23 Strength: 20 MG TABLET 1405 1407 hydrOXYzine HCL 25 MG PO HS 11/12/23 11/12/23 (hydrOXYzine) 1405 1407 Strength: 25 MG TAB Cetirizine HCl 10 MG PO DAILY 11/12/23 11/12/23 Strength: 10 MG TABLET 1405 1407 DICLOFENAC SODIUM 50 MG PO 11/12/23 11/12/23 (VOLTAREN) TID PRN PRN 1406 1407 Strength: 50 MG TAB DIRECTED amLODIPine BESYLATE 10 MG PO DAILY 11/12/23 11/12/23 (NORVASC) 1406 1407 Strength: 10 MG TABLET ASPIRIN (ASPIRIN EC) 81 MG PO DAILY 11/12/23 11/12/23 Strength: 81 MG TABLET 1407 1407 FUROSEMIDE (LASIX) 20 MG PO BID 11/12/23 11/12/23 Strength: 20 MG TAB 1409 1409 Current Hospital Medications: Sig/Francisco J Start time Last Medication Dose Route Stop Time Status Admin Multivitamins/ 1 UDTAB DAILY@0800 11/12 0800 AC Minerals PO Insulin Human Lispro 0 HS 11/11 2100 AC SUBQ Magnesium Sulfate 50 ML ONCE ONE 11/11 1400 AC IV 11/11 1429 Insulin Human Lispro 0 TIDWM 11/11 1230 AC SUBQ Acetaminophen 650 MG Q6HP PRN 11/11 1200 AC PO Al Hydrox/Mg Hydrox/ 30 ML Q4HP PRN 11/11 1200 AC Simethicone PO Docusate Sodium 100 MG BIDP PRN 11/11 1200 AC PO Magnesium Hydroxide 30 ML DP PRN 11/11 1200 AC PO Ondansetron HCl 4 MG Q8HP PRN 11/11 1200 AC IV Sodium Chloride 1,000 ML UD 11/11 1200 AC IV Famotidine 20 MG BID 11/11 1148 AC PO Magnesium Sulfate 50 ML .STK-MED ONE 11/11 1144 DC IV Allergies: Coded Allergies: No Known Allergies (11/12/23) Cardiac Risk Factors: Hypertension, Diabetes Problem List SAFE-T Triage Screening: Yes Problem List 1. Dehydration 2. Acute renal insufficiency 3. Functional assessment declined Past Medical/Social History Past medical history: Reports: arthritis, cancer (Breasts), depression, diabetes mellitus, hyperlipidemia, hypertension. Past surgical history: Reports: hysterectomy. Additional surgical history: Lumpectomy for breast cancer Family history: Reports: hypertension. Social history: Reports: retired, lives alone, single, does not smoke, no alcohol use. Review of Systems Constitutional: Reports: fatigue, generalized weakness, malaise. Denies: recent wt loss. Skin: Reports: abrasion, bruising, contusion. Denies: diaphoresis, laceration. Allergy/Immun: Denies: allergic reaction. Eyes: Denies: visual loss/blurred. ENT: Denies: nasal congestion. Respiratory: Denies: OROURKE (dyspnea on exertion), pneumonia, SOB. Cardiovascular: Reports: edema. Denies: chest pain, OROURKE (dyspnea on exertion), orthopnea. GI: Reports: GERD. Denies: hematemesis. : Reports: frequency, nocturia. Denies: dysuria. Musculoskeletal: Reports: arthritis, myalgias. Denies: lumbar pain, neck pain. Heme: Denies: adenopathy, bleeding. Endocrine: Denies: polydipsia, polyphagia. Neuro: Reports: gait problem, weakness ( generalized). Denies: lightheaded, seizure, syncope. Psych: Reports: anxiety, depression ( chronic). Denies: agitation, delusional, stress. Physical Exam VS/I O Vital Signs Result Date Time Pulse Ox 96 11/11 1347 Temp 97.6 11/11 1347 Pulse 84 11/11 1347 Resp 18 11/11 1347 B/P 144/63 11/11 1346 General appearance: alert, awake, MS normal, oriented Head/Eyes: atraumatic, EOMI, PERRLA ENT: normal pharynx, moist mucosal membranes Neck: non-tender, no bruit/NL carotids Cardiovascular: normal capillary refill, regular rate rhythm, normal heart sounds, BP/pulses equal bilat. Respiratory: clear to auscultation, no distress, no tenderness, symmetric expansion, on oxygen Abdomen: soft, non-tender, no rebound, no distention Abdomen quadrants: LLQ normal bowel sounds Extremities: moves all, normal capillary refill, no cyanosis, abnormal capillary refill Musculoskeletal: normal inspection Neuro/MANAGER OF SUSTAINABILITY: alert, oriented X 3, normal speech, no motor deficits, CNII-XII grossly intact Skin: dry, intact, warm Psychiatry: no hallucinations, normal affect, normal judgment/insight, normal mood Results Findings/Data: Laboratory Tests: 11/11 11/11 11/11 11/11 1041 1041 1041 1021 Chemistry Sodium (136 - 145 mmol/L) 138 Potassium (3.5 - 5.1 mmol/L) 3.8 Chloride (98 - 107 mmol/L) 96 *L Carbon Dioxide (24 - 33 mmol/L) 32 Anion Gap (10 - 20 mmol/L) 13.8 BUN (7 - 18 mg/dL) 27 *H Creatinine (0.55 - 1.02 mg/dl) 1.27 *H Est GFR (CKD-EPI 2020) (>60 mL/min) 45 *L BUN/Creatinine Ratio (12 - 20) 21 *H Glucose (70 - 99 mg/dL) 258 *H Calculated Osmolality (272 - 288 mOSM/kg) 289 *H Lactic Acid (0.4 - 2.0 mmol/L) 1.0 Calcium (8.5 - 10.1 mg/dL) 9.6 Magnesium (1.8 - 2.4 mg/dL) 1.6 *L Total Bilirubin (0.2 - 1.0 mg/dL) 0.5 AST (15 - 37 U/L) 24 ALT (14 - 59 U/L) 29 Total Alk Phosphatase (46 - 116 U/L) 120 *H Troponin I (<52 pg/mL) 8 Total Protein (6.4 - 8.2 g/dL) 7.5 Albumin (3.4 - 5.0 g/dL) 3.7 Globulin (1.5 - 4.0 g/dL) 3.8 Albumin/Globulin Ratio (0.5 - 2.0) 1.0 TSH (0.36 - 3.74 uIU/ml) 1.88 Hematology WBC (4.5 - 13.0 10e3/uL) 5.3 RBC (3.80 - 5.10 10e6/uL) 4.41 Hgb (11.5 - 15.3 g/dl) 13.9 Hct (34.0 - 46.0 %) 39.1 MCV (78.0 - 98.0 fL) 89 MCH (25.0 - 35.0 Pg) 31.5 MCHC (31.0 - 36.0 g/dL) 35.5 RDW (11.0 - 15.0 %) 12.6 Plt Count (150 - 400 10e3/uL) 146 *L Nucleat RBC Rel Count (/100 WBC) 0.0 Neut # (Auto) (1.50 - 8.00 x1000/uL) 2.44 Lymphocytes % (Manual) (10 - 50 %) 42 Basophils % (Manual) (0 - 5 %) 0 Immature Gran # (0 - 0.05 x1000/uL) 0.11 *H Segmented Neutrophils (45 - 75 %) 45 Band Neutrophils (0 - 10 %) 0 Lymphocytes # (1.20 - 5.20 x1000/uL) 1.96 Monocytes (Manual) (0 - 15 %) 11 Monocytes # (0.40 - 0.90 x1000/uL) 0.69 Eosinophils # (0.00 - 0.50 x1000/uL) 0.10 Basophils # (0.00 - 0.30 x1000/uL) 0.03 Atypical Lymphocytes (0 - 5 %) 2 Eosinophil Count (0 - 5 %) 0 Urines Ur Collection Type CLEAN CATCH Urine Color (YELLOW) LT YELLOW Urine Appearance (CLEAR) CLEAR Urine pH (5.0 - 9.0) 8.0 Ur Specific Stanton (1.005 - 1.030) 1.015 Urine Protein (NEGATIVE) NEGATIVE Urine Glucose (UA) (NEGATIVE) 4+ * Urine Ketones (NEGATIVE) NEGATIVE Urine Blood (NEGATIVE) 1+ * Urine Nitrite (NEGATIVE) NEGATIVE Urine Bilirubin (NEGATIVE) NEGATIVE Urine Urobilinogen (<1 mg/dl) NEGATIVE Ur Leukocyte Esterase (NEGATIVE) NEGATIVE Urine RBC (NONE SEEN rbc/hpf) 0-5 * Urine WBC (0 - 5 wbc/hpf) NONE SEEN Ur Squamous Epith Cells (0 - 5 epi/hpf) NONE SEEN Amorphous Sediment (NONE SEEN) NONE SEEN Urine Bacteria (NONE SEEN) NONE SEEN Urine Mucus (NONE SEEN) NONE SEEN Recent Impressions: COMPUTERIZED TOMOGRAPHY - CT BRAIN W/O CONTRAST 11/11 1034 Report Impression - Status: SIGNED Entered: 11/12/2023 1050 IMPRESSION: No CT evidence of an acute intracranial process. Electronically Signed by: Willard Coleman MD All CT scans at [facility] are performed using dose optimization techniques as appropriate to a performed exam including the following: Automated exposure control Adjustment of the mA and/or kV according to patient size (this includes techniques or standardized protocols for targeted exams where dose is matched to indication / reason for exam; i.e. extremities or head) Use of iterative reconstruction technique Impression By: C[facility]AND MINA [facility]OLOG[facility] - CHEST PORTABLE 11/11 1035 Report Impression - Status: SIGNED Entered: 11/12/2023 1048 IMPRESSION: No acute chest finding. Electronically Signed by: Willard Coleman MD Impression By: CLEVELAND MINA COMPUTERIZED TOMOGRAPHY - CT PELVIS W/O CONTRAST 11/11 1035 Report Impression - Status: SIGNED Entered: 11/12/2023 1052 IMPRESSION: No acute fracture. Mild bilateral hip osteoarthritis. Electronically Signed by: Willard Coleman MD All CT scans at [facility] are performed using dose optimization techniques as appropriate to a performed exam including the following: Automated exposure control Adjustment of the mA and/or kV according to patient size (this includes techniques or standardized protocols for targeted exams where dose is matched to indication / reason for exam; i.e. extremities or head) Use of iterative reconstruction technique Impression By: CLEVELAND MINA Results: labs reviewed, vital signs stable, rhythm personally rev'd, x-ray personally reviewed Diagnosis, Assessment Plan Dx/Assessment/Plan: Dehydration with recent addition of Lasix -gentle IV fluids -hold diuretics Acute renal insufficiency -prerenal secondary to above Functional decline with recurrent falls -8 falls this week by EMS -inability to currently care for herself at home -agrees to work with physical and occupational therapy -social service consult for rehab placement Diabetes type 2 -Accu-Cheks with sliding scale insulin -diabetic diet PVD awaiting surgery [place] December 02 Previous breast cancer with left lumpectomy greater than 10 years Tardive dyskinesia for years with tongue movements and lip smacking chronic stable Moderate protein calorie malnutrition -vitamins and nutritional supplements Hypertension/hyperlipidemia -home meds Depression/anxiety -home medications adjust as needed Restless leg syndrome -home med risperidone SCDs for DVT prophylaxis Protonix for gastroesophageal reflux disease and GI prophylaxis DNR Brother POVickie not in writing but family present Shared decision-making patient family in the room agree to the above plan all were given time to ask questions and all questions were answered in detail. Advanced care planning: I confirmed that the patient's advanced care plan is present, code status is documented, or surrogate decision maker is listed in the patient's medical record. External documentation review: I have reviewed patient's records from several sources including emergency department notes, prior discharge summary, prior admission H P, prior diagnostic imaging/laboratory reports. Documentation of Current medications: I have utilized all available immediate resources to obtain, update or review the patient's current medications including all prescriptions, [id number]-otkymyv products, herbals, cannabis/ cannabidiol products, and vitamin/mineral/dietary nutritional supplements. Potential Risk of Events: Potential risk of an Adverse Event for this patient may include: [ ] Fall, arrhythmia, cardiac arrest Orders: Procedure Date/time Status PHYSICAL THERAPY CONSULT 11/12 0800 Active COMP METABOLIC PANEL 11/12 0600 Active CBC W/AUTO DIFFERENTIAL 11/12 0600 Active REGULAR DIET 11/11 L Active STUDENT SERVICES VICE PRESIDENT CONSULT 11/11 1423 Active Suggested Problem 11/11 1147 Active VTE Risk Assessment: Provider 11/11 1147 Active Vital Signs + 11/11 1147 Active Sequential Compression Device 11/11 1147 Active Saline Lock + 11/11 1147 Active RT: Oxygen Therapy + 11/11 1147 Active Intake Output + 11/11 1147 Active Hypoglycemia Protocol + 11/11 1147 Active Weight: Obtain -POM + 11/11 1147 Active Activity + 11/11 1147 Active Blood Glucose Monitoring + 11/11 1147 Active MANAGER CUSTOMS CONSULT 11/11 1147 Active CODE STATUS 11/11 1147 Active ADMIT ORDER FROM [facility] 11/11 1147 Active ADMIT ORDER FROM [facility] 11/11 UNK Active Medications Ordered - 12 Hrs Acetaminophen 650 MG Q6HP PRN PO PAIN 1-3/TEMP >/= 100.5 Al Hydrox/Mg Hydrox/Simethicone 30 ML Q4HP PRN PO DYSPEPSIA Docusate Sodium 100 MG BIDP PRN PO CONSTIPATION Famotidine 20 MG BID PO Insulin Human Lispro 0 HS SUBQ Insulin Human Lispro 0 TIDWM SUBQ Magnesium Hydroxide 30 ML DP PRN PO CONSTIPATION Multivitamins/Minerals 1 UDTAB DAILY@0800 PO Ondansetron HCl 4 MG Q8HP PRN IV NAUSEA AND VOMITING Sodium Chloride 1,000 ML UD IV Code status: no code Plan discussed with: patient, daughter at 1458 RPT #: [id number] END OF REPORT CC'ed Logic: Attending Provider: ANNELIESE PRATER Referring Provider: ANNELIESE PRATER Consulting Provider: RIO AVELAR Admitting Provider: ANNELIESE tavares, JOBY - [facility] 11/14/2023 08:56:05 Clinic Note : [facility] Clinical Note REPORT #: [id number] REPORT STATUS: Signed DATE: 11/13/23 TIME: 1026 PATIENT: BEA SIMMONS UNIT #: [id number] ROOM/BED: [address] AGE: 73 SEX: F ATTEND: William Santana MD ADM AUTHOR: Anneliese RODRIGUEZ,William Rodas * ALL edits or amendments must be made on the electronic/computer document * Clinical Note Note: Allergies: No Known Allergies (Coded, 11/12/23) 24 hour I O ending at 0700: 11/12 1900 Intake Total Output Total 2750 600 Balance -2750 -600 Output, Urine 2750 600 Patient 66.358 kg 65.903 kg Weight Laboratory Tests: 11/12 11/12 11/11 11/11 11/11 0628 0437 1936 1700 1451 Blood Gas POC Capillary Glucose (70 - 99 mg/dL) 189 *H 258 *H 275 *H 316 *H Chemistry Sodium (136 - 145 mmol/L) 138 Potassium (3.5 - 5.1 mmol/L) 4.2 Chloride (98 - 107 mmol/L) 103 Carbon Dioxide (24 - 33 mmol/L) 28 Anion Gap (10 - 20 mmol/L) 11.2 BUN (7 - 18 mg/dL) 18 Creatinine (0.55 - 1.02 mg/dl) 0.93 Est GFR (CKD-EPI 2020) (>60 mL/min) 65 BUN/Creatinine Ratio (12 - 20) 19 Glucose (70 - 99 mg/dL) 177 *H Calculated Osmolality (272 - 288 281 mOSM/kg) Calcium (8.5 - 10.1 mg/dL) 8.3 *L Total Bilirubin (0.2 - 1.0 mg/dL) 0.3 AST (15 - 37 U/L) 21 ALT (14 - 59 U/L) 24 Total Alk Phosphatase (46 - 116 U/L) 104 Total Protein (6.4 - 8.2 g/dL) 5.6 *L Albumin (3.4 - 5.0 g/dL) 2.9 *L Globulin (1.5 - 4.0 g/dL) 2.7 Albumin/Globulin Ratio (0.5 - 2.0) 1.1 Hematology WBC (4.5 - 13.0 10e3/uL) 5.3 RBC (3.80 - 5.10 10e6/uL) 3.80 Hgb (11.5 - 15.3 g/dl) 11.8 Hct (34.0 - 46.0 %) 34.0 MCV (78.0 - 98.0 fL) 90 MCH (25.0 - 35.0 Pg) 31.1 MCHC (31.0 - 36.0 g/dL) 34.7 RDW (11.0 - 15.0 %) 12.5 Plt Count (150 - 400 10e3/uL) 99 *L Neut % (Auto) (35 - 75 %) 45 [place] % (Auto) (0 - 15 %) 14 Nucleat RBC Rel Count (/100 WBC) 0.0 Neut # (Auto) (1.50 - 8.00 x1000/uL) 2.38 Immature Gran % (0 - 1) 1 Lymphocytes % (10 - 50 %) 37 Eosinophils % (0 - 5 %) 3 Basophils % (0 - 5 %) 0 Immature Gran # (0 - 0.05 x1000/uL) 0.06 *H Lymphocytes # (1.20 - 5.20 x1000/uL) 1.93 Monocytes # (0.40 - 0.90 x1000/uL) 0.75 Eosinophils # (0.00 - 0.50 x1000/uL) 0.15 Basophils # (0.00 - 0.30 x1000/uL) 0.02 11/11 11/11 11/11 1041 1041 1041 Chemistry Sodium (136 - 145 mmol/L) 138 Potassium (3.5 - 5.1 mmol/L) 3.8 Chloride (98 - 107 mmol/L) 96 *L Carbon Dioxide (24 - 33 mmol/L) 32 Anion Gap (10 - 20 mmol/L) 13.8 BUN (7 - 18 mg/dL) 27 *H Creatinine (0.55 - 1.02 mg/dl) 1.27 *H Est GFR (CKD-EPI 2020) (>60 mL/min) 45 *L BUN/Creatinine Ratio (12 - 20) 21 *H Glucose (70 - 99 mg/dL) 258 *H Calculated Osmolality (272 - 288 mOSM/kg) 289 *H Lactic Acid (0.4 - 2.0 mmol/L) 1.0 Calcium (8.5 - 10.1 mg/dL) 9.6 Magnesium (1.8 - 2.4 mg/dL) 1.6 *L Total Bilirubin (0.2 - 1.0 mg/dL) 0.5 AST (15 - 37 U/L) 24 ALT (14 - 59 U/L) 29 Total Alk Phosphatase (46 - 116 U/L) 120 *H Troponin I (<52 pg/mL) 8 Total Protein (6.4 - 8.2 g/dL) 7.5 Albumin (3.4 - 5.0 g/dL) 3.7 Globulin (1.5 - 4.0 g/dL) 3.8 Albumin/Globulin Ratio (0.5 - 2.0) 1.0 TSH (0.36 - 3.74 uIU/ml) 1.88 Hematology WBC (4.5 - 13.0 10e3/uL) 5.3 RBC (3.80 - 5.10 10e6/uL) 4.41 Hgb (11.5 - 15.3 g/dl) 13.9 Hct (34.0 - 46.0 %) 39.1 MCV (78.0 - 98.0 fL) 89 MCH (25.0 - 35.0 Pg) 31.5 MCHC (31.0 - 36.0 g/dL) 35.5 RDW (11.0 - 15.0 %) 12.6 Plt Count (150 - 400 10e3/uL) 146 *L Nucleat RBC Rel Count (/100 WBC) 0.0 Neut # (Auto) (1.50 - 8.00 x1000/uL) 2.44 Lymphocytes % (Manual) (10 - 50 %) 42 Basophils % (Manual) (0 - 5 %) 0 Immature Gran # (0 - 0.05 x1000/uL) 0.11 *H Segmented Neutrophils (45 - 75 %) 45 Band Neutrophils (0 - 10 %) 0 Lymphocytes # (1.20 - 5.20 x1000/uL) 1.96 Monocytes (Manual) (0 - 15 %) 11 Monocytes # (0.40 - 0.90 x1000/uL) 0.69 Eosinophils # (0.00 - 0.50 x1000/uL) 0.10 Basophils # (0.00 - 0.30 x1000/uL) 0.03 Atypical Lymphocytes (0 - 5 %) 2 Eosinophil Count (0 - 5 %) 0 Vital Signs: Date Time Temp Pulse Resp B/P B/P Pulse O2 O2 Flow FiO2 Mean Ox Delivery Rate 11/12 0837 159/81 11/12 0816 97.4 73 18 159/81 97 ROOM AIR 11/12 0439 98.3 64 16 154/60 93 ROOM AIR 11/12 0041 98.0 69 16 160/67 95 ROOM AIR 11/11 2205 142/66 11/11 2000 98.6 86 14 135/79 95 ROOM AIR 11/11 1605 97.0 78 18 142/66 93 ROOM AIR 11/11 1429 98.7 80 18 149/71 98 ROOM AIR 11/11 1347 97.6 84 18 96 11/11 1346 144/63 11/11 1232 76 98 11/11 1231 190/79 11/11 1202 77 98 11/11 1201 157/73 11/11 1131 81 98 11/11 1130 166/77 11/11 1101 79 99 11/11 1101 79 99 11/11 1100 182/74 11/11 1100 182/74 11/11 1042 85 169/77 97 11/11 1042 85 169/77 97 11/11 1036 81 180/86 97 11/11 1036 81 180/86 97 Home Medications: Medication Dose/Rte/Freq Days Qty Entered Last Max Daily Dose Reviewed CARVEDILOL (COREG) 12.5 MG PO BID 11/12/23 11/12/23 Strength: 12.5 MG TABLET 1400 1407 DIVALPROEX SODIUM 500 MG PO BID 11/12/23 11/12/23 (DEPAKOTE ER) 1401 1407 Strength: 250 MG TAB [GLYXAMBI] 11/12/23 11/12/23 Strength: 1402 1407 traZODone HCL (DESYREL) 50 MG PO HS 11/12/23 11/12/23 Strength: 50 MG TAB 1403 1407 PANTOPRAZOLE SOD 40 MG PO DAILY 11/12/23 11/12/23 SESQUIHYDRATE 1403 1407 (PROTONIX) Strength: 40 MG TABLET Potassium Chloride 10 MEQ PO DAILY 11/12/23 11/12/23 Strength: 10 MEQ TABLET.ER 1404 1407 risperiDONE (RisperDAL) 1 MG PO BID 11/12/23 11/12/23 Strength: 1 MG TABLET 1404 1407 Lisinopril (lisinopriL) 20 MG PO DAILY 11/12/23 11/12/23 Strength: 20 MG TABLET 1404 1407 SIMVASTATIN (ZOCOR) 20 MG PO HS 11/12/23 11/12/23 Strength: 20 MG TABLET 1405 1407 hydrOXYzine HCL 25 MG PO HS 11/12/23 11/12/23 (hydrOXYzine) 1405 1407 Strength: 25 MG TAB Cetirizine HCl 10 MG PO DAILY 11/12/23 11/12/23 Strength: 10 MG TABLET 1405 1407 DICLOFENAC SODIUM 50 MG PO 11/12/23 11/12/23 (VOLTAREN) TID PRN PRN 1406 1407 Strength: 50 MG TAB DIRECTED ASPIRIN (ASPIRIN EC) 81 MG PO DAILY 11/12/23 11/12/23 Strength: 81 MG TABLET 1407 1407 Current Hospital Medications: Sig/Francisco J Start time Last Medication Dose Route Stop Time Status Admin Hydrocodone Bitart/ 1 EACH Q4HP PRN 11/12 0930 AC Acetaminophen PO Aspirin 81 MG DAILY 11/12 0900 AC 11/12 PO 0836 Multivitamins/ 1 UDTAB DAILY@0800 11/12 0800 AC 11/12 Minerals PO 0837 Pantoprazole Sodium 40 MG DBF 11/12 0730 AC 11/12 Sesquihydrate PO 0836 Carvedilol 12.5 MG BID 11/11 2100 AC 11/12 PO 0837 Divalproex Sodium 500 MG BID 11/11 2100 AC 11/12 PO 0836 Insulin Human Lispro 0 HS 11/11 2100 AC 11/11 SUBQ 2205 Risperidone 1 MG BID 11/11 2100 AC 11/12 PO 0836 Trazodone HCl 50 MG HS 11/11 2100 AC 11/11 PO 2206 Magnesium Sulfate 50 ML ONCE ONE 11/11 1400 DC 11/11 IV 11/11 1429 1450 Insulin Human Lispro 0 TIDWM 11/11 1230 AC 11/12 SUBQ 0836 Acetaminophen 650 MG Q6HP PRN 11/11 1200 AC PO Al Hydrox/Mg Hydrox/ 30 ML Q4HP PRN 11/11 1200 AC Simethicone PO Docusate Sodium 100 MG BIDP PRN 11/11 1200 AC PO Magnesium Hydroxide 30 ML DP PRN 11/11 1200 AC PO Ondansetron HCl 4 MG Q8HP PRN 11/11 1200 AC IV Sodium Chloride 1,000 ML UD 11/11 1200 AC 11/11 IV 1431 Famotidine 20 MG BID 11/11 1148 AC 11/12 PO 0836 Magnesium Sulfate 50 ML .STK-MED ONE 11/11 1144 DC IV Alcohol Use: Alcohol Frequency: Smoking Status: Number of Years: Type of tobacco used: 81-year-old female with PVD awaiting surgery in [place] December 02, diabetes, hypertension, DJD of spine, oa hips and knees, depression, tardive dyskinesia, previous breast cancer with left lumpectomy and was brought in by EMS after another fall. She is been seen by EMS 8 times this week for falls at home. This time they brought her in to be evaluated. The patient states she was recently started on Lasix for lower extremity edema. This has made her dehydrated in the past and caused her to fall which she has been doing again. Today she feels better with hydration has more energy but overall still weak. She did get up with therapy yesterday but was exceedingly unsteady on her feet. She was minimally functional with a lift chair at home prior to this but is working with therapy. Pain is still present in her back. She feels it is adequately controlled. Oral intake his slightly better but she still has poor fluid intake. She is getting IV fluid still requires this at this time. Objective Vital signs reviewed including laboratory data Awake alert elderly female in no acute respiratory distress Dry oral mucosa Heart regular Lungs clear to auscultation Abdomen soft Extremities warm and dry Diagnosis, Assessment Plan Dx/Assessment/Plan: Dehydration with recent addition of Lasix -gentle IV fluids -hold diuretics Acute renal insufficiency improved with hydration -prerenal secondary to above Functional decline with recurrent falls -8 falls this week by EMS -inability to currently care for herself at home -agrees to work with physical and occupational therapy -social service consult for rehab placement Diabetes type 2 -Accu-Cheks with sliding scale insulin -diabetic diet PVD awaiting surgery [place] December 02 Previous breast cancer with left lumpectomy greater than 10 years Tardive dyskinesia for years with tongue movements and lip smacking chronic stable Moderate protein calorie malnutrition -vitamins and nutritional supplements -push oral intake Hypertension/hyperlipidemia -home meds Depression/anxiety seems stable -home medications adjust as needed Restless leg syndrome -home med risperidone SCDs for DVT prophylaxis Protonix for gastroesophageal reflux disease and GI prophylaxis DNR Brother POA not in writing but family present at 1032 RPT #: [id number] END OF REPORT CC'ed Logic: Attending Provider: ANNELIESE PRATER Referring Provider: ANNELIESE PRATER Consulting Provider: RIO AVELAR Admitting Provider: ANNELIESE Zarate, MULTICULTURAL SERVICES LIBRARIAN [address], [place], [address], [place] - [facility] 11/14/2023 08:23:41 Procedures Surgical History Date Name Laterality Status Provider Name and Address Organization Details Recorded Time 02/16/20 Medication Reconcilliation completed Carmela Radha [place] - [facility] 02/16/2024 09:25:17 06/17/19 Medication Reconcilliation completed Carmela Radha [place] - [facility] 06/17/2023 13:31:56 05/26/19 Advance Care Planning completed Carmela [place] - [facility] 05/26/2023 10:39:33 05/26/19 Functional Status Assessed completed Carmela [place] - [facility] 05/26/2023 10:39:33 hysterectomy completed Carmela [place] - [facility] 02/15/2023 14:55:11 lumpectomy of breast completed Carmela Radha [place] - [facility] 02/15/2023 14:55:43 cataract surgery completed Rosaura a Radha [place] - [facility] 02/15/2023 14:56:03 Imaging Results None recorded. Procedure Notes None recorded. Medical Equipment None Reported. Allergies No known drug allergies Medications Name Sig Start Date Stop Date Status Note LastModified by Organization Details LastModified Time amoxicill in 500 mg capsule TAKE ONE (1) CAPSULE TWICE A DAY BY ORAL ROUTE FOR 7 DAYS. 03/15 completed Not Available Not Available Not Available metformin 500 mg tablet TAKE ONE (1) TABLET TWICE A DAY BY ORAL ROUTE FOR 30 DAYS. 08/31 completed Not Available Not Available Not Available potassium chloride ER 10 mEq capsule,e xtended release TAKE ONE CAPSULE BY MOUTH TWICE DAILY --TAKE WITH FOOD-- 02/15 completed Not Available Not Available Not Available carvedilo l 12.5 mg tablet TAKE ONE (1) TABLET TWICE A DAY BY ORAL ROUTE FOR 90 DAYS. active Not Available Not Available No t Available bumetanid e 2 mg tablet TAKE 1 TABLET ORALLY DAILY active Not Available Not Available No t Available trazodone 50 mg tablet Take 1 tablet every day by oral route at bedtime for 90 days. active Not Available Not Available No t Available cetirizin e 10 mg tablet Take 1 tablet every day by oral route for 90 days. 2023 active Not Available Not Available Not Avai lable azithromy chirag 250 mg tablet TAKE 2 TABLETS BY MOUTH ON DAY 1, THEN TAKE 1 TABLET DAILY ON DAYS 2-5 02/15 completed Not Available Not Available Not Available lisinopri l 20 mg tablet Take 1 tablet every day by oral route for 90 days. active Not Available Not Available No t Available ondansetr on HCl 4 mg tablet Take 1 tablet every 6 hours by oral route as needed. 02/15 completed Not Available Not Available Not Available potassium chloride ER 10 mEq tablet,ex tended release Take 1 tablet every day by oral route. active Not Available Not Available No t Available fexofenad ine 180 mg tablet TAKE ONE TABLET BY MOUTH EVERY DAY with water. DO not take with fruit juices 02/15 completed Not Available Not Available Not Available divalproe x 500 mg tablet,de layed release 02/06 completed Not Available Not Available Not Available aspirin 81 mg tablet,de layed release TAKE ONE (1) TABLET BY MOUTH EVERY DAY 2023 active Not Available Not Available Not Avai labsanjeev hydrocort isone 2.5 % topical cream with perineal applicato r for RECTAL use APPLY TOPICALL Y TO THE AFFECTED AREA(S) TWICE DAILY FOR 5 DAYS 02/15 completed Not Available Not Available Not Available amoxicill in 875 mg tablet TAKE ONE TABLET BY MOUTH EVERY TWELVE HOURS FOR 10 DAYS -- FINISH ALL MEDICINE -- 02/15 completed Not Available Not Available Not Available amlodipin e 10 mg tablet TAKE ONE (1) TABLET BY MOUTH EVERY DAY 10/13 completed Not Available Not Available Not Available cephalexi n 500 mg capsule TAKE ONE (1) CAPSULE BY MOUTH TWICE DAILY FOR 10 DAYS 09/22 completed Not Available Not Available Not Available pantopraz ole 40 mg tablet,de layed release TAKE ONE (1) TABLET EVERY DAY BY ORAL ROUTE. active Not Available Not Available No t Available simvastat in 20 mg tablet Take 1 tablet every day by oral route. active Not Available Not Available No t Available cyanocoba carroll (vit B-12) 1,000 mcg/mL injection solution Inject 1 mL every month by subcutan eous route. 02/06 completed Not Available Not Available Not Available nystatin 100,000 unit/gram topical cream APPLY TO THE AFFECTED AREA(S) BY TOPICAL ROUTE TWO (2) TIMES PER DAY active Not Available Not Available No t Available benztropi ne 1 mg tablet TAKE ONE TABLET BY MOUTH TWICE DAILY 03/18 completed Not Available Not Available Not Available aspirin 81 mg chewable tablet Chew 1 tablet every day by oral route. 04/14 completed Not Available Not Available Not Available Tylenol 325 mg tablet Take 2 tablets every 6 hours by oral route as needed for 30 days. 2023 active Not Available Not Available Not Avai lable simethico ne 125 mg chewable tablet Take 1 tablet twice a day by oral route as needed for 7 days, for gas. 08/28 completed Not Available Not Available Not Available hydroxyzi ne HCl 25 mg tablet TAKE ONE (1) TABLET EVERY DAY BY ORAL ROUTE AT BEDTIME FOR 90 DAYS. active Not Available Not Available No t Available ammonium lactate 12 % topical cream APPLY TOPICALL Y TO THE AFFECTED AREA(S) TWICE DAILY -- FOR EXTERNAL USE ONLY-- 02/15 completed Not Available Not Available Not Available mupirocin 2 % topical ointment APPLY A SMALL AMOUNT TO THE AFFECTED AREA BY TOPICAL ROUTE THREE (3) TIMES PER DAY active Not Available Not Available No t Available diclofena c sodium 50 mg tablet,de layed release Take 1 tablet every day by oral route before meal(s) for 30 days. 2023 active Not Available Not Available Not Avai lable furosemid e 20 mg tablet TAKE ONE (1) TABLET EVERY DAY BY ORAL ROUTE FOR 90 DAYS, FOR EDEMA. active Not Available Not Available No t Available dexametha sone sodium phosphate 4 mg/mL injection solution Inject 1 mL every day by intramus cular route. 06/28 completed Not Available Not Available Not Available polyethyl sylvia glycol 3350 17 gram/dose oral powder TAKE 17 G EVERY DAY BY ORAL ROUTE. active Not Available Not Available No t Available albuterol sulfate HFA 90 mcg/actua tion aerosol inhaler INHALE ONE (1) PUFF EVERY FOUR (4) HOURS BY INHALATI ON ROUTE NEEDED. active Not Available Not Available No t Available fluticaso ne propionat e 50 mcg/actua tion nasal spray,marie pension SPRAY ONE (1) SPRAY EVERY DAY BY INTRANAS AL ROUTE. active Not Available Not Available No t Available metformin ER 500 mg tablet,ex tended release 24 hr TAKE ONE (1) TABLET TWICE A DAY BY ORAL ROUTE FOR 30 DAYS. 01/30 completed Not Available Not Available Not Available risperido ne 1 mg tablet TAKE ONE (1) TABLET TWICE A DAY BY ORAL ROUTE FOR 90 DAYS. active Not Available Not Available No t Available glipizide 5 mg tablet 02/15 completed Not Available Not Available Not Available naproxen 500 mg tablet TAKE 1 TABLET BY MOUTH EVERY 12 HOURS NEEDED FOR PAIN 10/16 completed Not Available Not Available Not Available oxycodone 5 mg tablet Take 1 tablet every 4 hours by oral route. active few tablets from er to take home Not Available Not Available Not Available divalproe x ER 250 mg tablet,ex tended release 24 hr Take 2 tablets twice a day by oral route for 90 days. 2023 active Not Available Not Available Not Avai lable lactulose 10 gram/15 mL oral solution take 15 ML BY MOUTH EVERY DAY NEEDED 02/15 completed Not Available Not Available Not Available Tradjenta 5 mg tablet TAKE ONE TABLET BY MOUTH EVERY DAY 02/15 completed Not Available Not Available Not Available Jardiance 25 mg tablet TAKE ONE TABLET BY MOUTH EVERY DAY 02/15 completed Not Available Not Available Not Available Glyxambi 25 mg-5 mg tablet TAKE ONE (1) TABLET EVERY DAY BY ORAL ROUTE IN THE MORNING active Not Available Not Available No t Available Ingrezza 40 mg capsule Take 1 capsule every day by oral route. 07/11 completed Not Available Not Available Not Available Ingrezza Initiatio n (tardive) 40 mg (7)-80 mg (21) capsules, dose pack 07/11 completed Not Available Not Available Not Available Rybelsus 14 mg tablet TAKE ONE TABLET BY MOUTH EVERY DAY 30 minutes BEFORE first food, beverage , OR other medicati on. 07/11 completed Not Available Not Available Not Available Rybelsus 3 mg tablet TAKE ONE TABLET BY MOUTH EVERY DAY 02/15 completed Not Available Not Available Not Available Vitals Date Recorded Body height Body mass index (BMI) Body weight Body temperature Heart rate Respiratory rate Oxygen saturation Oxygen saturation in Arterial blood by Pulse oximetry Systolic And Diastolic Systolic And Diastolic Provider Name and Address Organization Details Last Updated DateTime 4 165.1 cm 26.5 kg/m2 58469.1 9 g 97.8 [degF] 88 /min 18 /min 97 % 97 % 164/66 mm[Hg] 158/60 mm[Hg] Luisa Stears [place] - [facility] 4 13:35:43 Date Recorded Body height Body mass index (BMI) Body weight Provider Name and Address Organization Details Last Updated DateTime 11/01/2023 165.1 cm 26.1 kg/m2 24291 g Carmela Garcia [facility] 11/01/2023 09:03:50 Date Recorded Body height Body mass index (BMI) Body weight Body temperature Heart rate Oxygen saturation Oxygen saturation in Arterial blood by Pulse oximetry Respiratory rate Pain severity - 0-10 verbal numeric rating [Score] - Reported Systolic And Diastolic Provider Name and Address Organization Details Last Updated DateTime 4 165.1 cm 26.1 kg/m2 50846 g 98 [degF] 74 /min 96 % 96 % 20 /min 5 110/70 mm[Hg] Carmela Garcia [facility] 4 11:35:45 Date Recorded Body height Body mass index (BMI) Body weight Heart rate Body temperature Oxygen saturation Oxygen saturation in Arterial blood by Pulse oximetry Respiratory rate Pain severity - 0-10 verbal numeric rating [Score] - Reported Systolic And Diastolic Provider Name and Address Organization Details Last Updated DateTime 4 165.1 cm 28.5 kg/m2 88883.3 g 86 /min 98 [degF] 99 % 99 % 18 /min 0 122/72 mm[Hg] Carmela Radha [facility] 4 13:54:44 Date Recorded Body height Body mass index (BMI) Body weight Heart rate Oxygen saturation Oxygen saturation in Arterial blood by Pulse oximetry Respiratory rate Pain severity - 0-10 verbal numeric rating [Score] - Reported Systolic And Diastolic Provider Name and Address Organization Details Last Updated DateTime 4 165.1 cm 28.6 kg/m2 79321.8 9 g 73 /min 97 % 97 % 18 /min 0 136/80 mm[Hg] Carmela Garcia [place] - [facility] 4 09:34:53 Social History Question Answer Notes LastModified by Organizat ion Details LastModified Time Tobacco Smoking Status Never Smoker Carmela Garcia null, [place] - [facility] 02/15/2023 14:53:29 Do You Have An Advance Directive? No Information n ot available 02/15/2023 Are You Blind Or Do You Have Difficulty Seeing? No Information n ot available 02/15/2023 What Is Your Level Of Caffeine Consumption? None Information not available 02/15/2023 In The 14 Days Before Symptom Onset, Have You Had Close Contact With A Laboratory-confirm ed COVID-19 While That Case Was Ill? No Information n ot available 02/15/2023 In The 14 Days Before Symptom Onset, Have You Had Close Contact With A Person Who Is Under Investigation For COVID-19 While That Person Was Ill? No Information not available 02/15/2023 Have You Been To An Area Known To Be High Risk For COVID-19? No Information not available 02/15/2023 Are You Deaf Or Do You Have Serious Difficulty Hearing? No Information not available 02/15/2023 What Type Of Diet Are You Following? DIABETIC Information n ot available 02/15/2023 Have You Processed Blood Or Body Fluids From An Ebola Virus Disease Patient Without Appropriate PPE? No Information not available 02/15/2023 Do You Reside In Or Have You Traveled To An Area Where Ebola Virus Transmission Is Active? No Information not available 02/15/2023 Have There Been Any Changes To Your Family Or Social Situation? No Information no t available 02/15/2023 What Is The Fluoride Status Of Your Home? Fluoridated Information not available 02/15/2023 Have You Recently Or Are You Planning To Travel To An Area With Zika Virus? No Information not available 02/15/2023 Do You Have A Medical Power Of Weight Count Operator? No Information not available 02/15/2023 What Was The Date Of Your Most Recent Tobacco Screening? 06/10/2023 Information not available 06/10/2023 How Many Children Do You Have? 0 Information not available 02/15/2023 What Is Your Relationship Status? Information not available 02/15/2023 Do You Have Smoke And Carbon Monoxide Detectors In Your Home? Yes Information not available 02/15/2023 Are You Passively Exposed To Smoke? No Information no t available 02/15/2023 Has Tobacco Cessation Counseling Been Provided? No Information not available 02/15/2023 Do You Have Difficulty Walking Or Climbing Stairs? No Information not available 02/15/2023 Sex: Female Functional Status Question Answer Note LastModified by Organizat ion Details LastModified Time Do you use any illicit or recreational drugs? No Information not available 02/15/2023 Do you or have you ever used any other forms of tobacco or nicotine? No Information not available 02/15/2023 What is your level of alcohol consumption? None Information not available 02/15/2023 Are you currently employed? No Information not available 02/15/2023 Do you have transportation difficulties? No Information not available 02/15/2023 Are you able to walk independently without assistance or assistive devices? YESASSIST Information not available 02/15/2023 Do you have difficulty doing errands alone? Yes Information not available 02/15/2023 Are you able to care for yourself independently? Yes Information not available 02/15/2023 Do you have difficulty dressing, bathing, grooming, or toileting? No Information not available 02/15/2023 Mental Status Question Answer Note LastModified by Organization D etails LastModified Time Do you have difficulty concentrating, remembering or making decisions? No Information no t available 02/15/2023 Family History Relationship Description Onset Age of this Age Resolved Age Notes LastModified by Organization Details LastModified Time Mother Diabetes mellitus cbuckler Not available 2022 14:53:08 Medical History Condition Response Diabetes Y Colonoscopy N Schizophrenia Y Mental Disorder Y Breast Cancer Y Gynecological History Statement/Question Response Menses Monthly N If Post Menopausal, Age at Menopause Date of Last Pap Smear Date of Last Colonoscopy Date of Last Mammogram Most Recent Bone Density Obstetrics History GPAL:G 0 P 0 0 1 0 Type Value Multiple Births 0 Full Term 0 Induced 0 Spontaneous 1 Premature 0 Living 0 Ectopics 0 Total 0 Immunizations Vaccine Type Date Status Note Provider Nam e and Address Organization Details Recorded Time Pneumococcal conjugate PCV20, polysaccharide CTV142 conjugate, adjuvant, PF 3 completed Carmela Garcia null, [place] - [facility] 03/29/2023 13:32:38 Influenza, high-dose, trivalent, PF 4 completed Carmela Garcia null, [place] - [facility] 02/07/2024 14:55:04 Influenza, split virus, quadrivalent, preservative 4 completed Not Available [facility] 06/10/2023 18:31:29 Influenza, split virus, quadrivalent, preservative 4 completed Not Available [facility] 06/10/2023 18:31:29 Influenza, adjuvanted, quadrivalent, PF 3 completed Not Available [facility] 06/10/2023 18:31:29 pneumococcal polysaccharide PPV23 1 completed Not Available [facility] 06/10/2023 18:31:29 Tdap 6 completed Not Available [facility] 06/10/2023 18:31:29 Pneumococcal conjugate PCV 13 6 completed Not Available [facility] 06/10/2023 18:31:29 Influenza, split virus, trivalent, preservative 9 completed Not Available [facility] 06/10/2023 18:31:29 Influenza, split virus, trivalent, preservative 7 completed Not Available [facility] 06/10/2023 18:31:29 Influenza, split virus, trivalent, preservative 8 completed Not Available [facility] 06/10/2023 18:31:29 Influenza, split virus, trivalent, PF 2 completed Not Available [facility] 06/10/2023 18:31:29 Influenza, split virus, quadrivalent, PF 3 completed Not Available [facility] 06/10/2023 18:31:29 Past Encounters Encounter ID Performer Location Encounter Start Date Encounter Closed Date Diagnosis/Indication Diagnosis SNOMED-CT Code Diagnosis ICD10 Code Diagnosis IMO Codes Diagnosis Note [id number] Jessi Wise APRN [address] [place] [address] 01/26/2021 14:19:22 01/26/2021 16:08:01 Viral screening 846384890 Z11.52 Chill 72002177 R68.83 Cough 57498364 R05 Pain in throat 822277373 R07.0 Nausea 506688585 R11.0 [id number] Jessi Wise APRN [address] [place] [address] 02/06/2021 08:24:49 02/06/2021 09:27:42 Viral screening 543868476 Z11.52 Cough 09521935 R05.9 [id number] Karen Zarate [address] [address] 02/15/2023 14:10:25 02/15/2023 16:09:31 Type 2 diabetes mellitus 28586063 E11.59 *Diabetic Measures:M etformin:n o was taken off due to kidney issuesACE/ ARB:yesASA :yesStatin :yesGLP:ye s Acid reflux 758237814 K2 1.9 Bipolar disorder 8279788 4 F31.9 Hypercholesterolemia 136 67183 E78.00 Malignant neoplasm of breast 607922260 C50.012 Schizophrenia 00548755 F 20.9 Tardive dyskinesia 79244 9007 G24.01 discussed options with pt and her brother- will check labs and then discuss which option is best for pt Screening for malignant neoplasm of colon 870134849 Z12.11 Cervical c ancer Papanicolaou smear screening declined 0743892446 77364 Z53.20 has had a total hysterecto my [id number] Karen Zarate [address] [address] 02/24/2023 10:44:37 02/24/2023 11:21:25 Abnormal gait due to muscle weakness 167376892 M62.81 Mucous mem brane dryness 110902043 R68.89 instructed pt to start back on metformin and increase fluid intakecall for any concerns or issues Unequal fe moral pulses 250414267 R09.89 [id number] Karen Zarate [address] [address] 03/15/2023 15:04:19 03/15/2023 16:19:23 Type 2 diabetes mellitus 85680076 E11.59 *Diabetic Measures:M etformin:n o was taken off due to kidney issuesACE/ ARB:yesASA :yesStatin :yesGLP:musa galvan Body mass index 25-29 - overweight 524440157 Z68.25 25.5 Overweight 810341829 E66 .3 Tardive dyskinesia 03558 9007 G24.01 [facility] is going to look over her meds, meet with pt/brother and set up pill packs.pt will hold benztropin e for now and pharmacy is going to look at all her meds if ok will start austedo Allergic rhinitis 787421 04 J30.9 [id number] Karen Zarate [address] [address] 03/18/2023 11:12:21 03/18/2023 11:56:08 Acute upper respiratory infection 25213334 J06.9 no sign of a bacterial infection. likely viral. viruses can take 7-14 days to run their course. nasal saline and bulb syringe to remove nasal drainage to help with congestion . monitor temp. Tylenol or Motrin as needed for pain or fever. encourage fluids, water, Gatorade, power aide, Pedialyte if infant/tod dler/child warm salt water gargles warm fluids sore throat lozenges sleep elevated humidifier /vaporizer follow up immediatel y for new or worsening symptoms or no noticeable improvemen t over the next 48-[id number] [facility] [address] [address] 03/29/2023 10:38:18 03/29/2023 11:43:12 Hypertensive disorder 08889949 I10 Common cold 81248855 J00 no sign of a bacterial infection. likely viral. viruses can take 7-14 days to run their course. nasal saline and bulb syringe to remove nasal drainage to help with congestion . monitor temp. Tylenol or Motrin as needed for pain or fever. encourage fluids, water, Gatorade, power aide, Pedialyte if /tod dler/child warm salt water gargles warm fluids sore throat lozenges sleep elevated humidifier /vaporizer follow up immediatel y for new or worsening symptoms or no noticeable improvemen t over the next 48-72 hours Administra tion of pneumococcal vaccine 11370472 Z23 [id number] Karen Zarate [address] [address] 04/14/2023 09:52:16 04/14/2023 11:14:14 Edema of lower extremity 005909549 R60.0 check labsif normal will give a couple days of lasix Bipolar disorder 6139891 4 F31.9 Schizophrenia 57592448 F 20.9 Type 2 linda betes mellitus 47152855 E11.59 *Diabetic Measures:M etformin:n o was taken off due to kidney issuesACE/ ARB:yesASA :yesStatin :yesGLP:ye s Congestive heart failure 51412022 I50.9 [id number] Karen Zarate [address] [address] 04/19/2023 09:55:11 04/19/2023 10:49:12 Edema of lower extremity 833328407 R60.0 pt is having a ekg at cardiology in am at 10 am will obtain a copyinform ed brother of appointgamaliel fernandes and to hold ingressa for now Depressive disorder 3272 5836 F32.A [id number] Karen Zarate [address] [address] 05/26/2023 09:57:50 05/26/2023 11:16:46 Adult health examination 722743573 Z00.00 Depression screening 171 317415 Z13.31 Examinatio n of blood pressure 141717821 Z01.30 Diet education 02888353 Z71.3 Counseling 924400356 Z71 .82 Exercise counseling . Patient encouraged to exercise 30 minutes 5 days a week. At [facility] ed risk for falls 696819961 Z91.81 STEADI FAST screening score of . Advance care planning 71 8899127 Z71.89 Finding of body mass index 754357959 E66.9 Type 2 linda betes mellitus 69988210 E11.59 *Diabetic Measures:M etformin:y es- monitorACE /ARB:yesAS A:yesStati n:yesGLP:y eslabs in 2 weeks Increased frequency of urination 852912946 R35.0 [id number] Karen Zarate [address] [address] 06/10/2023 10:18:24 06/10/2023 11:01:41 Cyst of left Bartholin's gland duct 2828296426 1169884 N75.0 continue to monitor if any issues will refer to fish farm manager [id number] Karen Zarate [address] [address] 06/17/2023 12:57:15 06/17/2023 14:06:46 Low back pain 718757370 M54.50 discussed with brother her glucose may be high the next few days- monitordo not take naproxen unless needed- do not take any other nsaids while taking med [id number] Kaern Zarate [address] [address] 06/28/2023 10:34:40 06/28/2023 11:39:55 Abnormal gait due to muscle weakness 136160078 M62.81 Falls 881173719 R29.6 pt,penitentiary referral Weakness present 7479223 07 M62.81 Unable to get on and off a bed 174712349 R26.89 discussed with pt that this might help her be able to get in and out of bed [id number] Karen Zarate [address] [address] 06/30/2023 11:11:42 06/30/2023 12:07:01 Cellulitis 647288786 L03.90 hold ingrezza for now Congestive heart failure 49162872 I50.9 follow up with cardiologi stpt needs the head of bed to elevated at least 30 degrees due to soa r/t chf [id number] Karen Zarate [employer] [address] [address] 07/12/2023 12:55:11 07/12/2023 13:45:19 Candidiasis of skin 26882292 B37.2 Pressure i njury stage II 6632090665 L89.92 relieve pressure [id number] Karen Zarate [address] [address] 08/05/2023 12:47:33 08/05/2023 13:16:21 Abdominal bloating 844236685 R14.0 if no improvemen t will order labsif any pain develops,f ever,dulce rness,n/v/ d return or go to ed archie [id number] Karen Zarate [address] [address] 08/29/2023 14:34:09 08/29/2023 15:41:29 Cellulitis of lower limb 635620381 L03.119 improvemen t- continue unaboots and home health wound care [id number] Karen Zarate [address] [address] 09/06/2023 08:05:18 09/06/2023 09:02:47 Acid reflux 502155357 K21.9 Hypercholesterolemia 136 66559 E78.00 Type 2 linda betes mellitus 10641848 E11.59 *Diabetic Measures:M etformin:y es- monitorACE /ARB:yesAS A:yesStati n:yesGLP:y es Bipolar disorder 4968328 4 F31.9 Cellulitis of lower limb 434480431 L03.119 improvemen t- continue antibiotic s [id number] Karen Zarate [address] [address] 09/23/2023 10:46:33 09/23/2023 10:59:35 Thrombocytopenic disorder 173277251 D69.6 [id number] [place] [address] 10/06/2023 10:57:55 10/06/2023 11:31:37 Hypertensive disorder 57136216 I10 today bp is good come in and have bp checked freq- comes next door for lunch 3 times a week will stop in [id number] Karen Zarate[address] [address] 10/14/2023 13:18:32 10/14/2023 14:40:39 Muscle weakness 65484535 M62.81 Hypertensive disorder 38 082621 I10 labsmonito r bpcheck pill pack to make sure she is not taking lasix and bumex- only take lasix stop bumex Fatigue 99369706 R53.83 labsif symptoms worsen return or go to ed Low back pain 838431490 M54.[id number] [facility] [facility] [place] [address] 11/01/2023 08:44:13 11/01/2023 09:59:25 Serum creatinine above reference range 006966082 R79.[id number] [facility] [facility] [address] 11/04/2023 11:16:20 11/04/2023 12:14:33 Acute low back pain 681618289 M54.50 Contusion of back 280669 03 T14.8XXA [id number] Karen Zarate[address] [address] 02/07/2024 13:33:46 02/07/2024 14:52:06 Type 2 diabetes mellitus 62978523 E11.59 *Diabetic Measures:M etformin:y es- monitorACE /ARB:yesAS A:yesStati n:yesGLP:y es Influenza vaccine needed 4701117183 106 Z23 Edema of l ower extremity 154833123 R60.0 Venous sta sis edema of bilateral lower limbs 3944036373 6863275 I87.2 [id number] Karen Zarate APRN [address] [address] 02/16/2024 09:23:01 02/16/2024 10:05:32 Hypernatremia 055872428 E87.0 Abnormal g ait due to impairment of balance 364429234 R26.89 Abnormal g ait due to muscle weakness 234049132 M62.81 Pain of ri ght ankle joint 9512334106 6181892 M25.571 Type 2 linda betes mellitus 57947934 E11.59 *Diabetic Measures:M etformin:y es- monitorACE /ARB:yesAS A:yesStati n:yesGLP:y es Health Concerns Section Related Observation LastModified by Organization Detai ls LastModified Time None Recorded Concern Status LastModified by Organization Details LastModified Time None Recorded Advance Directives Directive N: Payers Insurance Date Sequence Insurance Name Policy Number Policy Russo Covered Member ID Russo Member ID Guarantor Name 02/22/2024 2 [employer] [facility] (MEDICAID HMO) [facility] [id number] [facility] 02/22/2024 [place] [employer] [place] Warren S [place] [id number] [facility] 01/26/2021 1 *SELF PAY* Sima marcial [place] 02/06/2024 [employer] - [place]IC[place] A-[place] - [facility] (MEDICARE) Warren S [place] [id number] [facility]/06/2024 1 [place] Bea S Luz [id number] [facility] Notes Date Note Type Note Provider Name and Address Organization Details Recorded Time 10/14/2023 text/html ROS as noted in the HPI 73 year old female who presents to the office today with concerns offeeling weak, not able to get out of bed or up from a chair at times. Not able to pull herself up in bed at night.Also having low back pain, denies soa ot chest pain.pt states in the past if she felt like this her pcp gave her a vitamin shot and she felt better Karen Zarate RICARDA [address], [place], [address], [facility] - [facility] 10/14/2023 15:20:20 11/01/2023 text/html 73 yr old female presents for repeat lab work related to elevated creatinine. Carmela Garcia [facility] [place] - [facility] 11/01/2023 09:06:30 11/04/2023 text/html ROS as noted in the HPI 73 yr old female presents post fall 2 days ago. She went to sit down and missed the chair. She hit her bottom, back and neck on a hutch and complains of pain in these areas. pt states her pain in her mid back is hurting the worse the others has improved Karen Zarate [employer] [address], [place], [address], [facility] - [facility] 11/04/2023 14:00:43 02/07/2024 text/html ROS as noted in the HPI 73 yr old female presents for a diabetic follow up and swelling in her legs. She has a blister on her ring finger on her right hand. She also wants her influenza vaccine today. Karen Zarate APRN [address], [place], [address], [facility] - [facility] 02/07/2024 14:37:25 02/16/2024 text/html Emergency Depart ment Follow-Up RecordReported by PatientEmergency Room Follow-Up RecordFor discharge information, patient reportsname of hospital/urgent care patient was seen: ([facility]),patient presented to hospital/urgent care on or around: actual date 02-09 and 02-12,patient presented to hospital for treatment of: (toe pain, falls),treatment received by hospital/urgent care:,patient's condition has: improved, andhospital records available at the time of this visit: yes.ROS as noted in the HPI 73 yr old female presents for an er follow up related to falls and left toe pain. pt states she she can not walk very far due to weakness. pt states she is falling due to losing balance. pt c/o rt ankle pain. pt states el lower ext swollen. pt requesting finger stick glucose Karen Zarate, [employer] [address], [place], [address], [facility] - [facility] 02/16/2024 14:52:18 OBGyn Episode No OBEpisode recorded.
[2025-03-11 11:50] LABS: Hematocrit 34.1 % (37.0-47.0); Hemoglobin 11.4 g/dL (12.2-16.2); Immature Granulocytes % 0.6 %; Mean Corpuscular HGB Conc 33.4 g/dL (31.8-35.4); Mean Corpuscular Hemoglobin 32.0 pg (27.0-31.2); Mean Corpuscular Volume 95.8 fl (81-99); Nucleated Red Blood Cells % 0 %; Platelet Count 92 K/mm3 (142-424); Red Blood Count 3.56 M/mm3 (4.20-5.40); Red Cell Distribution Width-SD 47.8 fL; White Blood Count 5.3 K/mm3 (4.8-10.8)
[2025-03-11 11:52] LABS: VBG HCO3 35.8 mmol/L (23-30); VBG PH 7.32 mmol/L (7.31-7.41); VBG PO2 40.4 mmol/L (28-40)
[2025-03-11 11:53] LABS: Lactate Venous 2.7 mmol/L (0.4-2.0); VBG PCO2 71.5 mmol/L (35-51)
[2025-03-11 11:59] LABS: Alanine Aminotransferase 14 U/L (12-78); Albumin Level 2.8 g/dl (3.5-5.0); Albumin/Globulin Ratio 0.9 (1.1-1.8); Alkaline Phosphatase 70 U/L (38-126); Anion Gap 4.9 mEq/L (5-15); Aspartate Amino Transferase 31 U/L (14-36); Bilirubin,Total 0.6 mg/dl (0.2-1.3); Blood Urea Nitrogen 28 mg/dl (7-17); Calcium 9.1 mg/dl (8.4-10.2); Carbon Dioxide 32 mmol/L (22.0-30.0); Chloride 98 mmol/L (98-107); Creatinine Clearance Estimated 52 mL/min (50-200); Creatinine,Serum 1.30 mg/dl (0.52-1.04); Estimated Glomerular Filt Rate 40 ml/min (>60); GFR (African American) 48 ML/MIN (>60); Globulin 3.2 g/dL (1.3-3.2); Glucose 112 mg/dl (74-100); Magnesium 2.0 mg/dl (1.6-2.3); Potassium 3.9 mmoL/L (3.5-5.1); Sodium 131 mmol/L (136-145); Total Protein,Serum 6.0 g/dl (6.3-8.2)
[2025-03-11 12:03] LABS: INR 1.12 (0.9-1.1); Prothrombin Time 12.3 seconds (10.1-12.5)
[2025-03-11 12:11] LABS: NT Pro Brain Natriuretic Pep. 2520 pg/mL (0-125)
[2025-03-11 12:12] LABS: Troponin I 0.01 ng/ml (0.00-0.034)
[2025-03-11] MEDS: PIPERACILLIN/TAZO 3.375 GM in 0.9 % SODIUM CHLORIDE 50 ML IV (12:17)
[2025-03-11] MEDS: IOPAMIDOL-370 (76%);100ML BOTTLE 70 ML IV (12:39)
[2025-03-11] MEDS: SODIUM CHLORIDE 0.9% 10ML SYR (RAD ONLY) 10 ML IV (12:39)
[2025-03-11] MEDS: 0.9 % SODIUM CHLORIDE 50 ML VIAL IV (12:39)
[2025-03-11] MEDS: VANCOMYCIN/WATER FOR INJ (PEG) 1.5 GM/300 ML PIGGYBACK IV (12:44)
[2025-03-11 13:28] LABS: Lipase 45 U/L (23-300)
[2025-03-11] MEDS: ONDANSETRON 4MG/2ML VIAL 4 MG IV (14:11)
--- NOTE | 2025-03-11 14:33 | PC.NURSE ---
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
[2025-03-11 14:48] LABS: C-Reactive Protein 6.1 mg/L (0-4)
[2025-03-11 15:02] LABS: Procalcitonin 0.121 ng/mL (0.0-2.0)
[2025-03-11 15:52] LABS: Reflex Lactic Add Lactic Reflex
--- NOTE | 2025-03-11 16:05 | EXP.HP ---
History of Present Illness *Admission Date: 03/11/25 *Reason for visit:: Serial activity, hypoxia *History of present illness: Bea Escobar is a 74-year-old female with a medical history significant for mood disorder, with insufficiency, type 2 diabetes, hypertension who presents from long-term due to concerns of seizure activity and subsequent unresponsiveness, hypoxia. Patient is encephalopathic at this time and not responding to questions, so history was obtained via chart review. Nursing staff apparently found patient to have seizure-like activity, with post episode muscle rigidity, hypoxia requiring nonrebreather 15 L. She was brought to the ER and was escalated to Vapotherm 35 L 70% as she was saturating 86% on nonrebreather 15 L. Workup in the ED significant for WBC 5.3, ABG pH 7.32 pCO2 71.5, lactic acid 2.7, CRP 6.1, BNP 2520. CTA chest revealed multifocal pneumonia greatest in the left lower lobe, and left breast mass favoring postoperative fluid collection. CT abdomen significant for rectosigmoid fecal impaction and cholelithiasis. She was given Zosyn, vancomycin. Given this presentation ED provider discussed case with me and I decided to admit patient for further evaluation management. [facility] Disclaimer: The information contained in this section may have been updated after the patient was seen, as this information can be updated by other users. Medical History (Updated 03/11/25 @ 18:14 by Chava Mai MD) Insomnia THEA (generalized anxiety disorder) Restless leg syndrome Chronic kidney disease, stage 3a Peripheral vascular disease Schizoaffective disorder, bipolar type Hammer toe of right foot Hammer toe of left foot Bipolar 1 disorder Stenosis of carotid artery T2DM (type 2 diabetes mellitus) Renal disease HTN (hypertension), benign HLD (hyperlipidemia) Depression Cancer Atherosclerotic heart disease Anxiety Surgical History Hx of tonsillectomy H/O breast biopsy History of lumpectomy of left breast Family History Other Cancer Diabetes Social History (Updated 03/11/25 @ 16:26 by Jessi Allison RN) Smoking Status: Unknown if ever smoked alcohol intake: never substance use type: denies use current occupational status: retired Travel in the last 8 weeks?: None number of children: 0 Contact w/someone who lives/traveled outside [place] past 30 days?: No Exposure to someone with infectious disease in past 14 days?: No Do you have a fever (greater than 100.4 F or 38 C)?: No Have you tested positive for COVID-19?: No Exposed to someone with COVID-19 in past 14 days?: No Do you have a sore throat?: No Do you have a cough?: No Do you have any weakness?: No Are you experiencing any nausea/vomitting?: Yes Do you have any diarrhea?: No Are you experiencing any unusual bleeding?: No Do you have any muscle aches/pain?: No Do you have any abdominal pain?: No Are you experiencing loss of taste or smell?: No Other Medical History Have you received the Flu Vaccine for this season: No Have you received the Pneumonia Vaccine: Yes Meds Home Medications and Allergies Home Medications ?Medication ?Instructions ?Recorded ?Confirmed ?Type aspirin 81 mg tablet,delayed 81 mg PO DAILY 10/26/23 03/11/25 History release carvedilol 25 mg tablet (Coreg) 25 mg PO BID #60 tabs 04/18/24 03/11/25 Rx divalproex 500 mg tablet,delayed 500 mg PO TID 04/18/24 03/11/25 History release lisinopril 20 mg tablet 10 mg PO BID 04/18/24 03/11/25 History loratadine 10 mg tablet 10 mg PO DAILY 04/18/24 03/11/25 History docusate sodium 100 mg tablet 100 mg PO BID 06/13/24 03/11/25 History (Stool Softener) torsemide 20 mg tablet 40 mg PO DAILY 06/13/24 03/11/25 History trazodone 50 mg tablet 50 mg PO HS 06/13/24 03/11/25 History pen needle, diabetic, safety 30 #100 ea 12/11/24 12/18/24 History gauge x 3/16 (AutoShield Duo Pen Needle) rosuvastatin 40 mg tablet 40 mg PO HS 12/11/24 03/11/25 History acetaminophen 500 mg capsule 500 mg PO Q6H PRN pain 12/18/24 03/11/25 History latanoprost 0.005 % eye drops 1 drp ophthalmic (eye) HS 12/18/24 03/11/25 History polyethylene glycol 3350 17 17 g PO DAILY 12/18/24 03/11/25 History gram/dose oral powder (Miralax) calcium citrate 500 mg PO TID 03/11/25 03/11/25 History empagliflozin 25 mg tablet 25 mg PO DAILY 03/11/25 03/11/25 History (Jardiance) insulin aspart U-100 100 unit/mL 8 unit SQ TID 03/11/25 03/11/25 History (3 mL) subcutaneous pen insulin degludec 100 unit/mL (3 28 unit SQ DAILY 03/11/25 03/11/25 History mL) subcutaneous pen multivitamin 1 tab PO DAILY 03/11/25 03/11/25 History potassium chloride 10 mEq 20 meq PO DAILY 03/11/25 03/11/25 History tablet,extended release risperidone 2 mg tablet (Risperdal) 2 mg PO BID 03/11/25 03/11/25 History timolol maleate 0.5 % once daily 1 drp ophthalmic (eye) DAILY 03/11/25 03/11/25 History eye drops New Prescriptions to Start Prescriptions: Allergies Allergy/AdvReac Type Severity Reaction Status Date / Time No Known Allergies Allergy Verified 03/11/25 16:01 Exam Data for Last 24 hours Vital signs and Labs for Last 24 Hours: Temp Pulse Resp BP Pulse Ox O2 Del Method O2 Flow Rate 97.7 F 80 20 110/72 95 Vapotherm 30 03/11/25 15:36 03/11/25 15:28 03/11/25 15:28 03/11/25 15:28 03/11/25 15:14 03/11/25 15:28 03/11/25 15:14 FiO2 65 03/11/25 15:14 Laboratory Results - last 24 hr 03/11/25 11:30: WBC 5.3, RBC 3.56 L, Hgb 11.4 L, Hct 34.1 L, MCV 95.8, MCH 32.0 H, MCHC 33.4, RDW 13.4, Plt Count 92 L, MPV 9.2, Neut % (Auto) 63.9, Lymph % (Auto) 21.1, Bailey % (Auto) 13.3 H, Eos % (Auto) 0.9, Baso % (Auto) 0.2, Neut # (Auto) 3.4, Lymph # (Auto) 1.1, Bailey # (Auto) 0.7, Eos # (Auto) 0.1, Baso # (Auto) 0.0, PT 12.3, INR 1.12 H, VBG pH 7.32, VBG pCO2 71.5 H, VBG pO2 40.4 H, VBG HCO3 35.8 H, VBG Total CO2 38.0 H, VBG O2 Saturation 71.0 H, VBG Base Excess 9.6 H, VBG Lactic Acid 2.7 H, Sodium 131 L, Potassium 3.9, Chloride 98, Carbon Dioxide 32 H, Anion Gap 4.9 L, BUN 28 H, Creatinine 1.30 H, Estimated Creat Clear 52, Estimated GFR 40 L, Est GFR ( Amer) 48 L, Glucose 112 H, Lactate 1.6, Calcium 9.1, Magnesium 2.0, Total Bilirubin 0.6, AST 31, ALT 14, Alkaline Phosphatase 70, Troponin I 0.01, C-Reactive Protein 6.1 H, NT-Pro-B Natriuret Pep 2520 H, Total Protein 6.0 L, Albumin 2.8 L, Globulin 3.2, Albumin/Globulin Ratio 0.9 L, Lipase 45, Procalcitonin 0.121 I & O for Last 24 hours: Intake & Output 03/08/25 03/09/25 03/10/25 03/11/25 23:59 23:59 23:59 23:59 Intake Total 350 / 350 Balance 350 / 350 Weight 86.183 kg Constitutional Constitutional: no acute distress and chronically ill appearing Comments: Encephalopathic., Arousable but somnolent. *Routine HEENT Exam Head: Present normocephalic Eye: Present EOMI and PERRL ENT: Present mucous membranes moist *Routine Neck Exam Neck: Present supple; Absent lymphadenopathy *Routine Respiratory Exam Respiratory: Present CTA bilaterally *Routine Cardiovascular Exam Cardiovascular: Present RRR *Routine Abdominal Exam Abdominal: Present soft and normoactive bowel sounds; Absent tenderness *Routine Rectal Exam Rectal:: deferred *Routine Genitalia Exam Genitalia:: deferred *Routine Extremities Exam Extremities: Present edema; Absent cyanosis or clubbing *Routine Skin Exam Skin: Present warm; Absent rash *Routine Neurological Exam Neurological: Present alert Assessment and Plan *Assessment and plan (1) Seizure-like activity: Status: Acute Category: Medical Code(s): R56.9 - Unspecified convulsions (2) Aspiration pneumonitis: Status: Acute Category: Medical Code(s): J69.0 - Pneumonitis due to inhalation of food and vomit (3) Hypercapnic respiratory failure: Status: Acute Category: Medical Code(s): J96.92 - Respiratory failure, unspecified with hypercapnia Plan Bea Escobar is a 74-year-old female with a medical history significant for mood disorder, venous insufficiency, type 2 diabetes, hypertension who presents from long-term due to concerns of seizure activity and subsequent unresponsiveness, hypoxia. Patient is encephalopathic at this time and not responding to questions, so history was obtained via chart review. Nursing staff apparently found patient to have seizure-like activity, with post episode muscle rigidity, hypoxia requiring nonrebreather 15 L. She was brought to the ER and was escalated to Vapotherm 35 L 70% as she was saturating 86% on nonrebreather 15 L. Workup in the ED significant for WBC 5.3, VBG pH 7.32 pCO2 71.5, lactic acid 2.7, CRP 6.1, BNP 2520. CTA chest revealed multifocal pneumonia greatest in the left lower lobe, and left breast mass favoring postoperative fluid collection. CT abdomen significant for rectosigmoid fecal impaction and cholelithiasis. She was given Zosyn, vancomycin. Given this presentation ED provider discussed case with me and I decided to admit patient for further evaluation management. #Acute metabolic encephalopathy #Suspected aspiration pneumonitis #Acute hypoxic respiratory failure #Compensated hypercapnic respiratory failure ? Patient presented with after seizure-like activity at long-term, found to be mildly responsive and hypoxic. Initially requiring Vapotherm 30 L 75%, though saturating 98% on my evaluation. ? CTA suggestive of multifocal pneumonia, greatest in the left lower lobe. Initial WBC 5.3, CRP 6.1 and procalcitonin normal. ? Though this likely represents aspiration pneumonitis at this time given normal WBC and inflammatory markers, will treat empirically with antibiotics given critical hypoxic respiratory failure. ? Initial VBG pH 7.32 pCO2 71.5, will repeat VBG. May need continuous albuterol versus BiPAP if no improvement with DuoNebs. ? Continue Zosyn 3.375 g every 8 hours. ? Started DuoNebs every 6 hours. ? Try to wean to nasal cannula tonight. ? Follow-up sputum, blood cultures. ? Follow-up morning VBG. #Seizure-like activity ? Patient is quite encephalopathic, arousable but not following commands. Will need to rule out ongoing seizure. ? Follow-up spot EEG. ? Started IV Keppra 1000 mg twice daily. ? IV Valium 5 mg as needed for seizures. ? Aspiration, seizure precautions. #Suspected mood disorder ? Hold home Depakote, risperidone due to encephalopathy. Follow-up Depakote level. #Type 2 diabetes ? Follow-up hemoglobin A1c. ? LDSSI, ACHS glucose checks. #Hypertension ? Continue home medications once appropriate. BP stable at this time. #Venous insufficiency ? Follows with cardiology, continue home torsemide 40 mg daily. DNR/DNI DVT prophylaxis: Lovenox 40 mg Home medications: Holding as above.
[2025-03-11 16:44] LABS: Adenovirus,PCR Not Detected (NotDetected); Chlamydophila Pneumoniae, PCR Not Detected (NotDetected); Coronavirus 19, PCR Not Detected (NotDetected); Coronovirus HKU1,PCR Not Detected (NotDetected); Influenza A, PCR Not Detected (NotDetected); Influenza AH1, 2009 Not Detected (NotDetected); Influenza AH1, PCR Not Detected (NotDetected); Influenza AH3,PCR Not Detected (NotDetected); Influenza B, PCR Not Detected (NotDetected); Mycoplasma Pneumoniae, PCR Not Detected (NotDetected); Parainfluenza 1, PCR Not Detected (NotDetected); Parainfluenza 2, PCR Not Detected (NotDetected); Parainfluenza 3, PCR Not Detected (NotDetected); Parainfluenza 4, PCR Not Detected (NotDetected)
[2025-03-11 17:43] LABS: Lactic Acid Follow Up (RFLX 1) 1.5 mmol/L (0.7-2.1)
[2025-03-11 18:02] LABS: VBG HCO3 24.8 mmol/L (23-30); VBG PCO2 37.9 mmol/L (35-51); VBG PH 7.43 mmol/L (7.31-7.41); VBG PO2 119.3 mmol/L (28-40)
[2025-03-11 18:04] LABS: Lactate Venous 2.2 mmol/L (0.4-2.0)
[2025-03-11 18:10] LABS: Troponin I 0.01 ng/ml (0.00-0.034)
[2025-03-11] MEDS: IPRATROPIUM/ALBUTEROL 3 ML NEB IH (19:02)
[2025-03-11] MEDS: PIPERCILLIN/TAZO 3.375 GM in 0.9 % SODIUM CHLORIDE 50 ML IV (19:40)
[2025-03-11] MEDS: levETIRAcetam 1,000 MG in 0.9 % SODIUM CHLORIDE 100 ML 220 MG IV (19:49)
[2025-03-11 21:18] LABS: Ammonia < 9 umol/L (9-30)
[2025-03-11] MEDS: GLYCERIN ADULT 3GM SUPP 3 GM RC (22:21)
[2025-03-11 22:27] LABS: Troponin I < 0.01 ng/ml (0.00-0.034)
[2025-03-12] VITALS (65 sets, daily range): BP systolic 61–138; BP diastolic 27–87; PULSE 64–86; RESP 11–23; TEMP 36.5–36.9; O2SAT 90–100; BMI 31.0
[2025-03-12] MEDS: IPRATROPIUM/ALBUTEROL 3 ML NEB IH ×5 (00:06→23:59)
[2025-03-12] MEDS: SODIUM CHLORIDE 3% 15ML NEB 3 ML IH ×2 (00:06→11:34)
[2025-03-12] MEDS: PIPERCILLIN/TAZO 3.375 GM in 0.9 % SODIUM CHLORIDE 50 ML IV ×3 (05:12→21:08)
[2025-03-12 05:13] LABS: Lactate Venous 1.7 mmol/L (0.4-2.0); VBG HCO3 28.2 mmol/L (23-30); VBG PCO2 42.7 mmol/L (35-51); VBG PH 7.44 mmol/L (7.31-7.41); VBG PO2 69.9 mmol/L (28-40)
--- NOTE | 2025-03-12 05:27 | PC.NURSE ---
Pt has rested well t/o the night and has had no complaints. Pt is alert to voice, and is oriented to self. Pt is difficult to understand d/t mumbled speech. Appears weak/lethargic. No seizures noted. Remains in seizure precautions. Remains on vapotherm 20L 40%. States she feels better than she did. Pt has been turned and repositioned Q2 hours this shift with repositioning wedges. Foam dressing in place to coccyx, and was changed twice this shift following 2 BM's. Stage 2 wound noted to pts coccyx. Pillows used under pts feet and in between knees. Pt drank small amount of ensure and water, and tolerated well.
[2025-03-12 05:42] LABS: Hematocrit 31.3 % (37.0-47.0); Hemoglobin 10.7 g/dL (12.2-16.2); Immature Granulocytes % 0.4 %; Mean Corpuscular HGB Conc 34.2 g/dL (31.8-35.4); Mean Corpuscular Hemoglobin 32.2 pg (27.0-31.2); Mean Corpuscular Volume 94.3 fl (81-99); Nucleated Red Blood Cells % 0 %; Platelet Count 70 K/mm3 (142-424); Red Blood Count 3.32 M/mm3 (4.20-5.40); Red Cell Distribution Width-SD 46.5 fL; White Blood Count 13.4 K/mm3 (4.8-10.8)
[2025-03-12 06:01] LABS: Alanine Aminotransferase 12 U/L (12-78); Albumin Level 2.8 g/dl (3.5-5.0); Albumin/Globulin Ratio 0.9 (1.1-1.8); Alkaline Phosphatase 65 U/L (38-126); Anion Gap 8.4 mEq/L (5-15); Aspartate Amino Transferase 23 U/L (14-36); Bilirubin,Total 0.4 mg/dl (0.2-1.3); Blood Urea Nitrogen 29 mg/dl (7-17); Calcium 8.9 mg/dl (8.4-10.2); Carbon Dioxide 29 mmol/L (22.0-30.0); Chloride 99 mmol/L (98-107); Creatinine Clearance Estimated 44 mL/min (50-200); Creatinine,Serum 1.50 mg/dl (0.52-1.04); Estimated Glomerular Filt Rate 34 ml/min (>60); GFR (African American) 41 ML/MIN (>60); Globulin 3.1 g/dL (1.3-3.2); Glucose 139 mg/dl (74-100); Magnesium 2.0 mg/dl (1.6-2.3); Potassium 4.4 mmoL/L (3.5-5.1); Sodium 132 mmol/L (136-145); Total Protein,Serum 5.9 g/dl (6.3-8.2)
[2025-03-12 06:21] LABS: C-Reactive Protein 108.3 mg/L (0-4)
[2025-03-12 06:33] LABS: Free T4 (Free Thyroxine) 0.80 ng/dl (0.78-2.19)
[2025-03-12 06:47] LABS: Thyroid Stimulating Hormone 2.10 uIU/mL (0.465-4.68)
[2025-03-12] MEDS: levETIRAcetam 1,000 MG in 0.9 % SODIUM CHLORIDE 100 ML 220 MG IV (07:25)
--- NOTE | 2025-03-12 07:59 | SW/DCPLANNER ---
Addendum entered by Marissa Stover 03/14/25 08:41: Patient will return [facility] level of care. Addendum entered by Marissa Stover 03/14/25 08:39: I have updated Barb elmore/ [facility] that patient will return today. Original Note: Patient currently resides at [facility] level of care. Updated patient information has been faxed to Barb elmore/ [facility]. Per Barb if patient has qualifying stay they would prefer to skill her once she returns. CM will continue to follow up. Discharge date is unknown at this time.
--- NOTE | 2025-03-12 08:27 | P.CONPHA_ITS ---
Pharmacy Intervention Comments: Home medication list verified using list from skilled nursing MAR
--- NOTE | 2025-03-12 08:27 | HMH.PHAINT1 ---
Pharmacy Intervention Comments: Home medication list verified using list from [facility]
--- NOTE | 2025-03-12 08:55 | EXP.ACUTE.PN ---
Subjective *Date: 03/12/25 *Time: 13:18 Interval history: Patient following commands making eye contact. Does appear confused still today however. Attempted to obtain EEG this morning during rounds, patient unfortunately not cooperative or able to tolerate wearing EEG. Stable to leave oxygen. Blood pressure softer this morning. May necessitate pressors if continues to soften. Afebrile. No further nausea or vomiting. Medical Exam Vital signs and Labs for Last 24 Hours: Vital Signs Temp Pulse Pulse Resp BP BP Pulse Ox 03/12/25 08:51 93 L 03/12/25 08:40 03/12/25 08:00 96 03/12/25 08:00 75 118/48 L 96 03/12/25 07:00 03/12/25 06:30 76 03/12/25 06:30 77 03/12/25 06:30 91 L 03/12/25 06:00 79 21 105/43 L 93 L 03/12/25 05:37 03/12/25 05:00 75 17 98/47 L 93 L 03/12/25 05:00 03/12/25 04:00 82 15 96/55 L 96 03/12/25 04:00 80 03/12/25 03:00 03/12/25 02:00 78 21 107/56 L 93 L 03/12/25 01:01 79 15 110/63 98 03/12/25 01:00 03/12/25 00:59 03/12/25 00:58 86 03/12/25 00:57 77 03/12/25 00:00 77 03/12/25 00:00 97.9 F 74 17 103/48 L 92 L 03/11/25 23:00 03/11/25 22:00 79 17 103/57 L 95 03/11/25 21:00 03/11/25 20:00 81 03/11/25 20:00 03/11/25 19:30 79 03/11/25 19:30 80 03/11/25 19:28 94 L 03/11/25 19:04 03/11/25 19:00 03/11/25 18:54 18 99 03/11/25 18:00 77 19 97/48 L 95 03/11/25 17:00 77 13 104/63 L 98 03/11/25 16:00 73 23 122/61 99 03/11/25 15:36 97.7 F 03/11/25 15:28 98.2 F 80 20 110/72 03/11/25 15:16 97.9 F 73 20 117/82 100 03/11/25 15:14 95 03/11/25 13:05 95 03/11/25 11:45 96 03/11/25 11:20 96 03/11/25 11:06 97.6 F 66 36 H 84/38 L 86 L O2 Del Method O2 Flow Rate FiO2 03/12/25 08:51 Nasal Cannula 2 03/12/25 08:40 Nasal Cannula 2 03/12/25 08:00 Vapotherm 20 40 03/12/25 08:00 Vapotherm 03/12/25 07:00 Vapotherm 03/12/25 06:30 03/12/25 06:30 03/12/25 06:30 Vapotherm 20 40 03/12/25 06:00 Vapotherm 20 03/12/25 05:37 Vapotherm 20 40 03/12/25 05:00 Vapotherm 20 40 03/12/25 05:00 Vapotherm 20 03/12/25 04:00 Vapotherm 20 40 03/12/25 04:00 03/12/25 03:00 Vapotherm 20 03/12/25 02:00 Vapotherm 20 03/12/25 01:01 03/12/25 01:00 Vapotherm 20 03/12/25 00:59 Vapotherm 20 40 03/12/25 00:58 03/12/25 00:57 03/12/25 00:00 03/12/25 00:00 Vapotherm 20 40 03/11/25 23:00 Vapotherm 20 03/11/25 22:00 Vapotherm 20 40 03/11/25 21:00 Vapotherm 20 03/11/25 20:00 03/11/25 20:00 Vapotherm 20 40 03/11/25 19:30 03/11/25 19:30 03/11/25 19:28 Vapotherm 20 40 03/11/25 19:04 Vapotherm 20 40 03/11/25 19:00 Vapotherm 20 03/11/25 18:54 Vapotherm 20 40 03/11/25 18:00 Vapotherm 20 50 03/11/25 17:00 Vapotherm 30 65 03/11/25 16:00 Vapotherm 30 65 03/11/25 15:36 03/11/25 15:28 Vapotherm 03/11/25 15:16 Vapotherm 30 65 03/11/25 15:14 Vapotherm 30 65 03/11/25 13:05 Vapotherm 35 75 03/11/25 11:45 Vapotherm 35 70 03/11/25 11:20 Vapotherm 35 70 03/11/25 11:06 Non-Rebreather 15 Intake and Output 03/11/25 03/12/25 03/12/25 23:59 07:59 15:59 Intake Total 410 / 760 50 / 160 110 / 160 Output Total 200 / 200 700 / 900 200 / 900 Balance 210 / 560 -650 / -740 -90 / -740 Intake: Intake, Oral Amount 250 / 250 Intake, Total IV Amount 160 / 510 50 / 160 110 / 160 Pipercillin/Tazo 3.375 gm In 0. 50 / 50 50 / 50 9 % Sodium Chloride 50 ml @ 100 mls/hr IV Q8H [facility] Rx#:[id number] levETIRAcetam 1,000 mg In 0.9 % 110 / 110 110 / 110 Sodium Chloride 100 ml @ 220 mls/hr IV Q12H [facility] Rx#:[id number] Output: Output, Urine Amount 200 / 200 700 / 900 200 / 900 Other: Number of Unmeasured Voids 1 0 Number of Bowel Movements 1 2 Weight 84.6 kg Patient Weight 03/12/25 23:59 Weight 84.6 kg Laboratory Results - last 24 hr 03/11/25 11:30: WBC 5.3, RBC 3.56 L, Hgb 11.4 L, Hct 34.1 L, MCV 95.8, MCH 32.0 H, MCHC 33.4, RDW 13.4, Plt Count 92 L, MPV 9.2, Neut % (Auto) 63.9, Lymph % (Auto) 21.1, [place] % (Auto) 13.3 H, Eos % (Auto) 0.9, Baso % (Auto) 0.2, Neut # (Auto) 3.4, Lymph # (Auto) 1.1, [place] # (Auto) 0.7, Eos # (Auto) 0.1, Baso # (Auto) 0.0, PT 12.3, INR 1.12 H, VBG pH 7.32, VBG pCO2 71.5 H, VBG pO2 40.4 H, VBG HCO3 35.8 H, VBG Total CO2 38.0 H, VBG O2 Saturation 71.0 H, VBG Base Excess 9.6 H, VBG Lactic Acid 2.7 H, Sodium 131 L, Potassium 3.9, Chloride 98, Carbon Dioxide 32 H, Anion Gap 4.9 L, BUN 28 H, Creatinine 1.30 H, Estimated Creat Clear 52, Estimated GFR 40 L, Est GFR ( Amer) 48 L, Glucose 112 H, Lactate 1.6, Calcium 9.1, Magnesium 2.0, Total Bilirubin 0.6, AST 31, ALT 14, Alkaline Phosphatase 70, Troponin I 0.01, C-Reactive Protein 6.1 H, NT-Pro-B Natriuret Pep 2520 H, Total Protein 6.0 L, Albumin 2.8 L, Globulin 3.2, Albumin/Globulin Ratio 0.9 L, Lipase 45, Procalcitonin 0.121 03/11/25 15:55: Chlamy pneumoniae PCR Not detected, Adenovirus (PCR) Not detected, B. pertussis DNA (PCR) Not detected, Coronavirus OC43 (PCR) Not detected, Coronavirus HKU1 (PCR) Not detected, Coronavirus 229E (PCR) Not detected, SARS-CoV-2 (PCR) Not detected, Coronavirus NL63 (PCR) Not detected, Human Metapneumovir PCR Not detected, Influenza A (H1) PCR Not detected, Influ A (H1N1/09) PCR Not detected, Influenza A (H3) PCR Not detected, Influenza Type A (PCR) Not detected, Influenza Type B (PCR) Not detected, M. pneumoniae (PCR) Not detected, Parainfluenza 1 (PCR) Not detected, Parainfluenza 2 (PCR) Not detected, Parainfluenza 3 (PCR) Not detected, Parainfluenza 4 (PCR) Not detected, RSV (PCR) Not detected, Entero/Rhino (PCR) Not detected 03/11/25 17:18: Lactate 1.5, Troponin I 0.01 03/11/25 17:44: VBG pH 7.43 H, VBG pCO2 37.9, VBG pO2 119.3 H, VBG HCO3 24.8, VBG Total CO2 26.0, VBG O2 Saturation 98.7 H, VBG Base Excess 0.6, VBG Lactic Acid 2.2 H 03/11/25 20:49: Ammonia < 9 L 03/11/25 21:46: Troponin I < 0.01 03/12/25 04:58: WBC 13.4 H D, RBC 3.32 L, Hgb 10.7 L, Hct 31.3 L, MCV 94.3, MCH 32.2 H, MCHC 34.2, RDW 13.4, Plt Count 70 L, MPV 9.0, Neut % (Auto) 79.4, Lymph % (Auto) 9.2 L, [place] % (Auto) 10.7 H, Eos % (Auto) 0.1, Baso % (Auto) 0.2, Neut # (Auto) 10.6 H, Lymph # (Auto) 1.2, [place] # (Auto) 1.4 H, Eos # (Auto) 0.0, Baso # (Auto) 0.0, VBG pH 7.44 H, VBG pCO2 42.7, VBG pO2 69.9 H, VBG HCO3 28.2, VBG Total CO2 29.5 H, VBG O2 Saturation 94.9 H, VBG Base Excess 4.0 H, VBG Lactic Acid 1.7, Sodium 132 L, Potassium 4.4, Chloride 99, Carbon Dioxide 29, Anion Gap 8.4, BUN 29 H, Creatinine 1.50 H, Estimated Creat Clear 44, Estimated GFR 34 L, Est GFR ( Amer) 41 L, Glucose 139 H D, Calcium 8.9, Magnesium 2.0, Total Bilirubin 0.4, AST 23 D, ALT 12, Alkaline Phosphatase 65, C-Reactive Protein 108.3 H, Total Protein 5.9 L, Albumin 2.8 L, Globulin 3.1, Albumin/Globulin Ratio 0.9 L, TSH 2.10, Free T4 0.80 I & O for Labs for Last 24 Hours: Intake & Output 03/09/25 03/10/25 03/11/25 03/12/25 23:59 23:59 23:59 23:59 Intake Total 760 / 760 160 / 160 Output Total 200 / 200 900 / 900 Balance 560 / 560 -740 / -740 Weight 86.183 kg 84.6 kg Constitutional: Present mild distress, obese, chronically ill appearing and cooperative Head: Present atraumatic and normocephalic Respiratory: Present crackles and normal respiratory effort; Absent rhonchi or wheezes Cardiac: Present Reg Rate and Rhythm GI: Present soft and normal bowel sounds; Absent distention or tenderness Extremities: Present normal inspection and full ROM; Absent tenderness or edema Skin: Present intact; Absent erythema Neuro: Present Grossly Intact, alert, awake and moves all extremities Comment:: Oriented to self only. Appears confused Assessment and Plan *Assessment and plan (1) Seizure-like activity: Status: Acute Category: Medical Code(s): R56.9 - Unspecified convulsions (2) Aspiration pneumonitis: Status: Acute Category: Medical Code(s): J69.0 - Pneumonitis due to inhalation of food and vomit (3) Hypercapnic respiratory failure: Status: Acute Category: Medical Code(s): J96.92 - Respiratory failure, unspecified with hypercapnia (4) Metabolic encephalopathy: Status: Acute Category: Medical Code(s): G93.41 - Metabolic encephalopathy (5) T2DM (type 2 diabetes mellitus): Status: Acute Qualifiers: Diabetes mellitus care home insulin use: without care home use Diabetes mellitus complication status: with other specified complication Qualified Code(s): E11.69 - Type 2 diabetes mellitus with other specified complication Category: Medical Code(s): E11.9 - Type 2 diabetes mellitus without complications (6) HLD (hyperlipidemia): Status: Acute Qualifiers: Hyperlipidemia type: unspecified Qualified Code(s): E78.5 - Hyperlipidemia, unspecified Category: Medical Code(s): E78.5 - Hyperlipidemia, unspecified (7) HTN (hypertension), benign: Status: Acute Category: Medical Code(s): I10 - Essential (primary) hypertension Plan Bea Escobar is a 74-year-old female with a medical history significant for mood disorder, venous insufficiency, type 2 diabetes, hypertension who presents from skilled nursing due to concerns of seizure activity and subsequent unresponsiveness, hypoxia. Patient is encephalopathic at this time and not responding to questions, so history was obtained via chart review. Nursing staff apparently found patient to have seizure-like activity, with post episode muscle rigidity, hypoxia requiring nonrebreather 15 L. She was brought to the ER and was escalated to Vapotherm 35 L 70% as she was saturating 86% on nonrebreather 15 L. Workup in the ED significant for WBC 5.3, VBG pH 7.32 pCO2 71.5, lactic acid 2.7, CRP 6.1, BNP 2520. CTA chest revealed multifocal pneumonia greatest in the left lower lobe, and left breast mass favoring postoperative fluid collection. CT abdomen significant for rectosigmoid fecal impaction and cholelithiasis. She was given Zosyn, vancomycin. Given this presentation ED provider discussed case with me and I decided to admit patient for further evaluation management. Continues to require patient management. Blood pressure softer today, necessitated initiation of Levophed. Continues to require ICU level care. Problems addressed as follows: #Acute metabolic encephalopathy #Suspected aspiration pneumonitis versus pneumonia #Acute hypoxic respiratory failure #Compensated hypercapnic respiratory failure Hypotension ? Patient presented with after seizure-like activity at skilled nursing, found to be mildly responsive and hypoxic. Initially requiring Vapotherm 30 L 75%, though saturating 98% on my evaluation. ? CTA suggestive of multifocal pneumonia, greatest in the left lower lobe. White count jumped to 13.4, CRP 108. Initial WBC 5.3, CRP 6.1 and procalcitonin normal. -Continue broad-spectrum antibiotics with Zosyn 3.375 g every 8 hours. Will add vancomycin given patient's hypotension. - Initial VBG pH 7.32 pCO2 71.5, will repeat VBG, will Vapotherm overnight at 20 L, 40%. On nasal cannula oxygen 2 L this morning. Goal sats greater 90%. ? DuoNebs every 6 hours. ? Follow-up sputum, blood cultures. ? Follow-up morning VBG. - respiratory panel negative - Initiate norepinephrine, goal MAP greater than 65. - Repeat CBC, CMP, magnesium ordered for the morning #Seizure-like activity ? Patient is quite encephalopathic, arousable but not following commands. Will need to rule out ongoing seizure. ? 50 to EEG, unable to obtain. - Decrease Keppra to 500 mg twice daily ? IV Valium 5 mg as needed for seizures. ? Aspiration, seizure precautions. #Suspected mood disorder ? Depakote level still pending, send out lab - Holding home medications for mood including Risperdal, Depakote, and trazodone due to encephalopathy #Type 2 diabetes ? A1c well-controlled at 5.6. Holding home insulin regimen. Continue sliding scale insulin with fingersticks ACHS #Hypertension ? Holding home blood pressure regimen including carvedilol, lisinopril, torsemide. #Venous insufficiency ? Follows with cardiology, continue home torsemide 40 mg daily. DNR/DNI DVT prophylaxis: Lovenox 40 mg Home medications: Holding as above. ICU/Critical care attestation This patient is critically ill with 35 minutes devoted solely to this patient managing life/organ supporting interventions that required physician assessment. This includes time spent making adjustments in ventilator settings, IV fluid administration, titration of pressors, adjustments of medications, discussion of patient with consultants and other care providers as well as updating patient and/or family (if patient by virtue of his/her condition is unable to participate in decision making). This does not include time spent performing separately billed procedures. Time is not concurrent with that of other providers.
--- NOTE | 2025-03-12 10:00 | HMH.OTEV ---
OT Evaluation Rehab OT IP Evaluation Start: 03/11/25 16:26 Freq: ONCE Status: Active Protocol: Document 03/12/25 09:55 [facility]ILLHarsha (Rec: 03/12/25 10:00 [id number]) Rehab OT IP Assessment Subjective History Pt oriented x 3 on arrival. Pt agreeable to engage in therapy evaluation. Pt admitted on 03/11/25 due to PNA and sepsis. History and physical: Bea Escobar is a 74-year-old female with a medical history significant for mood disorder, with insufficiency, type 2 diabetes, hypertension who presents from senior living due to concerns of seizure activity and subsequent unresponsiveness, hypoxia. Patient is encephalopathic at this time and not responding to questions, so history was obtained via chart review. Nursing staff apparently found patient to have seizure-like activity, with post episode muscle rigidity, hypoxia requiring nonrebreather 15 L. She was brought to the ER and was escalated to Vapotherm 35 L 70% as she was saturating 86% on nonrebreather 15 L. Workup in the ED significant for WBC 5.3, ABG pH 7.32 pCO2 71.5, lactic acid 2.7, CRP 6.1, BNP 2520. CTA chest revealed multifocal pneumonia greatest in the left lower lobe, and left breast mass favoring postoperative fluid collection. CT abdomen significant for rectosigmoid fecal impaction and cholelithiasis. She was given Zosyn, vancomycin. Given this presentation ED provider discussed case with me and I decided to admit patient for further evaluation management. Subjective Pt able to reports to therapy [facility] the [facility]. Pt also reports she was requiring assistance with ADLs. Information provided was limited due to increased confusion and lethargy. Objective Patient Orientation Person,Place,Birthday Right Upper Mod Limitation 50% Extremity Gross ROM Left Upper Extremity Mod Limitation 50% Gross ROM Shoulder ROM Muscle Weakness Limitations Elbow ROM Muscle Weakness Limitations Wrist Limitations of Muscle Weakness Range of Motion Bed Mobility bed mobility-scooting,bed mobility - supine/sit,bed mobility - rolling Assist Level Maximum x 2 (75% assist) Rehab OT IP prob,goals,plan Problems Date of Evaluation: 03/12/25 OT IP Problems Bed Mobility,Transfers,Balance,Self care,Safety Rehab Potential Rehab Potential Good Equipment Needs Assistive Devices Rolling / Wheeled Walker Plan OT intervention Plan Bed Mobility,Transfers,Balance,Self care,Safety, Therapeutic Exercise OT Plan Frequency Daily Duration LOS Discharge Goals Bed Mobility Ability Assistance x1 Sit to Stand Chair Maximum x 1 (75% assist) Transfer Ability Chair Transfer Maximum x 1 (75% assist) Ability Chair Transfer Stand Pivot Technique Chair Transfer Rolling Walker Assistive Devices Lower Body Dressing Maximum Assistance Ability Upper Body Dressing Moderate Assistance Ability Performing Toilet Moderate Assistance Hygiene Ability Overall Commode/ Maximum Assistance Toilet Transfer Ability Commode/Toilet Stand Pivot Transfer Technique Discharge Plan OT Discharge Plan Pt will continue to be seen for OT services while at [facility]. Pt would benefit most from short term rehab once she returns back to SNF. Continued skilled therapy is important in order for patient to improve strength, safety, endurance, ADL independence, and functional transfers to reach PLOF. Eval Complexity Eval Charge Codes 84262 - Moderate Complexity PHYSICIAN CERTIFICATION: I certify the specified therapy services for Bea Escobar are required, authorized, and reviewed every 30 days.
--- NOTE | 2025-03-12 10:27 | HMH.PTEV ---
Physical Therapy Evaluation Rehab PT IP Evaluation Start: 03/11/25 19:04 Freq: ONCE Status: Active Protocol: Document 03/12/25 10:22 ENRIKE (Rec: 03/12/25 10:27 ENRIKE [id number]) Subjective/History History History Per H&P: Bea Escobar is a 74-year-old female with a medical history significant for mood disorder, with insufficiency, type 2 diabetes, hypertension who presents from [facility] due to concerns of seizure activity and subsequent unresponsiveness, hypoxia. Patient is encephalopathic at this time and not responding to questions, so history was obtained via chart review. Nursing staff apparently found patient to have seizure-like activity, with post episode muscle rigidity, hypoxia requiring nonrebreather 15 L. She was brought to the ER and was escalated to Vapotherm 35 L 70% as she was saturating 86% on nonrebreather 15 L. Workup in the ED significant for WBC 5.3, ABG pH 7.32 pCO2 71.5, lactic acid 2.7, CRP 6.1, BNP 2520. CTA chest revealed multifocal pneumonia greatest in the left lower lobe, and left breast mass favoring postoperative fluid collection. CT abdomen significant for rectosigmoid fecal impaction and cholelithiasis. She was given Zosyn, vancomycin. Given this presentation ED provider discussed case with me and I decided to admit patient for further evaluation management. Subjective Subjective Pt reports name and says she lives in a [facility]. Pt reports she uses a w/c with assistance. Pt confused, confirm history with CM. [facility] How much help from another person do you currently need... Turning from your A lot back to your side while in a flat bed without using bedrails? Moving from lying on A lot back to sitting on the side of a flat bed without using bedrails? Moving to and from a A lot bed to a chair ( including a wheelchair)? Standing up from a A lot chair using your arms? (e.g., wheelchair, bedside chair) Walking in hospital A lot room? Climbing 3-5 steps A lot with a railing? Mobility Score 12 Mobility Level [facility] Mobility 4 Move to chair/commode Mobility Calculator Rehab PT IP Eval Objective Appearance Patient Behavior Appropriate,Cooperative Patient Orientation Person Difficulty following mild instructions Ambulation Patient Able to No Ambulate Balance Ability to Arise Unable Transfers Bed Transfer Ability Maximum x 2 (75% assist) Rehab PT IP prob,goals,plan Problems Date of Evaluation: 03/12/25 PT IP Problems Bed Mobility,Transfers,Gait,Balance,Self care,Safety Rehab Potential Rehab Potential Good Plan PT Intervention Plan Bed Mobility,Transfers,Gait,Balance,Self care,Safety, Therapeutic Exercise PT Plan Frequency Daily Duration LOS Discharge Goals Bed Transfer Ability Maximum x 1 (75% assist) Sit to Stand Chair Maximum x 2 (75% assist) Transfer Ability Discharge Plan PT Discharge Plan PT does not know what pt's baseline mobility is but pt presents with impaired functional mobility and would benefit from skilled PT while at [facility] to prevent further functional decline. Pt most appropriate to receive rehab upon d/c from [facility]. Eval Complexity Eval Charge Codes 52806 - Moderate Complexity PHYSICIAN CERTIFICATION: I certify the specified therapy services for Bea Escobar are required, authorized, and reviewed every 30 days.
[2025-03-12 10:28] LABS: Hemoglobin A1C 5.6 % (4.0-6.0)
--- NOTE | 2025-03-12 10:29 | PC.NURSE ---
Unable to perform EEG due to patient not following instructions. Patricia notified.
[2025-03-12] MEDS: LACTATED RINGERS 1000ML 500 ML IV (11:11)
[2025-03-12] MEDS: NOREPINEPHRINE BITARTRATE/D5W 8 MG/250 ML PLAST..BAG 3.75 MG IV (11:12)
--- NOTE | 2025-03-12 11:35 | PC.NURSE ---
Patients pressure dropped to 62/47, with repeat B/P reading of 61/32. Manual B/P check of 70/48. Hospitalist notified, and requested to start a levo-drip at this time. Started at 2mcg/min.
--- NOTE | 2025-03-12 11:46 | EXP.PHA.CONS ---
Pharmacy Consult Date: 03/12/25 Time: 11:46 Referring provider: DR. COTA Reason for Consult:: VANCOMYCIN DOSING Allergies Allergy/AdvReac Type Severity Reaction Status Date / Time No Known Allergies Allergy Verified 03/11/25 16:01 Home Medications ?Medication ?Instructions ?Recorded ?Confirmed ?Type aspirin 81 mg tablet,delayed 81 mg PO DAILY 10/26/23 03/12/25 History release carvedilol 25 mg tablet (Coreg) 25 mg PO BID #60 tabs 04/18/24 03/11/25 Rx divalproex 500 mg tablet,delayed 500 mg PO TID 04/18/24 03/11/25 History release loratadine 10 mg tablet 10 mg PO DAILY 04/18/24 03/12/25 History docusate sodium 100 mg tablet 100 mg PO BID 06/13/24 03/11/25 History (Stool Softener) torsemide 20 mg tablet 40 mg PO DAILY 06/13/24 03/11/25 History trazodone 50 mg tablet 50 mg PO HS 06/13/24 03/11/25 History pen needle, diabetic, safety 30 #100 ea 12/11/24 12/18/24 History gauge x 3/16 (AutoShield Duo Pen Needle) rosuvastatin 40 mg tablet 40 mg PO HS 12/11/24 03/11/25 History acetaminophen 500 mg capsule 500 mg PO Q6H PRN pain 12/18/24 03/11/25 History latanoprost 0.005 % eye drops 1 drp ophthalmic (eye) HS 12/18/24 03/12/25 History polyethylene glycol 3350 17 17 g PO DAILY 12/18/24 03/11/25 History gram/dose oral powder (Miralax) calcium citrate 500 mg PO TID 03/11/25 03/11/25 History empagliflozin 25 mg tablet 25 mg PO DAILY 03/11/25 03/12/25 History (Jardiance) insulin aspart U-100 100 unit/mL 8 unit SQ TID 03/11/25 03/12/25 History (3 mL) subcutaneous pen insulin degludec 100 unit/mL (3 28 unit SQ DAILY 03/11/25 03/12/25 History mL) subcutaneous pen potassium chloride 10 mEq 20 meq PO DAILY 03/11/25 03/12/25 History tablet,extended release risperidone 2 mg tablet (Risperdal) 2 mg PO BID 03/11/25 03/11/25 History timolol maleate 0.5 % once daily 1 drp ophthalmic (eye) DAILY 03/11/25 03/11/25 History eye drops lisinopril 10 mg tablet 10 mg PO BID 03/12/25 03/12/25 History multivitamin 1 tab PO DAILY 03/12/25 03/12/25 History New Prescriptions to Start Prescriptions: Height: 1.65 m Weight: 84.6 kg Laboratory Results:: Laboratory Results - last 24 hr 03/11/25 11:30: WBC 5.3, RBC 3.56 L, Hgb 11.4 L, Hct 34.1 L, MCV 95.8, MCH 32.0 H, MCHC 33.4, RDW 13.4, Plt Count 92 L, MPV 9.2, Neut % (Auto) 63.9, Lymph % (Auto) 21.1, [place] % (Auto) 13.3 H, Eos % (Auto) 0.9, Baso % (Auto) 0.2, Neut # (Auto) 3.4, Lymph # (Auto) 1.1, [place] # (Auto) 0.7, Eos # (Auto) 0.1, Baso # (Auto) 0.0, PT 12.3, INR 1.12 H, VBG pH 7.32, VBG pCO2 71.5 H, VBG pO2 40.4 H, VBG HCO3 35.8 H, VBG Total CO2 38.0 H, VBG O2 Saturation 71.0 H, VBG Base Excess 9.6 H, VBG Lactic Acid 2.7 H, Sodium 131 L, Potassium 3.9, Chloride 98, Carbon Dioxide 32 H, Anion Gap 4.9 L, BUN 28 H, Creatinine 1.30 H, Estimated Creat Clear 52, Estimated GFR 40 L, Est GFR ( Amer) 48 L, Glucose 112 H, Lactate 1.6, Calcium 9.1, Magnesium 2.0, Total Bilirubin 0.6, AST 31, ALT 14, Alkaline Phosphatase 70, Troponin I 0.01, C-Reactive Protein 6.1 H, NT-Pro-B Natriuret Pep 2520 H, Total Protein 6.0 L, Albumin 2.8 L, Globulin 3.2, Albumin/Globulin Ratio 0.9 L, Lipase 45, Procalcitonin 0.121 03/11/25 15:55: Chlamy pneumoniae PCR Not detected, Adenovirus (PCR) Not detected, B. pertussis DNA (PCR) Not detected, Coronavirus OC43 (PCR) Not detected, Coronavirus HKU1 (PCR) Not detected, Coronavirus 229E (PCR) Not detected, SARS-CoV-2 (PCR) Not detected, Coronavirus NL63 (PCR) Not detected, Human Metapneumovir PCR Not detected, Influenza A (H1) PCR Not detected, Influ A (H1N1/09) PCR Not detected, Influenza A (H3) PCR Not detected, Influenza Type A (PCR) Not detected, Influenza Type B (PCR) Not detected, M. pneumoniae (PCR) Not detected, Parainfluenza 1 (PCR) Not detected, Parainfluenza 2 (PCR) Not detected, Parainfluenza 3 (PCR) Not detected, Parainfluenza 4 (PCR) Not detected, RSV (PCR) Not detected, Entero/Rhino (PCR) Not detected 03/11/25 17:18: Lactate 1.5, Troponin I 0.01 03/11/25 17:44: VBG pH 7.43 H, VBG pCO2 37.9, VBG pO2 119.3 H, VBG HCO3 24.8, VBG Total CO2 26.0, VBG O2 Saturation 98.7 H, VBG Base Excess 0.6, VBG Lactic Acid 2.2 H 03/11/25 20:49: Ammonia < 9 L 03/11/25 21:46: Troponin I < 0.01 03/12/25 04:58: WBC 13.4 H D, RBC 3.32 L, Hgb 10.7 L, Hct 31.3 L, MCV 94.3, MCH 32.2 H, MCHC 34.2, RDW 13.4, Plt Count 70 L, MPV 9.0, Neut % (Auto) 79.4, Lymph % (Auto) 9.2 L, [place] % (Auto) 10.7 H, Eos % (Auto) 0.1, Baso % (Auto) 0.2, Neut # (Auto) 10.6 H, Lymph # (Auto) 1.2, [place] # (Auto) 1.4 H, Eos # (Auto) 0.0, Baso # (Auto) 0.0, VBG pH 7.44 H, VBG pCO2 42.7, VBG pO2 69.9 H, VBG HCO3 28.2, VBG Total CO2 29.5 H, VBG O2 Saturation 94.9 H, VBG Base Excess 4.0 H, VBG Lactic Acid 1.7, Sodium 132 L, Potassium 4.4, Chloride 99, Carbon Dioxide 29, Anion Gap 8.4, BUN 29 H, Creatinine 1.50 H, Estimated Creat Clear 44, Estimated GFR 34 L, Est GFR ( Amer) 41 L, Glucose 139 H D, Hemoglobin A1c 5.6, Calcium 8.9, Magnesium 2.0, Total Bilirubin 0.4, AST 23 D, ALT 12, Alkaline Phosphatase 65, C-Reactive Protein 108.3 H, Total Protein 5.9 L, Albumin 2.8 L, Globulin 3.1, Albumin/Globulin Ratio 0.9 L, TSH 2.10, Free T4 0.80 Medical History: Medical History (Updated 03/11/25 @ 18:14 by Chava Mai MD) Insomnia THEA (generalized anxiety disorder) Restless leg syndrome Chronic kidney disease, stage 3a Peripheral vascular disease Schizoaffective disorder, bipolar type Hammer toe of right foot Hammer toe of left foot Bipolar 1 disorder Stenosis of carotid artery T2DM (type 2 diabetes mellitus) Renal disease HTN (hypertension), benign HLD (hyperlipidemia) Depression Cancer Atherosclerotic heart disease Anxiety Assessment and Plan Assessment and plan all Dx Assessment and Plan for all problems:: Pharmacokinetic dosing service Objective: Patient: Floor: Age: 74 yo Serum creatinine: 1.50 mg/dL Height: 65.0 Inches Weight (kg): 84.6 Assessment: IBW (kg): 57.00 Dosing wt(kg): 84.6 Estimated Creatinine clearance (ml/min): 29.6 CRCL method: Cockcroft and Gault using ibw(default). Drug selected: Vancomycin Loading dose (mg): Vd (liters): 67.7 (factor used: 0.8 L/kg) Ramos (hr-1): 0.029 Half life (hrs): 23.90 CLvanco=?? 1.963 L/hr Recommended dose: 1500 mg Interval: 36 hrs Infusion time (hrs): 2.0 Predicted peak (mcg/mL): 33.2 Predicted trough (mcg/mL): 12.39 Total body weight is being used for vancomycin dosing. Recommendations: Give Vancomycin 1500 mg q 36 hrs with an expected Cpeak of 33.2 mcg/ml and an expected Ctrough of 12.39 mcg/ml AUC 0-24 /SAMMIE Data: SAMMIE 0.5 mcg/mL:?? AUC/SAMMIE:? 1018.8 SAMMIE 1.0 mcg/mL:?? AUC/SAMMIE:? 509.4 --------- SAMMIE 1.5 mcg/mL:?? AUC/SAMMIE:? 339.6 SAMMIE 2.0 mcg/mL:?? AUC/SAMMIE:? 254.7 Thank you for the consult, will continue to follow. -SHAHEED STONE, JOSE RAULD
[2025-03-12 12:55] LABS: Microscopic, Urine URINE MICROSCOPIC (MICROSCOPIC)
[2025-03-12 12:59] LABS: Bilirubin,Urine Negative (Negative); Color,Urine YELLOW (Yellow); Glucose,Urine (UA) 3+ (Negative); Ketones,Urine Negative (Negative); Leukocyte Esterase,Urine Negative (Negative); PH,Urine 5.5 (5.0-8.5); Protein,Urine Negative (Negative); Specific Gravity, Urine 1.010 (1.005-1.030); Urobilinogen,Urine 0.2 EU/dl (0.2)
[2025-03-12 15:04] LABS: POC Glucose,Bedside 129 gm/dL (70-110)
[2025-03-12] MEDS: humaLOG 100 UNITS/ML 10ML VIAL (SSI) SUBCUT ×2 (17:20→20:30)
--- NOTE | 2025-03-12 18:36 | PC.NURSE ---
Patient has been confused this shift at times with hallucinations. Lung sounds are diminished, currently on NC 2/L. Voids per purwick and incontinent with brief. Soft Mechanical diet, x1 assist with eating. Blood Pressure became hypotensive with readings 67/38, and manual check of 72/48. Started on Levo drip currently set at 3mcg/min going in the R FA. EEG was not completed this morning, she was unable to follow directions, patients family asked if this could be tried again and would be here for the test. Seizure precautions currently in place. Denies any chest pain this shift. Currently in bed at this time with call chen within reach.
[2025-03-12] MEDS: levETIRAcetam 500 MG in 0.9 % SODIUM CHLORIDE 100 ML 220 MG IV (20:28)
[2025-03-13] VITALS (27 sets, daily range): BP systolic 99–144; BP diastolic 47–94; PULSE 61–80; RESP 14–27; TEMP 36.6–37.2; O2SAT 93–97; BMI 31.3
[2025-03-13] MEDS: VANCOMYCIN/WATER FOR INJ (PEG) 1.5 GM/300 ML PIGGYBACK IV (00:46)
[2025-03-13] MEDS: PIPERCILLIN/TAZO 3.375 GM in 0.9 % SODIUM CHLORIDE 50 ML IV ×3 (03:36→20:09)
[2025-03-13] MEDS: IPRATROPIUM/ALBUTEROL 3 ML NEB IH ×3 (06:16→17:48)
[2025-03-13 06:34] LABS: Hematocrit 30.3 % (37.0-47.0); Hemoglobin 10.1 g/dL (12.2-16.2); Immature Granulocytes % 0.6 %; Mean Corpuscular HGB Conc 33.3 g/dL (31.8-35.4); Mean Corpuscular Hemoglobin 31.7 pg (27.0-31.2); Mean Corpuscular Volume 95.0 fl (81-99); Nucleated Red Blood Cells % 0 %; Platelet Count 86 K/mm3 (142-424); Red Blood Count 3.19 M/mm3 (4.20-5.40); Red Cell Distribution Width-SD 48.6 fL; White Blood Count 10.6 K/mm3 (4.8-10.8)
[2025-03-13 06:45] LABS: Alanine Aminotransferase 11 U/L (12-78); Albumin Level 2.8 g/dl (3.5-5.0); Albumin/Globulin Ratio 1.1 (1.1-1.8); Alkaline Phosphatase 72 U/L (38-126); Anion Gap 6.7 mEq/L (5-15); Aspartate Amino Transferase 26 U/L (14-36); Bilirubin,Total 0.4 mg/dl (0.2-1.3); Blood Urea Nitrogen 24 mg/dl (7-17); Calcium 8.8 mg/dl (8.4-10.2); Carbon Dioxide 31 mmol/L (22.0-30.0); Chloride 100 mmol/L (98-107); Creatinine Clearance Estimated 47 mL/min (50-200); Creatinine,Serum 1.40 mg/dl (0.52-1.04); Estimated Glomerular Filt Rate 37 ml/min (>60); GFR (African American) 44 ML/MIN (>60); Globulin 2.6 g/dL (1.3-3.2); Glucose 94 mg/dl (74-100); Magnesium 2.0 mg/dl (1.6-2.3); Potassium 3.7 mmoL/L (3.5-5.1); Sodium 134 mmol/L (136-145); Total Protein,Serum 5.4 g/dl (6.3-8.2)
[2025-03-13] MEDS: levETIRAcetam 500 MG in 0.9 % SODIUM CHLORIDE 100 ML 220 MG IV ×2 (07:45→19:31)
[2025-03-13] MEDS: ASPIRIN EC 81MG TABLET 81 MG PO (08:41)
--- NOTE | 2025-03-13 09:10 | HMH.PHAAMS2 ---
- Antimicrobial Stewardship Review culture & sensitivity review Stewardship interventions: culture & sensitivity review, reviewed - no change (ON VANCOMYCIN AND ZOSYN. BLOOD CX SHOW NO GROWTH AT 24 HOURS.)
[2025-03-13 11:55] LABS: POC Glucose,Bedside 100 gm/dL (70-110)
[2025-03-13 11:55] LABS: POC Glucose,Bedside 192 gm/dL (70-110)
[2025-03-13 11:55] LABS: POC Glucose,Bedside 135 gm/dL (70-110)
[2025-03-13 11:55] LABS: POC Glucose,Bedside 122 gm/dL (70-110)
[2025-03-13 11:55] LABS: POC Glucose,Bedside 227 gm/dL (70-110)
[2025-03-13 11:55] LABS: POC Glucose,Bedside 128 gm/dL (70-110)
[2025-03-13 16:29] LABS: POC Glucose,Bedside 210 gm/dL (70-110)
[2025-03-13] MEDS: humaLOG 100 UNITS/ML 10ML VIAL (SSI) SUBCUT ×2 (17:04→20:20)
--- NOTE | 2025-03-13 17:14 | EXP.ACUTE.PN ---
Subjective *Date: 03/13/25 *Time: 17:14 Interval history: Makes eye contact this morning. Denies any nausea or chest pain. Stable on 2 L oxygen. Oriented to self. Afebrile. Medical Exam Vital signs and Labs for Last 24 Hours: Vital Signs Temp Pulse Resp BP Pulse Ox O2 Del Method O2 Flow Rate 03/13/25 16:11 98.7 F 77 21 144/71 H 96 Nasal Cannula 2 03/13/25 15:00 Nasal Cannula 2 03/13/25 14:00 96 Nasal Cannula 2 03/13/25 14:00 70 16 129/64 95 Nasal Cannula 2 03/13/25 13:00 Nasal Cannula 2 03/13/25 12:00 98.3 F 61 20 114/54 L 96 Nasal Cannula 2 03/13/25 12:00 72 03/13/25 11:00 Nasal Cannula 2 03/13/25 10:14 77 03/13/25 10:14 75 03/13/25 10:00 70 27 H 99/47 L 96 Nasal Cannula 2 03/13/25 09:00 78 20 125/57 L 94 L Nasal Cannula 2 03/13/25 09:00 Nasal Cannula 2 03/13/25 08:15 98.4 F 75 22 135/60 95 Nasal Cannula 2 03/13/25 08:00 96 Nasal Cannula 2 03/13/25 08:00 78 03/13/25 07:00 72 18 139/66 97 Nasal Cannula 2 03/13/25 06:53 Nasal Cannula 03/13/25 06:14 80 03/13/25 06:14 77 03/13/25 06:14 95 Nasal Cannula 2 03/13/25 06:00 77 19 143/94 H 96 Nasal Cannula 2 03/13/25 05:00 68 24 126/59 L 97 Nasal Cannula 2 03/13/25 05:00 Nasal Cannula 2 03/13/25 04:00 70 03/13/25 04:00 75 15 112/55 L 97 Nasal Cannula 2 03/13/25 04:00 96 Nasal Cannula 03/13/25 03:09 Non-Rebreather 03/13/25 03:00 68 17 124/57 L 94 L 03/13/25 02:45 71 15 122/60 95 03/13/25 02:30 71 15 120/60 97 03/13/25 02:16 75 17 127/61 95 03/13/25 02:00 75 14 124/54 L 96 Nasal Cannula 2 03/13/25 01:00 72 19 118/49 L 96 03/13/25 01:00 Nasal Cannula 03/13/25 00:15 71 18 126/55 L 96 03/13/25 00:00 96 Nasal Cannula 2 03/13/25 00:00 96 Nasal Cannula 03/13/25 00:00 74 03/13/25 00:00 97.9 F 74 18 122/54 L 97 Nasal Cannula 2 03/12/25 23:58 76 03/12/25 23:58 77 03/12/25 23:15 68 20 126/62 100 03/12/25 23:01 72 22 107/49 L 95 03/12/25 23:00 Nasal Cannula 03/12/25 22:45 64 12 138/87 95 03/12/25 22:30 71 15 110/58 L 94 L 03/12/25 22:15 69 22 115/55 L 94 L 03/12/25 22:00 65 13 131/68 96 03/12/25 21:45 72 11 L 112/75 97 03/12/25 21:30 69 20 132/58 L 96 03/12/25 21:15 71 21 117/58 L 98 03/12/25 21:00 69 16 113/57 L 96 03/12/25 21:00 Nasal Cannula 03/12/25 20:00 72 03/12/25 20:00 94 L Nasal Cannula 03/12/25 20:00 98.4 F 71 21 126/57 L 98 Nasal Cannula 2 03/12/25 19:00 98.4 F 73 23 100/55 L 98 Nasal Cannula 2 03/12/25 19:00 Nasal Cannula 2 03/12/25 19:00 75 100/55 L 97 Nasal Cannula 2 03/12/25 18:59 Nasal Cannula 2 03/12/25 18:58 77 03/12/25 18:57 73 03/12/25 18:29 98.1 F 03/12/25 18:00 75 125/48 L 100 Nasal Cannula 2 Intake and Output 03/13/25 03/13/25 03/13/25 07:59 15:59 23:59 Intake Total 366.664 / 803.664 437 / 803.664 Output Total 500 / 775 275 / 775 Balance -133.336 / 28.664 162 / 28.664 Intake: Intake, Oral Amount 282 / 282 Intake, Total IV Amount 366.664 / 521.664 155 / 521.664 Norepinephrine Bitartrate/D5w 8 16.664 / 16.664 mg In 250 ml @ 2 MCG/MIN 3.75 mls/hr IV .Q24H DEEPTI Rx#: [id number] Pipercillin/Tazo 3.375 gm In 0. 50 / 100 50 / 100 9 % Sodium Chloride 50 ml @ 100 mls/hr IV Q8H DEEPTI Rx#:[id number] Vancomycin/Water For Inj (Peg) 300 / 300 1.5 gm In 300 ml @ 150 mls/hr IV Q36H DEEPTI Rx#:[id number] levETIRAcetam 500 mg In 0.9 % 105 / 105 Sodium Chloride 100 ml @ 220 mls/hr IV Q12H DEEPTI Rx#:[id number] Output: Output, Urine Amount 500 / 775 275 / 775 Other: Number of Unmeasured Voids 0 0 1 Number of Bowel Movements 1 Weight 85.2 kg Patient Weight 03/13/25 23:59 Weight 85.2 kg Laboratory Results - last 24 hr 03/12/25 06:33: POC Glucose 135 H 03/12/25 11:07: POC Glucose 122 H 03/12/25 17:01: POC Glucose 192 H 03/12/25 20:11: POC Glucose 227 H 03/13/25 05:05: POC Glucose 100 03/13/25 05:37: WBC 10.6, RBC 3.19 L, Hgb 10.1 L, Hct 30.3 L, MCV 95.0, MCH 31.7 H, MCHC 33.3, RDW 13.7, Plt Count 86 L, MPV 9.1, Neut % (Auto) 68.1, Lymph % (Auto) 17.8, [place] % (Auto) 10.7 H, Eos % (Auto) 2.4, Baso % (Auto) 0.4, Neut # (Auto) 7.2, Lymph # (Auto) 1.9, [place] # (Auto) 1.1 H, Eos # (Auto) 0.3, Baso # (Auto) 0.0, Sodium 134 L, Potassium 3.7, Chloride 100, Carbon Dioxide 31 H, Anion Gap 6.7, BUN 24 H, Creatinine 1.40 H, Estimated Creat Clear 47, Estimated GFR 37 L, Est GFR ( Amer) 44 L, Glucose 94, Calcium 8.8, Magnesium 2.0, Total Bilirubin 0.4, AST 26, ALT 11 L, Alkaline Phosphatase 72, Total Protein 5.4 L, Albumin 2.8 L, Globulin 2.6, Albumin/Globulin Ratio 1.1 03/13/25 10:48: POC Glucose 128 H 03/13/25 16:22: POC Glucose 210 H I & O for Labs for Last 24 Hours: Intake & Output 03/10/25 03/11/25 03/12/25 03/13/25 23:59 23:59 23:59 23:59 Intake Total 760 / 760 767.214 / 767.214 803.664 / 803.664 Output Total 200 / 200 1800 / 1800 775 / 775 Balance 560 / 560 -1032.786 / -1032.786 28.664 / 28.664 Weight 86.183 kg 84.6 kg 85.2 kg Microbiology Reports for the Last 24 Hours: Microbiology 03/11/25 11:35 Blood Blood Culture - Preliminary NO GROWTH AFTER 48 HOURS 03/11/25 11:30 Blood Blood Culture - Preliminary NO GROWTH AFTER 48 HOURS Constitutional: Present no acute distress, obese, chronically ill appearing and cooperative Head: Present atraumatic and normocephalic Respiratory: Present crackles and normal respiratory effort; Absent rhonchi or wheezes Cardiac: Present Reg Rate and Rhythm GI: Present soft and normal bowel sounds; Absent distention or tenderness Extremities: Present normal inspection and full ROM; Absent tenderness or edema Skin: Present intact; Absent erythema Neuro: Present Grossly Intact, alert, awake and moves all extremities Comment:: Oriented to self only. Appears confused Assessment and Plan *Assessment and plan (1) Seizure-like activity: Status: Acute Category: Medical Code(s): R56.9 - Unspecified convulsions (2) Aspiration pneumonitis: Status: Acute Category: Medical Code(s): J69.0 - Pneumonitis due to inhalation of food and vomit (3) Hypercapnic respiratory failure: Status: Acute Category: Medical Code(s): J96.92 - Respiratory failure, unspecified with hypercapnia (4) Metabolic encephalopathy: Status: Acute Category: Medical Code(s): G93.41 - Metabolic encephalopathy (5) T2DM (type 2 diabetes mellitus): Status: Acute Qualifiers: Diabetes mellitus jail insulin use: without terminal supervisor use Diabetes mellitus complication status: with other specified complication Qualified Code(s): E11.69 - Type 2 diabetes mellitus with other specified complication Category: Medical Code(s): E11.9 - Type 2 diabetes mellitus without complications (6) HLD (hyperlipidemia): Status: Acute Qualifiers: Hyperlipidemia type: unspecified Qualified Code(s): E78.5 - Hyperlipidemia, unspecified Category: Medical Code(s): E78.5 - Hyperlipidemia, unspecified (7) HTN (hypertension), benign: Status: Acute Category: Medical Code(s): I10 - Essential (primary) hypertension Plan Bea Escobar is a 74-year-old female with a medical history significant for mood disorder, venous insufficiency, type 2 diabetes, hypertension who presents from custodial due to concerns of seizure activity and subsequent unresponsiveness, hypoxia. Patient is encephalopathic at this time and not responding to questions, so history was obtained via chart review. Nursing staff apparently found patient to have seizure-like activity, with post episode muscle rigidity, hypoxia requiring nonrebreather 15 L. She was brought to the ER and was escalated to Vapotherm 35 L 70% as she was saturating 86% on nonrebreather 15 L. Workup in the ED significant for WBC 5.3, VBG pH 7.32 pCO2 71.5, lactic acid 2.7, CRP 6.1, BNP 2520. CTA chest revealed multifocal pneumonia greatest in the left lower lobe, and left breast mass favoring postoperative fluid collection. CT abdomen significant for rectosigmoid fecal impaction and cholelithiasis. She was given Zosyn, vancomycin. Given this presentation ED provider discussed case with me and I decided to admit patient for further evaluation management. Continues to require patient management. Showed improvement. Off Levophed overnight. Will de-escalate to stepdown level of care today. Continues to require inpatient management. Reattempt EEG. Problems addressed as follows: #Acute metabolic encephalopathy #Suspected aspiration pneumonitis versus pneumonia #Acute hypoxic respiratory failure #Compensated hypercapnic respiratory failure Hypotension ? Patient presented with after seizure-like activity at custodial, found to be mildly responsive and hypoxic. Initially requiring Vapotherm 30 L 75%, though saturating 98% on my evaluation. ? CTA suggestive of multifocal pneumonia, greatest in the left lower lobe. White count improved to 10.6. Hemoglobin stable at 10.1. Kidney function stable with BUN 24, creatinine 1.4. -Continue broad-spectrum antibiotics with Zosyn 3.375 g every 8 hours. Continue IV vancomycin. - Blood pressure stabilized, discontinue Levophed -Wean oxygen as tolerated. Currently on 2 L nasal cannula with goal sats greater 90%. ? DuoNebs every 6 hours. ? Follow-up sputum, blood cultures. ? Follow-up morning VBG. - respiratory panel negative - Repeat CBC, CMP, magnesium ordered for the morning #Seizure-like activity ?Showing improvement today. Makes eye contact. Answers questions with simple answers of yes or no. Denies any pain. Oriented to self ?Reattempt EEG today. If able to complete, will follow-up on read - Continue Keppra 500 mg twice daily ? IV Valium 5 mg as needed for seizures. ? Aspiration, seizure precautions. #Suspected mood disorder ? Depakote level still pending, send out lab - Will resume Depakote at half dose of 250 mg 3 times a day, resume Risperdal 2 mg twice daily. Continue to hold trazodone, monitor for changes in mentation #Type 2 diabetes ? A1c well-controlled at 5.6. Holding home insulin regimen. Continue sliding scale insulin with fingersticks ACHS, 1 glucose in the 90s #Hypertension ? Holding home blood pressure regimen including carvedilol, lisinopril, torsemide. Off Levophed for 12 hours. Reevaluate blood pressure regimen in the morning #Venous insufficiency ? Follows with cardiology, holding torsemide at this time DNR/DNI DVT prophylaxis: Lovenox 40 mg Home medications: Holding as above.
[2025-03-13 19:51] LABS: POC Glucose,Bedside 186 gm/dL (70-110)
[2025-03-13] MEDS: DIVALPROEX 500MG (Delayed-Release) TABLET 250 MG PO (20:29)
[2025-03-14] VITALS (12 sets, daily range): BP systolic 137–149; BP diastolic 64–70; PULSE 77–82; RESP 17–26; TEMP 36.6–37; O2SAT 93–97; BMI 30.8
[2025-03-14] MEDS: IPRATROPIUM/ALBUTEROL 3 ML NEB IH ×3 (00:04→11:35)
--- NOTE | 2025-03-14 04:10 | PC.WOUNDNOTE ---
healing ulceration/scarring noted to coccyx
[2025-03-14] MEDS: PIPERCILLIN/TAZO 3.375 GM in 0.9 % SODIUM CHLORIDE 50 ML IV ×2 (04:30→11:47)
[2025-03-14 04:47] LABS: POC Glucose,Bedside 180 gm/dL (70-110)
[2025-03-14] MEDS: humaLOG 100 UNITS/ML 10ML VIAL (SSI) SUBCUT ×2 (05:00→11:31)
[2025-03-14 05:52] LABS: Hematocrit 29.3 % (37.0-47.0); Hemoglobin 9.9 g/dL (12.2-16.2); Immature Granulocytes % 0.5 %; Mean Corpuscular HGB Conc 33.8 g/dL (31.8-35.4); Mean Corpuscular Hemoglobin 32.4 pg (27.0-31.2); Mean Corpuscular Volume 95.8 fl (81-99); Nucleated Red Blood Cells % 0 %; Platelet Count 83 K/mm3 (142-424); Red Blood Count 3.06 M/mm3 (4.20-5.40); Red Cell Distribution Width-SD 48.5 fL; White Blood Count 8.3 K/mm3 (4.8-10.8)
[2025-03-14 06:13] LABS: Alanine Aminotransferase 23 U/L (12-78); Albumin Level 2.6 g/dl (3.5-5.0); Albumin/Globulin Ratio 1.0 (1.1-1.8); Alkaline Phosphatase 110 U/L (38-126); Anion Gap 5.7 mEq/L (5-15); Aspartate Amino Transferase 48 U/L (14-36); Bilirubin,Total 0.4 mg/dl (0.2-1.3); Blood Urea Nitrogen 19 mg/dl (7-17); Calcium 8.6 mg/dl (8.4-10.2); Carbon Dioxide 30 mmol/L (22.0-30.0); Chloride 103 mmol/L (98-107); Creatinine Clearance Estimated 54 mL/min (50-200); Creatinine,Serum 1.20 mg/dl (0.52-1.04); Estimated Glomerular Filt Rate 44 ml/min (>60); GFR (African American) 53 ML/MIN (>60); Globulin 2.6 g/dL (1.3-3.2); Glucose 192 mg/dl (74-100); Magnesium 1.9 mg/dl (1.6-2.3); Potassium 3.7 mmoL/L (3.5-5.1); Sodium 135 mmol/L (136-145); Total Protein,Serum 5.2 g/dl (6.3-8.2)
[2025-03-14] MEDS: levETIRAcetam 500 MG in 0.9 % SODIUM CHLORIDE 100 ML 220 MG IV (07:41)
--- NOTE | 2025-03-14 08:47 | P.PN_ITS ---
Subjective *Date: 03/14/25 *Time: 08:47 Medical Exam Vital signs and Labs for Last 24 Hours: Vital Signs Temp Pulse Resp BP Pulse Ox O2 Del Method O2 Flow Rate 03/14/25 08:00 98.6 F 82 26 H 138/64 95 Nasal Cannula 2 03/14/25 07:48 94 L Nasal Cannula 1 03/14/25 07:00 Nasal Cannula 2 03/14/25 06:14 78 03/14/25 06:14 77 03/14/25 06:14 97 Nasal Cannula 2 03/14/25 04:42 Nasal Cannula 2 03/14/25 04:20 80 03/14/25 04:00 98.1 F 77 17 149/69 H 94 L 03/14/25 03:00 Nasal Cannula 2 03/14/25 01:00 Nasal Cannula 2 03/14/25 00:04 78 03/14/25 00:04 79 03/14/25 00:02 78 03/14/25 00:01 97.8 F 78 23 137/67 95 03/14/25 00:00 93 L Nasal Cannula 2 03/13/25 23:00 Nasal Cannula 2 03/13/25 21:00 Nasal Cannula 2 03/13/25 20:02 77 03/13/25 19:45 98.9 F 78 21 119/54 L 95 Nasal Cannula 2 03/13/25 19:45 93 L Nasal Cannula 2 03/13/25 18:58 Nasal Cannula 2 03/13/25 18:00 78 17 138/68 96 Nasal Cannula 2 03/13/25 17:49 96 Nasal Cannula 2 03/13/25 17:48 76 03/13/25 17:48 77 03/13/25 17:00 Nasal Cannula 2 03/13/25 16:11 98.7 F 77 21 144/71 H 96 Nasal Cannula 2 03/13/25 16:00 96 Nasal Cannula 2 03/13/25 16:00 72 03/13/25 15:00 Nasal Cannula 2 03/13/25 14:00 96 Nasal Cannula 2 03/13/25 14:00 70 16 129/64 95 Nasal Cannula 2 03/13/25 13:00 Nasal Cannula 2 03/13/25 12:00 98.3 F 61 20 114/54 L 96 Nasal Cannula 2 03/13/25 12:00 72 03/13/25 11:00 Nasal Cannula 2 03/13/25 10:14 77 03/13/25 10:14 75 03/13/25 10:00 70 27 H 99/47 L 96 Nasal Cannula 2 03/13/25 09:00 78 20 125/57 L 94 L Nasal Cannula 2 03/13/25 09:00 Nasal Cannula 2 Intake and Output 03/13/25 03/14/25 03/14/25 23:59 07:59 15:59 Intake Total 617 / 1420.664 490 / 595 105 / 595 Balance 617 / 645.664 490 / 595 105 / 595 Intake: Intake, Oral Amount 462 / 744 440 / 440 Intake, Total IV Amount 155 / 676.664 50 / 155 105 / 155 Norepinephrine Bitartrate/D5w 8 0 / 16.664 mg In 250 ml @ 2 MCG/MIN 3.75 mls/hr IV .Q24H DEEPTI Rx#: [id number] Pipercillin/Tazo 3.375 gm In 0. 50 / 150 50 / 50 9 % Sodium Chloride 50 ml @ 100 mls/hr IV Q8H DEEPTI Rx#:[id number] levETIRAcetam 500 mg In 0.9 % 105 / 210 105 / 105 Sodium Chloride 100 ml @ 220 mls/hr IV Q12H DEEPTI Rx#:[id number] Other: Number of Unmeasured Voids 1 2 0 Weight 83.9 kg Patient Weight 03/14/25 23:59 Weight 83.9 kg Laboratory Results - last 24 hr 03/12/25 06:33: POC Glucose 135 H 03/12/25 11:07: POC Glucose 122 H 03/12/25 17:01: POC Glucose 192 H 03/12/25 20:11: POC Glucose 227 H 03/13/25 05:05: POC Glucose 100 03/13/25 10:48: POC Glucose 128 H 03/13/25 16:22: POC Glucose 210 H 03/13/25 19:40: POC Glucose 186 H 03/14/25 04:40: POC Glucose 180 H 03/14/25 05:27: WBC 8.3, RBC 3.06 L, Hgb 9.9 L, Hct 29.3 L, MCV 95.8, MCH 32.4 H , MCHC 33.8, RDW 13.8, Plt Count 83 L, MPV 8.9, Neut % (Auto) 61.7, Lymph % (Auto) 26.1, [place] % (Auto) 7.9, Eos % (Auto) 3.4, Baso % (Auto) 0.4, Neut # (Auto) 5.2, Lymph # (Auto) 2.2, [place] # (Auto) 0.7, Eos # (Auto) 0.3, Baso # (Auto) 0.0, Sodium 135 L, Potassium 3.7, Chloride 103, Carbon Dioxide 30, Anion Gap 5.7, BUN 19 H, Creatinine 1.20 H, Estimated Creat Clear 54, Estimated GFR 44 L, Est GFR ( Amer) 53 L D, Glucose 192 H D, Calcium 8.6, Magnesium 1.9, Total Bilirubin 0.4, AST 48 H D, ALT 23 D, Alkaline Phosphatase 110, Total Protein 5.2 L, Albumin 2.6 L, Globulin 2.6, Albumin/Globulin Ratio 1.0 L I & O for Labs for Last 24 Hours: Intake & Output 03/11/25 03/12/25 03/13/25 03/14/25 23:59 23:59 23:59 23:59 Intake Total 760 / 760 767.214 / 282.554 8451.664 / 1420.664 595 / 595 Output Total 200 / 200 1800 / 1800 775 / 775 Balance 560 / 560 -1032.786 / -1032.786 645.664 / 645.664 595 / 595 Weight 86.183 kg 84.6 kg 85.2 kg 83.9 kg Microbiology Reports for the Last 24 Hours: Microbiology 03/11/25 11:35 Blood Blood Culture - Preliminary NO GROWTH AFTER 48 HOURS 03/11/25 11:30 Blood Blood Culture - Preliminary NO GROWTH AFTER 48 HOURS The patient's infection will respond to the chosen ABx?: Yes Is the patient receiving the right drug, dose, and route?: Yes Could a more targeted ABx be ordered?: No (WBC DECREASED, AFEBRILE)
[2025-03-14] MEDS: ASPIRIN EC 81MG TABLET 81 MG PO (09:20)
[2025-03-14] MEDS: DOCUSATE SODIUM 100 MG CAPSULE PO (09:20)
[2025-03-14] MEDS: DIVALPROEX 250MG (Delayed-Release) TABLET 250 MG PO ×2 (09:20→13:28)
--- NOTE | 2025-03-14 09:25 | HMH.PHAAMS2 ---
- Antimicrobial Stewardship Review 48 hour timeout review Stewardship interventions: 48 hour timeout review, reviewed - no change Comments: BLOOD CULTURES NO GROWTH, AWAITING SPUTUM CULTURES TO BE COLLECTED, ZOSYN AND VANCO FOR ASPIRATION PNEUMO EMPIRIC THERAPY
[2025-03-14 10:56] LABS: POC Glucose,Bedside 211 gm/dL (70-110)
--- NOTE | 2025-03-14 11:34 | EXP.DC.SUM ---
General Admission date:: 03/11/25 Discharge date: 03/14/25 HPI HPI HPI: Bea Escobar is a 74-year-old female with a medical history significant for mood disorder, with insufficiency, type 2 diabetes, hypertension who presents from [facility] due to concerns of seizure activity and subsequent unresponsiveness, hypoxia. Patient is encephalopathic at this time and not responding to questions, so history was obtained via chart review. Nursing staff apparently found patient to have seizure-like activity, with post episode muscle rigidity, hypoxia requiring nonrebreather 15 L. She was brought to the ER and was escalated to Vapotherm 35 L 70% as she was saturating 86% on nonrebreather 15 L. Workup in the ED significant for WBC 5.3, ABG pH 7.32 pCO2 71.5, lactic acid 2.7, CRP 6.1, BNP 2520. CTA chest revealed multifocal pneumonia greatest in the left lower lobe, and left breast mass favoring postoperative fluid collection. CT abdomen significant for rectosigmoid fecal impaction and cholelithiasis. She was given Zosyn, vancomycin. Given this presentation ED provider discussed case with me and I decided to admit patient for further evaluation management. Hospital Course Hospital Course Hospital Course: Bea Escobar is a 74-year-old female with a medical history significant for mood disorder, venous insufficiency, type 2 diabetes, hypertension who presents from [facility] due to concerns of seizure activity and subsequent unresponsiveness, hypoxia. Patient is encephalopathic at this time and not responding to questions, so history was obtained via chart review. Nursing staff apparently found patient to have seizure-like activity, with post episode muscle rigidity, hypoxia requiring nonrebreather 15 L. She was brought to the ER and was escalated to Vapotherm 35 L 70% as she was saturating 86% on nonrebreather 15 L. Workup in the ED significant for WBC 5.3, VBG pH 7.32 pCO2 71.5, lactic acid 2.7, CRP 6.1, BNP 2520. CTA chest revealed multifocal pneumonia greatest in the left lower lobe, and left breast mass favoring postoperative fluid collection. CT abdomen significant for rectosigmoid fecal impaction and cholelithiasis. She was given Zosyn, vancomycin. Given this presentation ED provider discussed case with me and I decided to admit patient for further evaluation management. Has overall done well. Stable on supplemental oxygen of 1 to 2 L. EEG negative for seizure activity. Will discharge back to her long-term care facility at [facility]. Complete antibiotic course. Problems addressed as follows: #Acute metabolic encephalopathy #Suspected aspiration pneumonitis versus pneumonia #Acute hypoxic respiratory failure #Compensated hypercapnic respiratory failure Hypotension, consistent with septic shock ? Patient presented with after seizure-like activity at [facility], found to be mildly responsive and hypoxic. Initially requiring Vapotherm 30 L 75%, though saturating 98% on initial evaluation. CTA suggestive of multifocal pneumonia greatest in left lower lobe. White count has shown improvement with initiation of antibiotics. Initially on broad-spectrum antibiotics with vancomycin and Zosyn. Required Levophed briefly due to hypotension my evaluation. Able to wean off after 12 hours. Is maintaining normal blood pressure since. Will de-escalate antibiotics to Augmentin to complete 5-day course for aspiration pneumonia. Oxygen weaned to 2 L by day of discharge. Tolerating DuoNebs every 6 hours as needed. Cultures remain negative. Recommend continuing oxygen when she arrives at the facility, wean if sats greater than 90. White count normal at 8, hemoglobin 9.9 on day of discharge. Chemistry normal with kidney function of baseline BUN 19, creatinine 1.2. Glucoses well-controlled in mid 100 to low 200 range. #Seizure-like activity ?Showing improvement today. Makes eye contact. Answers simple questions with yes and no. Knew her name. Could not tell me where she was. She is oriented to self and has been for least 48 hours. Repeat EEG performed on 03/13. Did not show any acute seizure activity. Will continue low-dose Keppra 500 mg twice daily for now. No other signs of aspiration. Tolerating p.o. intake well. #Suspected mood disorder ? Depakote level still pending, send out lab. Previous level was normal on check several years ago. Has tolerated resumption of half dose. Having some lability of mood. Will resume home regimen of Depakote and follow-up. Holding trazodone at this time. Defer resumption to team at nursing facility. #Type 2 diabetes ? A1c well-controlled at 5.6. Held home regimen. Recommend decreasing long-acting regimen by half and continuing mealtime at half dose along with Jardiance. #Hypertension ? Holding home blood pressure regimen including carvedilol, lisinopril, torsemide. Initially needed Levophed with her pneumonia. Has been off Levophed for over 48 hours with normal blood pressure. Reevaluate resumption of blood pressure regimen after returning to nursing facility. Total time spent on discharge 38 minutes in counseling, documentation, chart review, and direct care with patient. Exam Data for Last 24 hours Vital signs and Labs for Last 24 Hours: Temp Pulse Resp BP Pulse Ox O2 Del Method O2 Flow Rate 98.6 F 80 26 H 138/64 96 Nasal Cannula 1 03/14/25 08:00 03/14/25 08:00 03/14/25 08:00 03/14/25 08:00 03/14/25 08:00 03/14/25 09:00 03/14/25 09:00 FiO2 40 03/12/25 08:01 Laboratory Results - last 24 hr 03/12/25 06:33: POC Glucose 135 H 03/12/25 11:07: POC Glucose 122 H 03/12/25 17:01: POC Glucose 192 H 03/12/25 20:11: POC Glucose 227 H 03/13/25 05:05: POC Glucose 100 03/13/25 10:48: POC Glucose 128 H 03/13/25 16:22: POC Glucose 210 H 03/13/25 19:40: POC Glucose 186 H 03/14/25 04:40: POC Glucose 180 H 03/14/25 05:27: WBC 8.3, RBC 3.06 L, Hgb 9.9 L, Hct 29.3 L, MCV 95.8, MCH 32.4 H, MCHC 33.8, RDW 13.8, Plt Count 83 L, MPV 8.9, Neut % (Auto) 61.7, Lymph % (Auto) 26.1, Woodson % (Auto) 7.9, Eos % (Auto) 3.4, Baso % (Auto) 0.4, Neut # (Auto) 5.2, Lymph # (Auto) 2.2, Woodson # (Auto) 0.7, Eos # (Auto) 0.3, Baso # (Auto) 0.0, Sodium 135 L, Potassium 3.7, Chloride 103, Carbon Dioxide 30, Anion Gap 5.7, BUN 19 H, Creatinine 1.20 H, Estimated Creat Clear 54, Estimated GFR 44 L, Est GFR ( Amer) 53 L D, Glucose 192 H D, Calcium 8.6, Magnesium 1.9, Total Bilirubin 0.4, AST 48 H D, ALT 23 D, Alkaline Phosphatase 110, Total Protein 5.2 L, Albumin 2.6 L, Globulin 2.6, Albumin/Globulin Ratio 1.0 L 03/14/25 10:49: POC Glucose 211 H I & O for Last 24 hours: Intake & Output 03/11/25 03/12/25 03/13/25 03/14/25 23:59 23:59 23:59 23:59 Intake Total 760 / 760 767.214 / 934.545 9687.664 / 1420.664 595 / 595 Output Total 200 / 200 1800 / 1800 775 / 775 350 / 350 Balance 560 / 560 -1032.786 / -1032.786 645.664 / 645.664 245 / 245 Weight 86.183 kg 84.6 kg 85.2 kg 83.9 kg Microbiology Reports for the Last 24 Hours: Microbiology 03/11/25 11:35 Blood Blood Culture - Preliminary NO GROWTH AFTER 48 HOURS 03/11/25 11:30 Blood Blood Culture - Preliminary NO GROWTH AFTER 48 HOURS Constitutional Constitutional: no acute distress, obese, chronically ill appearing and cooperative *Routine HEENT Exam Head: Present normocephalic Eye: Present EOMI and PERRL ENT: Present mucous membranes moist *Routine Neck Exam Neck: Present supple; Absent lymphadenopathy *Routine Respiratory Exam Respiratory: Present CTA bilaterally; Absent respiratory distress, stridor, wheezes or crackles *Routine Cardiovascular Exam Cardiovascular: Present RRR *Routine Abdominal Exam Abdominal: Present soft and normoactive bowel sounds; Absent tenderness *Routine Rectal Exam Patient deferred: visual exam *Routine Exam Patient deferred: external exam *Routine Extremities Exam Extremities: Present edema (Trace bilateral ankles); Absent cyanosis or clubbing *Routine Skin Exam Skin: Present intact and warm; Absent rash Comments: Healed decubitus wound over sacrum, was present on admission *Routine Neurological Exam Neurological: Present alert, altered mental status and moving all extremities Comments: Oriented to self. Disoriented to place Results Data Completed and Pending Labs on day of discharge: Labs from last 24 hours 03/14/25 03/14/25 03/14/25 10:49 05:27 04:40 WBC 8.3 RBC 3.06 L Hgb 9.9 L Hct 29.3 L MCV 95.8 MCH 32.4 H MCHC 33.8 RDW 13.8 Plt Count 83 L MPV 8.9 Neut % (Auto) 61.7 Lymph % (Auto) 26.1 Woodson % (Auto) 7.9 Eos % (Auto) 3.4 Baso % (Auto) 0.4 Neut # (Auto) 5.2 Lymph # (Auto) 2.2 Woodson # (Auto) 0.7 Eos # (Auto) 0.3 Baso # (Auto) 0.0 Sodium 135 L Potassium 3.7 Chloride 103 Carbon Dioxide 30 Anion Gap 5.7 BUN 19 H Creatinine 1.20 H Estimated Creat Clear 54 Estimated GFR 44 L Est GFR ( Amer) 53 L D Glucose 192 H D POC Glucose 211 H 180 H Calcium 8.6 Magnesium 1.9 Total Bilirubin 0.4 AST 48 H D ALT 23 D Alkaline Phosphatase 110 Total Protein 5.2 L Albumin 2.6 L Globulin 2.6 Albumin/Globulin Ratio 1.0 L 03/13/25 03/13/25 03/13/25 19:40 16:22 10:48 WBC RBC Hgb Hct MCV MCH MCHC RDW Plt Count MPV Neut % (Auto) Lymph % (Auto) Woodson % (Auto) Eos % (Auto) Baso % (Auto) Neut # (Auto) Lymph # (Auto) Woodson # (Auto) Eos # (Auto) Baso # (Auto) Sodium Potassium Chloride Carbon Dioxide Anion Gap BUN Creatinine Estimated Creat Clear Estimated GFR Est GFR ( Amer) Glucose POC Glucose 186 H 210 H 128 H Calcium Magnesium Total Bilirubin AST ALT Alkaline Phosphatase Total Protein Albumin Globulin Albumin/Globulin Ratio 03/13/25 03/12/25 03/12/25 05:05 20:11 17:01 WBC RBC Hgb Hct MCV MCH MCHC RDW Plt Count MPV Neut % (Auto) Lymph % (Auto) Woodson % (Auto) Eos % (Auto) Baso % (Auto) Neut # (Auto) Lymph # (Auto) Woodson # (Auto) Eos # (Auto) Baso # (Auto) Sodium Potassium Chloride Carbon Dioxide Anion Gap BUN Creatinine Estimated Creat Clear Estimated GFR Est GFR ( Amer) Glucose POC Glucose 100 227 H 192 H Calcium Magnesium Total Bilirubin AST ALT Alkaline Phosphatase Total Protein Albumin Globulin Albumin/Globulin Ratio 03/12/25 03/12/25 11:07 06:33 WBC RBC Hgb Hct MCV MCH MCHC RDW Plt Count MPV Neut % (Auto) Lymph % (Auto) Woodson % (Auto) Eos % (Auto) Baso % (Auto) Neut # (Auto) Lymph # (Auto) Woodson # (Auto) Eos # (Auto) Baso # (Auto) Sodium Potassium Chloride Carbon Dioxide Anion Gap BUN Creatinine Estimated Creat Clear Estimated GFR Est GFR ( Amer) Glucose POC Glucose 122 H 135 H Calcium Magnesium Total Bilirubin AST ALT Alkaline Phosphatase Total Protein Albumin Globulin Albumin/Globulin Ratio Preliminary micro results at discharge 03/11/25 11:35 Blood Culture - Preliminary Blood NO GROWTH AFTER 48 HOURS 03/11/25 11:30 Blood Culture - Preliminary Blood NO GROWTH AFTER 48 HOURS DS: Diagnosis Discharge Diagnosis (1) Seizure-like activity: Status: Acute Code(s): R56.9 - Unspecified convulsions (2) Aspiration pneumonitis: Status: Ruled-out Code(s): J69.0 - Pneumonitis due to inhalation of food and vomit (3) Hypercapnic respiratory failure: Status: Acute Code(s): J96.92 - Respiratory failure, unspecified with hypercapnia (4) Metabolic encephalopathy: Status: Acute Code(s): G93.41 - Metabolic encephalopathy (5) T2DM (type 2 diabetes mellitus): Status: Acute Code(s): E11.9 - Type 2 diabetes mellitus without complications Qualifiers: Diabetes mellitus complication status: with other specified complication 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 use Qualified Code(s): E11.69 - Type 2 diabetes mellitus with other specified complication (6) HLD (hyperlipidemia): Status: Acute Code(s): E78.5 - Hyperlipidemia, unspecified Qualifiers: Hyperlipidemia type: unspecified Qualified Code(s): E78.5 - Hyperlipidemia, unspecified (7) HTN (hypertension), benign: Status: Acute Code(s): I10 - Essential (primary) hypertension (8) Aspiration pneumonia: Status: Acute Code(s): J69.0 - Pneumonitis due to inhalation of food and vomit Meds Home Medications and Allergies Home Medications ?Medication ?Instructions ?Recorded ?Confirmed ?Type aspirin 81 mg tablet,delayed 81 mg PO DAILY 10/26/23 03/12/25 History release carvedilol 25 mg tablet (Coreg) 25 mg PO BID #60 tabs 04/18/24 03/11/25 Rx Held on 03/14/25. Instructions: Pending reevaluation of blood pressure at nursing facility divalproex 500 mg tablet,delayed 500 mg PO TID 04/18/24 03/11/25 History release loratadine 10 mg tablet 10 mg PO DAILY 04/18/24 03/12/25 History docusate sodium 100 mg tablet 100 mg PO BID 06/13/24 03/11/25 History (Stool Softener) torsemide 20 mg tablet 40 mg PO DAILY 06/13/24 03/11/25 History Held on 03/14/25. Instructions: Pending reevaluation of blood pressure at nursing facility trazodone 50 mg tablet 50 mg PO HS 06/13/24 03/11/25 History Held on 03/14/25. Instructions: Pending reevaluation at nursing facility pen needle, diabetic, safety 30 #100 ea 12/11/24 03/14/25 History gauge x 3/16 (AutoShield Duo Pen Needle) rosuvastatin 40 mg tablet 40 mg PO HS 12/11/24 03/11/25 History acetaminophen 500 mg capsule 500 mg PO Q6H PRN pain 12/18/24 03/11/25 History latanoprost 0.005 % eye drops 1 drp ophthalmic (eye) HS 12/18/24 03/12/25 History polyethylene glycol 3350 17 17 g PO DAILY 12/18/24 03/11/25 History gram/dose oral powder (Miralax) calcium citrate 500 mg PO TID 03/11/25 03/11/25 History empagliflozin 25 mg tablet 25 mg PO DAILY 03/11/25 03/12/25 History (Jardiance) potassium chloride 10 mEq 20 meq PO DAILY 03/11/25 03/12/25 History tablet,extended release risperidone 2 mg tablet (Risperdal) 2 mg PO BID 03/11/25 03/11/25 History timolol maleate 0.5 % once daily 1 drp ophthalmic (eye) DAILY 03/11/25 03/11/25 History eye drops lisinopril 10 mg tablet 10 mg PO BID 03/12/25 03/12/25 History Held on 03/14/25. Instructions: Pending reevaluation of blood pressure at nursing facility multivitamin 1 tab PO DAILY 03/12/25 03/12/25 History amoxicillin 875 mg-potassium 1 tab PO BID #3 tabs 03/14/25 Rx clavulanate 125 mg tablet insulin aspart U-100 100 unit/mL 4 unit (0.04 mL) SQ TID 30 days #0 03/14/25 03/12/25 Rx (3 mL) subcutaneous pen mL insulin degludec 100 unit/mL (3 14 unit (0.14 mL) SQ DAILY 30 days 03/14/25 03/12/25 Rx mL) subcutaneous pen #0 mL levetiracetam 500 mg tablet 500 mg PO BID #60 tabs 03/14/25 Rx New Prescriptions to Start Prescriptions: amoxicillin-pot clavulanate Eligio Lopez levetiracetam Eligio Lopez Allergies Allergy/AdvReac Type Severity Reaction Status Date / Time No Known Allergies Allergy Verified 03/11/25 16:01 Discharge Plan Disposition Patient Disposition: er Intermediate Care Fac Condition: Fair Discharge Order Discharge Orders: Discharge Order (Routine); Ordered 03/14/25 Ordered By: Eligio Lopez Follow up Plan Follow up with: Karen Zarate APRN [Primary Care Provider, Medical] - Enter time for follow up Referral Note: TO SEE AT FACILITY Prescriptions/Medication Reconciliation: New amoxicillin-pot clavulanate 875-125 mg tablet 1 tab PO BID Qty: 3 0RF Rx Instructions: start evening of 03/14/25 levetiracetam 500 mg tablet 500 mg PO BID Qty: 60 0RF Continued docusate sodium [Stool Softener] 100 mg tablet 100 mg PO BID rosuvastatin 40 mg tablet 40 mg PO HS (DME) AutoShield Duo Pen Needle 30 gauge x 3/16 needle See Rx Instructions .ROUTE .MEDSUPPLY Qty: 100 Rx Instructions: As directed aspirin 81 mg tablet,delayed release (DR/EC) 81 mg PO DAILY Patient Comments: TAKE ONE (1) TABLET BY MOUTH EVERY DAY divalproex 500 mg tablet,delayed release (DR/EC) 500 mg PO TID loratadine 10 mg tablet 10 mg PO DAILY latanoprost 0.005 % drops 1 drp ophthalmic (eye) HS Rx Instructions: one drop in each eye before bed polyethylene glycol 3350 [Miralax] 17 gram/dose powder 17 g PO DAILY acetaminophen 500 mg capsule 500 mg PO Q6H PRN (Reason: pain) potassium chloride 10 mEq Tablet Extended Release 20 meq PO DAILY risperidone [Risperdal] 2 mg Tablet 2 mg PO BID timolol maleate 0.5 % Drops, Once Daily 1 drp OPHTHALMIC (EYE) DAILY calcium citrate 250 mg calcium Tablet 500 mg PO TID Rx Instructions: with meals for hypocalcemia Jardiance 25 mg Tablet 25 mg PO DAILY multivitamin Tablet 1 tab PO DAILY Changed insulin aspart U-100 100 unit/mL (3 mL) Insulin Pen 4 unit SQ TID 30 Days Qty: 0 0RF Rx Instructions: before meals and at bedtime. Hold if FSBS less than or equal to 100 insulin degludec 100 unit/mL (3 mL) Insulin Pen 14 unit SQ DAILY 30 Days Qty: 0 0RF Held torsemide 20 mg tablet 40 mg PO DAILY Hold Instructions: Pending reevaluation of blood pressure at nursing facility trazodone 50 mg tablet 50 mg PO HS Hold Instructions: Pending reevaluation at nursing facility carvedilol [Coreg] 25 mg tablet 25 mg PO BID Qty: 60 5RF Hold Instructions: Pending reevaluation of blood pressure at nursing facility Rx Instructions: give with food (meal/snack) lisinopril 10 mg tablet 10 mg PO BID Hold Instructions: Pending reevaluation of blood pressure at nursing facility Problem Reconciliation Problems Reviewed?: Yes Patient Discharge Instructions ACTIVITY: Continue current activity DIET: continue same diet Print Language: Icelandic Providers Primary Care Provider: Karen Zarate Admit Provider: Chava Mai Attending Provider: Chava Mai
[2025-03-14] MEDS: PHA TO NURSING INSTRUCTION 1 EACH NOTAPPLIC (12:00)
--- NOTE | 2025-03-14 12:04 | PC.NURSE ---
PT'S BROTH INFORMED AT APPROX 10 AM THAT PATIENT WOULD BE TRANSFERRED BACK TO NURSING FACILITY TODAY.
--- NOTE | 2025-03-14 12:46 | PC.NURSE ---
ATTEMPTED TO CALL REPORT TO CUSTODIAL, WILL TRY AGAIN IN 5 MINUTES
[2025-03-14 13:36] LABS: Vancomycin,Trough 11.3 ug/mL (5.0-10.0)
== END 2025-03-14 13:48 | DRG 871 ==
LOC: ER 14:32 → ICU 14:36
PROVIDERS: Internal Medicine Adolescent Medicine; Physician Assistant; Admitting Provider Student in an Organized Health Care Education/Training Program; Emergency Provider Emergency Medicine; PCP Nurse Practitioner Family; Visit Provider Student in an Organized Health Care Education/Training Program
DX: A41.9 Sepsis, unspecified organism (principal); G93.41 Metabolic encephalopathy; J96.01 Acute respiratory failure with hypoxia; R65.21 Severe sepsis with septic shock; J69.0 Pneumonitis due to inhalation of food and vomit; J18.9 Pneumonia, unspecified organism; J96.22 Acute and chronic respiratory failure with hypercapnia; K56.41 Fecal impaction; I10 Essential (primary) hypertension; F39 Unspecified mood [affective] disorder; I87.2 Venous insufficiency (chronic) (peripheral); E11.69 Type 2 diabetes mellitus with other specified complication; E78.5 Hyperlipidemia, unspecified; F41.9 Anxiety disorder, unspecified; R56.9 Unspecified convulsions; Z66 Do not resuscitate; Z79.82 Long term (current) use of aspirin; Z79.4 Long term (current) use of insulin; Z79.84 Long term (current) use of oral hypoglycemic drugs; Z79.899 Other long term (current) drug therapy
CPT/HCPCS: 0223U; 36415; 70450; 71045; 71275; 74177; 80053; 80165; 80202; 81001; 82140; 82803; 82962; 83036; 83605; 83690; 83735; 83880; 84145; 84439; 84443; 84484; 85025; 85610; 86140; 87040; 89220; 93005; 94640; 94760; 94761; 95819; 97162; 97166; 97530; 99285; J1650; J1953; J2405; J2543; J3375; J7120; Q9967